=== PATIENT | female | born 1955 | race Caucasian/White ===

== ENCOUNTER → 2017-01-03 | Outpatient (CLI) | payer MEDICARE ==
--- NOTE | 2017-01-03 13:41 | REPMRS ---
Patient History The patient states she had a clinical breast exam in Patient is postmenopausal. No known family history of cancer. Digital Woman Screen Mammo: January 03, 2017 - Exam #: [id number] Bilateral CC and MLO view(s) were taken. Technologist: Luna Dutta, Technologist Prior study comparison: October 23, 2015, digital woman screen mammo performed at [facility]. October 21, 2014, digital woman screen mammo performed at [facility] to [facility]. FINDINGS: There are scattered fibroglandular densities. There has been no change in the appearance of the mammogram from the prior studies. There is a mild amount of residual fibroglandular tissue which is fairly symmetric. There is no interval development of dominant mass, architectural distortion, or clustered microcalcification suggestive of malignancy. ASSESSMENT: BI-RADS/ACR category 1 mammogram. Negative. Recommendation Routine screening mammogram in 1 year (for women over age 40). This mammogram was interpreted with the aid of an FDA-approved computer-aided dectection system. Electronically Signed By: Terell Zarate MD 01/03/17 1103
== END ==
LOC: M WHC 11:00
PROVIDERS: ATTEND Nurse Practitioner Family
DX: Z12.31 Encounter for screening mammogram for malignant neoplasm of breast (principal); Z78.0 Asymptomatic menopausal state

== ENCOUNTER → 2017-10-01 | Outpatient (CLI) | payer MEDICARE ==
--- NOTE | 2017-10-03 20:09 | SLEEPHOME ---
DATE OF PROCEDURE: 10/01/2017 ORDERED BY: Dea Sharma Diagnostic home sleep testing was performed due to concern for the obstructive sleep apnea syndrome. For testing, a NOX-T3 respiratory monitoring device was used. Continuous record was made of pulse, oxygen saturation, air flow, chest and abdominal strain and body position. 11 hours and 59 minutes of data were reviewed. 8 hours and 23 minutes were marked as time in bed. During the interval marked time in bed, there were 72 respiratory events identified of 10 seconds in duration or greater for a respiratory event index of 8.6. The events were primarily obstructive. Baseline pulse rate 81 beats per minute. Pulse rate ranged 68 to 105. Baseline saturation 91%. Lowest oxygen saturation 83%. Testing was performed in both the supine and nonsupine positions. IMPRESSION: Abnormal home sleep test with repetitive respiratory events and oxygen desaturation to 83% with a respiratory event index of 8.6 is consistent with the obstructive sleep apnea syndrome. RECOMMENDATION: The patient should be encouraged to undergo a formal sleep evaluation and in laboratory pressure titration.
== END ==
LOC: M SLEEP HO 09:46
PROVIDERS: ATTEND Nurse Practitioner Adult Health
DX: G47.33 Obstructive sleep apnea (adult) (pediatric) (principal)

== ENCOUNTER → 2018-01-05 | Outpatient (CLI) | payer MEDICARE | LOC: M WHC 10:24 | DX: Z12.31 Encounter for screening mammogram for malignant neoplasm of breast (principal); Z01.419 Encounter for gynecological examination (general) (routine) without abnormal findings (principal); Z78.0 Asymptomatic menopausal state; Z12.12 Encounter for screening for malignant neoplasm of rectum | CPT/HCPCS: 77067 ==

== ENCOUNTER → 2018-03-27 | Outpatient (CLI) | payer MEDICARE ==
[~2018-03-27] MED LIST: E-Z-GAS II EFFERVESCENT PACKET (SODIUM BICARB./CITRIC ACID/SIMETHICONE) As Ordered; E-Z-HD 98% w/w 340GM SUSP BTL As Ordered; E-Z-PAQUE 96% w/w SUSP 176GM BTL As Ordered
== END ==
LOC: M RAD 09:23
DX: K21.9 Gastro-esophageal reflux disease without esophagitis (principal); R10.13 Epigastric pain; K44.9 Diaphragmatic hernia without obstruction or gangrene
CPT/HCPCS: 74245

== ENCOUNTER 2018-08-11 19:06 | Emergency (ER) | payer MEDICARE ==
[2018-08-11] MEDS: ASPIRIN 325 MG TAB PO (19:45)
[2018-08-11 20:10] LABS: BASO % 0.4 % (0.0-1.0); EOS # 0.1 10^3/uL (0.0-0.50); EOS % 0.5 % (0.0-3.0); HEMATOCRIT 38.6 % (36.0-47.0); HEMOGLOBIN 12.4 g/dl (12.0-15.5); IMMATURE GRANULOCYTE % 0.3 % (0-3.0); LYMPH # 2.6 10^3/uL (1.5-4.5); LYMPH % 23.8 % (24.0-44.0); MEAN CORPUSCULAR HEMOGLOBIN 26.4 pg (27.0-33.0); MEAN CORPUSCULAR HGB CONC 32.1 g/dl (32.0-36.5); MEAN CORPUSCULAR VOLUME 82.3 fl (80.0-96.0); MONO # 0.7 10^3/uL (0.0-0.8); MONO % 6.5 % (0.0-5.0); NEUTROPHILS # 7.4 10^3/uL (1.8-7.7); NEUTROPHILS % 68.5 % (36.0-66.0); PLATELET COUNT, AUTOMATED 294 10^3/uL (150-450); RED BLOOD COUNT 4.69 10^6/uL (4.00-5.40); RED CELL DISTRIBUTION WIDTH 16.7 % (11.5-14.5); WHITE BLOOD COUNT 10.8 10^3/uL (4.0-10.0)
[2018-08-11] MEDS: NS 500 ML IV (20:18)
[2018-08-11 20:32] LABS: INR 0.92; PROTHROMBIN TIME 12.5 SECONDS (12.1-14.4)
[2018-08-11 20:33] LABS: PARTIAL THROMBOPLASTIN TIME 26.4 SECONDS (25.4-37.6)
[2018-08-11 20:50] LABS: ANION GAP 8 MEQ/L (8-16); BLOOD UREA NITROGEN 16 MG/DL (7-18); CALCIUM LEVEL 11.2 MG/DL (8.8-10.2); CARBON DIOXIDE LEVEL 26 MEQ/L (21-32); CHLORIDE LEVEL 107 MEQ/L (98-107); CK-MB VALUE MASS < 1.0 NG/ML (<3.6); CPK CREATINE PHOSPHOKINASE 56 U/L (26-192); CREATININE FOR GFR 1.02 MG/DL (0.55-1.30); GLOMERULAR FILTRATION RATE 58.1 (>45); GLUCOSE, FASTING 120 MG/DL (70-100); MB/CK RELATIVE INDEX 1.79 (< OR =4); POTASSIUM SERUM 4.4 MEQ/L (3.5-5.1); SODIUM LEVEL 141 MEQ/L (136-145); TROPONIN I < 0.02 NG/ML (< 0.10)
[2018-08-11] MEDS ORDERED: ISOVUE-370 76% 100ML VIAL (Q9967) As Ordered (22:01)
[2018-08-11] MEDS: cloNIDine 0.1 MG TAB PO (22:58)
[2018-08-11] MEDS: KETOROLAC 30 MG/ML VIAL (J1885) IV (23:52)
[2018-08-12 00:38] LABS: CK-MB VALUE MASS < 1.0 NG/ML (<3.6); CPK CREATINE PHOSPHOKINASE 64 U/L (26-192); MB/CK RELATIVE INDEX 1.56 (< OR =4); TROPONIN I 0.02 NG/ML (< 0.10)
== END 2018-08-12 01:00 | disposition home or self-care (01) ==
LOC: M ED 08-12 01:00
DX: R07.89 Other chest pain (principal); R52 Pain, unspecified; I10 Essential (primary) hypertension; M79.7 Fibromyalgia; Z87.891 Personal history of nicotine dependence; Z79.82 Long term (current) use of aspirin; Z79.899 Other long term (current) drug therapy; Z88.2 Allergy status to sulfonamides
CPT/HCPCS: Q9967

== ENCOUNTER → 2018-08-18 | Outpatient (CLI) | payer MEDICARE ==
[2018-08-18 19:32] LABS: BASO # 0.1 10^3/uL (0.0-0.2); BASO % 0.6 % (0.0-1.0); EOS # 0.1 10^3/uL (0.0-0.50); EOS % 1.2 % (0.0-3.0); HEMATOCRIT 43.1 % (36.0-47.0); HEMOGLOBIN 13.6 g/dl (12.0-15.5); IMMATURE GRANULOCYTE % 0.5 % (0-3.0); LYMPH # 1.9 10^3/uL (1.5-4.5); LYMPH % 19.1 % (24.0-44.0); MEAN CORPUSCULAR HEMOGLOBIN 26.7 pg (27.0-33.0); MEAN CORPUSCULAR HGB CONC 31.6 g/dl (32.0-36.5); MEAN CORPUSCULAR VOLUME 84.7 fl (80.0-96.0); MONO # 0.6 10^3/uL (0.0-0.8); MONO % 5.9 % (0.0-5.0); NEUTROPHILS # 7.4 10^3/uL (1.8-7.7); NEUTROPHILS % 72.7 % (36.0-66.0); PLATELET COUNT, AUTOMATED 415 10^3/uL (150-450); RED BLOOD COUNT 5.09 10^6/uL (4.00-5.40); RED CELL DISTRIBUTION WIDTH 16.5 % (11.5-14.5); WHITE BLOOD COUNT 10.2 10^3/uL (4.0-10.0)
[2018-08-18 20:02] LABS: ALBUMIN 4.1 GM/DL (3.2-5.2); ALBUMIN/GLOBULIN RATIO 1.05 (1.00-1.93); ALKALINE PHOSPHATASE 88 U/L (45-117); ALT/SGPT 55 U/L (12-78); ANION GAP 9 MEQ/L (8-16); AST/SGOT 38 U/L (7-37); BILIRUBIN,TOTAL 0.3 MG/DL (0.2-1.0); BLOOD UREA NITROGEN 15 MG/DL (7-18); CALCIUM LEVEL 11.5 MG/DL (8.8-10.2); CARBON DIOXIDE LEVEL 24 MEQ/L (21-32); CHLORIDE LEVEL 108 MEQ/L (98-107); FREE T4 1.15 NG/DL (0.76-1.46); GLOMERULAR FILTRATION RATE 37.2 (>45); GLUCOSE, FASTING 139 MG/DL (70-100); POTASSIUM SERUM 4.8 MEQ/L (3.5-5.1); SODIUM LEVEL 141 MEQ/L (136-145)
[2018-08-18 20:04] LABS: FOLATE > 24.0 NG/ML; PTH INTACT 313.8 PG/ML (18.5-88.0); TOTAL 25(OH) VITAMIN D 11.4 NG/ML (30.0-100.0)
== END ==
LOC: M WUC 16:31
DX: J06.9 Acute upper respiratory infection, unspecified (principal); R05 Cough; R53.83 Other fatigue; Z79.899 Other long term (current) drug therapy
CPT/HCPCS: 82746

== ENCOUNTER → 2019-01-06 | Outpatient (CLI) | payer MEDICARE ==
[~2019-01-06] MED LIST changes: +AMIT50TA PO; +ASPI81CH32 PO; +CO Q200C10 PO; -E-Z-GAS II EFFERVESCENT PACKET (SODIUM BICARB./CITRIC ACID/SIMETHICONE) As Ordered; -E-Z-HD 98% w/w 340GM SUSP BTL As Ordered; -E-Z-PAQUE 96% w/w SUSP 176GM BTL As Ordered; +FISH1000 PO; +GARL10004 PO; +LOSA100T50 PO; +MULTCAP PO; +TURM500T PO
--- NOTE | 2019-01-06 11:53 | REPMRS ---
Patient History The patient states she had a clinical breast exam in 01/05 No known family history of cancer. Digital Woman Screen Mammo: January 06, 2019 - Exam #: [id number] Bilateral CC and MLO view(s) were taken. Technologist: Kelsey Kahn, Technologist Prior study comparison: January 05, 2018, digital woman screen mammo performed at [facility]. January 03, 2017, digital woman screen mammo performed at [facility]. FINDINGS: There are scattered fibroglandular densities. There has been no change in the appearance of the mammogram from the prior studies. There is a mild amount of residual fibroglandular tissue which is fairly symmetric. There is no interval development of dominant mass, architectural distortion, or clustered microcalcification suggestive of malignancy. There are scattered, small, benign calcifications of doubtful clinical significance. 3-D tomosynthesis shows no additional findings. The patient's Tyrer-Cuzick lifetime risk assessment score is 5.2 %. No significant changes when compared with prior studies. Assessment: BI-RADS/ACR category 2 mammogram. Benign Findings. Recommendation Routine screening mammogram in 1 year (for women over age 40). This mammogram was interpreted with the aid of an FDA-approved computer-aided dectection system. A. Negative x-ray reports should not delay biopsy if a dominant or clinically suspicious mass is present. B. Four to eight percent of cancers are not identified by mammography. C. Adenosis and dense breast may obscure an underlying neoplasm. Electronically Signed By: Renaldo Oh MD 01/06/19 [id number]
--- NOTE | 2019-01-07 11:08 | DEXA ---
AP SPINE L1 - L4 1.239 0.4 1.9 LT FEMUR TOTAL 0.935 -0.6 0.6 LT NECK 0.787 -1.8 -0.3 RT FEMUR TOTAL 0.864 -1.1 0.1 RT NECK 0.845 -1.4 0.1 TOTAL BODY TOTAL OTHER COMMENTS: Normal bone densitometry of the spine. There is low bone density of the left hip. There is low bone density of the right hip. There is degenerative change in the spine which may artificially elevate the BMD. The decreased density of the spine does not represent a significant change since 11/08/2010. The decreased density of the left hip does represent a significant change since 11/08/2010. The decreased density of the right hip does represent a significant change. The density of the spine has decreased 0.3% since the initial exam on 11/08/2002. The spine density has increased 1.8% since the most recent exam on 11/08/2010. The density of the left hip has decreased 12.1% since the initial exam on 11/08/2002. The density of the left hip has decreased 6.5% since the most recent exam on 11/08/2010. The density of the right hip has decreased 6.9% since the initial exam on 11/08/2002. The density of the right hip has decreased 2.4% since the most recent exam on 11/08/2010. FOLLOW-UP: Recommendation for the next bone density exam: 2 years. KARL
== END ==
LOC: M WHC 09:03
PROVIDERS: ATTEND Nurse Practitioner Family
DX: Z01.419 Encounter for gynecological examination (general) (routine) without abnormal findings (principal); Z12.31 Encounter for screening mammogram for malignant neoplasm of breast; N95.9 Unspecified menopausal and perimenopausal disorder; Z12.12 Encounter for screening for malignant neoplasm of rectum
CPT/HCPCS: 77063; 77067; 77080; 82270; G0101

== ENCOUNTER → 2019-02-27 | Outpatient (CLI) | payer MEDICARE ==
[~2019-02-27] MED LIST changes: -ASPI81CH32 PO; +ASPI81CH33 PO
--- NOTE | 2019-02-27 09:55 | REP ---
CT abdomen pelvis without IV or oral contrast: History: Kidney calculus. Comparison CT study March 10, 2011. CT findings: Preliminary digital tank stave assembler radiograph demonstrates an unremarkable bowel gas pattern. The lung bases are clear. There is no focal liver lesion. The gallbladder is not seen. By history, the gallbladder is surgically absent. No adrenal lesion is seen. Spleen is unremarkable. No pancreatic abnormalities observed. Small and large intestinal bowel loops are normal in the abdomen and pelvis. Normal appendix is seen in the right lower quadrant. Uterus is surgically absent as well. Urinary bladder is intact. The kidneys are morphologically intact. No hydronephrosis or intrarenal calculus is seen. No ureteral calculus is observed on either side. No pelvic mass or adenopathy is seen. No abdominal wall defect is appreciated. Bone window settings show no bony destructive lesion. Impression: No urinary tract calculus noted. No hydronephrosis seen. Post cholecystectomy and hysterectomy. Otherwise unremarkable CT abdomen and pelvis. Electronically Signed by Wu Roth MD 02/27/2019 02:26 P
== END ==
LOC: M RAD 08:49
PROVIDERS: ATTEND Internal Medicine Nephrology
DX: Z87.442 Personal history of urinary calculi (principal); Z90.49 Acquired absence of other specified parts of digestive tract; Z90.710 Acquired absence of both cervix and uterus

== ENCOUNTER → 2019-05-05 | Outpatient (REF) | payer MEDICARE | LOC: M LAB REF 11:55 | PROVIDERS: ATTEND Internal Medicine Endocrinology, Diabetes & Metabolism | DX: E21.3 Hyperparathyroidism, unspecified (principal) ==

== ENCOUNTER 2019-08-27 12:49 | Inpatient (IN) | payer MEDICARE ==
[~2019-08-27] VITALS: Ht 160 cm; Wt 105.8 kg
[2019-08-27] MEDS ORDERED: NS 1,000 ML IV SCH (13:20)
[2019-08-27] MEDS ORDERED: CINA30TA5 PO (13:21)
[2019-08-27] MEDS ORDERED: CARV6.25 PO (13:21)
[2019-08-27] MEDS ORDERED: ASPIRIN 81 MG CHEW TABLET PO ONE (13:30)
[2019-08-27] MEDS: METOPROLOL 5 MG/5 ML VIAL IV SCH ×3 (13:54→14:14)
[2019-08-27 13:58] LABS: BASO # 0.1 10^3/uL (0.0-0.2); BASO % 0.6 % (0.0-1.0); EOS # 0.2 10^3/uL (0.0-0.5); EOS % 2.1 % (0.0-3.0); HEMATOCRIT 44.8 % (36.0-47.0); HEMOGLOBIN 14.5 g/dl (12.0-15.5); LYMPH # 3.7 10^3/uL (1.5-5.0); LYMPH % 34.8 % (24.0-44.0); MEAN CORPUSCULAR HEMOGLOBIN 28.7 pg (27.0-33.0); MEAN CORPUSCULAR HGB CONC 32.4 g/dl (32.0-36.5); MEAN CORPUSCULAR VOLUME 88.5 fl (80.0-96.0); MONO # 0.8 10^3/uL (0.0-0.8); MONO % 7.8 % (0.0-5.0); NEUTROPHILS # 5.8 10^3/uL (1.5-8.5); NEUTROPHILS % 54.6 % (36.0-66.0); PLATELET COUNT, AUTOMATED 324 10^3/uL (150-450); RED BLOOD COUNT 5.06 10^6/uL (4.00-5.40); WHITE BLOOD COUNT 10.5 10^3/uL (4.0-10.0)
--- NOTE | 2019-08-27 14:02 | REP ---
Chest x-ray: Two views. History: Chest pain. Comparison chest x-ray: February 07, 2015. Findings: EKG monitoring electrodes overlie the chest. Heart is not enlarged. The thoracic aorta somewhat tortuous. The pleural angles are sharp. There are degenerative changes in the thoracic spine. No infiltrate is seen in the lung genao. Impression: No active disease. Electronically Signed by Wu Roth MD 08/27/2019 01:53 P
[2019-08-27 14:07] LABS: INR 0.98; PROTHROMBIN TIME 12.7 SECONDS (11.8-14.0)
[2019-08-27 14:08] LABS: PARTIAL THROMBOPLASTIN TIME 30.2 SECONDS (25.0-38.4)
[2019-08-27 14:29] LABS: ALBUMIN 3.9 GM/DL (3.2-5.2); ALT/SGPT 29 U/L (12-78); BILIRUBIN,DIRECT < 0.1 MG/DL (0.0-0.2); BILIRUBIN,TOTAL 0.4 MG/DL (0.2-1.0); BLOOD UREA NITROGEN 14 MG/DL (7-18); CALCIUM LEVEL 8.1 MG/DL (8.8-10.2); CARBON DIOXIDE LEVEL 25 MEQ/L (21-32); CHLORIDE LEVEL 106 MEQ/L (98-107); CK-MB VALUE MASS < 1.0 NG/ML (<3.6); CPK CREATINE PHOSPHOKINASE 109 U/L (26-192); CREATININE FOR GFR 1.17 MG/DL (0.55-1.30); FREE T4 1.08 NG/DL (0.76-1.46); GLOMERULAR FILTRATION RATE 49.4 (>45); GLUCOSE, FASTING 91 MG/DL (70-100); MB/CK RELATIVE INDEX 0.92 (< OR =4); NT-PRO BNP 1618 PG/ML (<125); POTASSIUM SERUM 4.4 MEQ/L (3.5-5.1); SODIUM LEVEL 142 MEQ/L (136-145); TOTAL PROTEIN 7.9 GM/DL (6.4-8.2); TROPONIN I < 0.02 NG/ML (< 0.10)
[2019-08-27] MEDS ORDERED: VITA50005 PO (15:22)
[2019-08-27] MEDS ORDERED: COQ1100C5 PO (15:22)
[2019-08-27] MEDS ORDERED: GARL3CAP4 PO (15:22)
[2019-08-27] MEDS ORDERED: RA T500C2 PO (15:22)
[2019-08-27] MEDS ORDERED: MOM 30ML SUSPENSION UDC PO PRN (16:00)
[2019-08-27] MEDS ORDERED: ACETAMINOPHEN TAB 650MG DOSE (2X325MG) PO PRN (16:00)
--- NOTE | 2019-08-27 17:03 | HPEPDOC ---
[facility] Medical History & Physical Date of Admission Aug 27, 2019 Date of Service: Aug 27, 2019 History and Physical CHIEF COMPLAINT: Sent from nephrology for concerns of irregular heartbeat HISTORY OF PRESENT ILLNESS: Ms. Saenz is a 63-year-old female with a past medical history significant for narcolepsy, hyperparathyroidism, hypertension, fibromyalgia, who presents to the ED following a nephrology consult where concerns of an irregular heartbeat were noted. Upon admission to the ED she was noted to be in sustained A. fib. She states that she is asymptomatic and that she feels no palpitations, fluttering, chest pain, presyncope. She states she had no previous knowledge of her A. fib. She denies any existence of any previous heart condition. She also states no known family history of cardiac illness except for mother who has CHF. Upon admission to the ER, her heart rate is noted to be proximately 170 bpm which was subsequently lowered to the 140s by administration of 5 mg metoprolol tartrate. PAST MEDICAL HISTORY: Narcolepsy. Hyperparathyroidism-unspecified Hypertension controlled , sertraline 100 mg tablet Previous history of hyperlipidemia-has been off meds since probably 5 years. Fibromyalgia-not on any medications PAST SURGICAL HISTORY: C-sections 2. Cholecystectomy. Partial hysterectomy. Attempted parathyroidectomy but unable to find parathyroids. 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 Quit 40 years ago ETOH: Social drinker Illicit drug use: Denies IV drug use: Denies Other relevant social factors: Drinks 2 cups of coffee a day FAMILY HISTORY: Father: Denies significant history Mother: CHF ALLERGIES: Sulfonamide antibiotics. Pruritus. REVIEW OF SYSTEMS: CONSTITUTIONAL: Denies recent weight gain, fever, chills, fatigue HEENT: Denies vision or hearing changes, headache, pharyngitis, lymphadenopathy CARDIOVASCULAR: Denies chest pain, palpitations, fluttering heart, syncope RESPIRATORY: Denies short of breath, cough, pleuritic chest pain GASTROINTESTINAL: Denies abdominal pain, distention, nausea, vomiting, constipation, diarrhea GENITOURINARY: Denies dysuria, polyuria or oliguria MUSCULOSKELETAL: Denies recent onset muscle weakness. NEUROLOGICAL: Denies focal deficits, seizure, headache ENDOCRINE: Denies recent weight loss, fever, heart fluttering, palpitations HEMATOLOGIC/LYMPHATIC: Denies recent weight loss, fever, chills, edema, pharyngitis HOME MEDICATIONS: Please see below. PHYSICAL EXAMINATION: VITAL SIGNS: Temperature 97.7, pulse 146, respiratory rate 20, blood pressure 139/80, pulse oximetry 98% on room air. GENERAL APPEARANCE: Patient is a obese female in no apparent distress. HEENT: No scleral icterus, jaundice, lymphadenopathy, pharyngitis, nystagmus. Overall atraumatic CARDIOVASCULAR: Irregularly irregular heart rhythm noted. Patient's pulses are unsynchronized from heartbeat. LUNGS: Lungs clear to auscultation bilaterally with vesicular lung sounds heard throughout ABDOMEN: Obese abdomen noted. Normal bowel sounds all 4 quadrants. No organome renée, distention, bruising, scars, or bruits were noted. No tenderness to palpation. MUSCULOSKELETAL: No muscle atrophy was noted. Normal range of motion in all 4 extremities. EXTREMITIES: No edema noted. Extremities were well-perfused with normal capillary refill times. No excoriations, rashes were noted. No cyanosis. Patient has her fibromyalgia and was noted to have allodynia upon palpation of arms and legs. NEUROLOGICAL: No focal deficits noted. Patient alert and oriented 3. Patient has fibromyalgia and was noted to have allodynia upon palpation of her arms and legs. PSYCHIATRIC: Patient will mannered and cooperative to exam. No history of psychiatric illness. LABORATORY DATA: See below. IMAGING: Chest x-ray upon admission was negative for active disease. MICROBIOLOGY: Please see below. ASSESSMENT: #A. Fib with RVR: Patient presents with new onset A. fib, which was noted during a nephrology examination today. Patient was unaware of her atrial fibrillation and has no previous cardiac history. Upon admission to ER, patient's heart rate was approximately 170 bpm and was subsequently lowered by administration of 5 mg metoprolol to 140 beats per minute. -Rate control with metoprolol tartrate 25 mg PO Q6H [facility] with targeted heart rate below 120. -Anticoagulation with Apixaban 5 mg PO BID QUANG -Patient placed on telemetry for 48 hours -Activity as tolerated -Echocardiogram ordered and pending. #Hypertension: Patient has history of hypertension. She was being medicated with losartan and carvedilol. Patient's home medications will be held during her stay at hospital. -Start metoprolol tartrate 25 mg every 6 hours by mouth -If patient hypertensive becomes hypertensive consider continuing Losartan 100mg -BNP noted to be 1618 upon admission. Chest x-ray negative for enlarged heart and no edema noted. -Exam patient denies orthopnea, exertional dyspnea, PND. Echocardiogram will show signs of heart failure is present. #Hyperparathyroidism-unspecified: Patient has previous history of hyperparathyroidism. Upon admission to ER. Patient's calcium was 8.1. -Continue home medication Cinacalcet 30 mg twice a day by mouth -Serial BMPs will show trended patient's calcium and will consider holding cinacalcet calcium levels continue to drop. #Fibromyalgia: She has history of fibromyalgia, but is not currently taking any medications. Patient is sensitive to touch, so will keep her fibromyalgia in mind during her stay at the hospital. -Continue Amitryptyline HCl 50 mg PO BID Vital Signs Vital Signs Date Time Temp Pulse Resp B/P (MAP) Pulse Ox O2 Delivery O2 Flow Rate FiO2 08/27/19 14:20 146 139/80 (99) 96 Room Air 08/27/19 12:50 97.7 20 Laboratory Data Labs 24H Laboratory Tests 2 08/27/19 13:20: Immature Granulocyte % (Auto) 0.1, White Blood Count 10.5H, Red Blood Count 5.06, Hemoglobin 14.5, Hematocrit 44.8, Mean Corpuscular Volume 88.5, Mean Corpuscular Hemoglobin 28.7, Mean Corpuscular Hemoglobin Concent 32.4, Red Cell Distribution Width 14.6H, Platelet Count 324, Neutrophils (%) (Auto) 54.6, Lymphocytes (%) (Auto) 34.8, Monocytes (%) (Auto) 7.8H, Eosinophils (%) (Auto) 2.1, Basophils (%) (Auto) 0.6, Neutrophils # (Auto) 5.8, Lymphocytes # (Auto) 3.7, Monocytes # (Auto) 0.8, Eosinophils # (Auto) 0.2, Basophils # (Auto) 0.1, Nucleated Red Blood Cells % (auto) 0.0, Prothrombin Time 12.7, Prothromb Time International Ratio 0.98, Activated Partial Thromboplast Time 30.2, Anion Gap 11, Glomerular Filtration Rate 49.4, Calcium Level 8.1L, Aspartate Amino Transf (AST/SGOT) 23, Alanine Aminotransferase (ALT/SGPT) 29, Alkaline Phosphatase 77, Total Bilirubin 0.4, Direct Bilirubin < 0.1, Total Creatine Kinase 109, Creatine Kinase MB < 1.0, Creatine Kinase MB Relative Index 0.92, Troponin I < 0.02, RC-[id number]-M-Type Natriuretic Peptide 1618H, Total Protein 7.9, Albumin 3.9, Albumin/Globulin Ratio 0.98L, Free Thyroxine 1.08 CBC/BMP Laboratory Tests 08/27/19 13:20 Red Blood Count 5.06, Mean Corpuscular Volume 88.5, Mean Corpuscular Hemoglobin 28.7, Mean Corpuscular Hemoglobin Concent 32.4, Red Cell Distribution Width 14.6 H, Neutrophils (%) (Auto) 54.6, Lymphocytes (%) (Auto) 34.8, Monocytes (%) (Auto) 7.8 H, Eosinophils (%) (Auto) 2.1, Basophils (%) (Auto) 0.6, Neutrophils # (Auto) 5.8, Lymphocytes # (Auto) 3.7, Monocytes # (Auto) 0.8, Eosinophils # (Auto) 0.2, Basophils # (Auto) 0.1 Home Medications Scheduled Amitriptyline HCl (Amitriptyline HCl) 50 Mg Tab, 50 MG PO QHS Carvedilol (Carvedilol) 6.25 Mg Tablet, 6.25 MG PO BID Cinacalcet HCl (Cinacalcet HCl) 30 Mg Tablet, 30 MG PO BID Ergocalciferol (Vitamin D2) (Vitamin D2) 50,000 Unit Capsule, 50,000 UNIT PO QWEEK WEDNESDAYS Garlic (Garlic) 1,500 Mg Capsule, 1,500 MG PO QHS Losartan Potassium (Losartan Potassium) 100 Mg Tab, 100 MG PO QHS Multivitamin (Multivitamins) 1 Cap Cap, 1 CAP PO DAILY Dunlap-3 Fatty Acids/Fish Oil (Fish Oil 1,000 mg Capsule) 1,000 Mg Cap, 1,000 MG PO DAILY Turmeric Root Extract (Turmeric) 500 Mg Capsule, 500 MG PO BID Ubidecarenone (Co Q-10) 100 Mg Capsule, 100 MG PO QHS Allergies Coded Allergies: Sulfa (Sulfonamide Antibiotics) (Verified Allergy, Unknown, 08/27/19) HIVES A-FIB/CHADSVASC A-FIB History Current/History of A-Fib/PAF?: Yes Current PO Anticoag Therapy: Yes GME ATTESTATION GME ATTESTATION My faculty preceptor for this patient encounter was physically present during the encounter and was fully available. All aspects of the patient interview, examination, medical decision making process, and medical care plan development were reviewed and approved by the faculty preceptor. The faculty preceptor is aw are and concurs with the plan as stated in the body of this note and will attest to such by his/her cosignature. ATTENDING NOTE I, Pritesh Archer, have independently examined this patient and performed my own physical exam, as well as reviewed the documentation and edited where necessary. I have discussed in detail with the resident / student the findings and plan of treatment as documented by the resident / student and edited their note. I agree with their findings and treatment plan and have edited their documentation. I will continue to follow the patient during this hospital stay. CHIKI HORNE OMS-3 Aug 27, 2019 17:03 PRITESH ARCHER MD Aug 28, 2019 10:14
[2019-08-27 18:55] VITALS: BP 174/80
[2019-08-27] MEDS: METOPROLOL TART 25 MG TABLET PO SCH ×2 (19:01→23:34)
--- NOTE | 2019-08-27 19:04 | ECGEPIP ---
[facility] - ED Test Date: 2019-08-27 Pat Name: RAMON CAMERON Department: Room: [place] [address] Gender: Female Slash Trimmer: jacquelyn : 1955 Requested By: JACKELYN BISHOP Order Number: [id number] Reading MD: Nimesh Mackenzie Measurements Intervals [place] Rate: 157 P: IN: 0 QRS: 11 QRSD: 83 T: 32 QT: 277 QTc: 448 Interpretive Statements ATRIAL FIBRILLATION WITH RAPID VENTRICULAR RESPONSE MINIMAL ST DEPRESSION RHYTHM/RATE CHANGE COMPARED TO 08/11/18 Electronically Signed on 08-27-2019 19:04:25 EDT by Nimesh Mackenzie
--- NOTE | 2019-08-27 19:07 | ECGEPIP ---
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
[2019-08-27 20:00] VITALS: BP 161/80
[2019-08-27] MEDS ORDERED: AMITRIPTYLINE 50 MG TAB PO SCH (21:00)
[2019-08-27] MEDS: CINACALCET 30 MG TAB (SENSIPAR) PO SCH (21:30)
[2019-08-27] MEDS: APIXABAN 5 MG TAB (ELIQUIS) PO SCH (21:30)
[2019-08-27 21:38] VITALS: BP 150/90
[2019-08-28] VITALS: BP 129/66
[2019-08-28 04:00] VITALS: BP 142/72
[2019-08-28] MEDS: METOPROLOL TART 25 MG TABLET PO SCH (06:04)
[2019-08-28 06:51] LABS: CALCIUM LEVEL 7.6 MG/DL (8.8-10.2); CREATININE FOR GFR 1.05 MG/DL (0.55-1.30); POTASSIUM SERUM 4.5 MEQ/L (3.5-5.1)
[2019-08-28 07:15] LABS: HEMATOCRIT 37.7 % (36.0-47.0); MEAN CORPUSCULAR HEMOGLOBIN 28.6 pg (27.0-33.0); MEAN CORPUSCULAR HGB CONC 31.8 g/dl (32.0-36.5); PLATELET COUNT, AUTOMATED 268 10^3/uL (150-450); RED BLOOD COUNT 4.19 10^6/uL (4.00-5.40); WHITE BLOOD COUNT 9.5 10^3/uL (4.0-10.0)
[2019-08-28 08:00] VITALS: BP 137/75
[2019-08-28] MEDS: CINACALCET 30 MG TAB (SENSIPAR) PO SCH (09:12)
[2019-08-28] MEDS: APIXABAN 5 MG TAB (ELIQUIS) PO SCH (09:12)
[2019-08-28 12:00] VITALS: BP 142/90
[2019-08-28] MEDS ORDERED: METOPROLOL SUCC *XL* 25MG TAB (TopROL *XL*) PO SCH (12:00)
[2019-08-28 12:02] VITALS: BP 142/90
[2019-08-28] MEDS ORDERED: ELIQ5TAB PO (14:22)
[2019-08-28] MEDS ORDERED: METO1TAB32 PO (14:22)
[2019-08-28] MEDS ORDERED: LOSA50TA88 PO (14:22)
--- NOTE | 2019-08-28 15:23 | DS.PDOC ---
Discharge Summary General Date of Admission Aug 27, 2019 at 15:55 Date of Discharge 08/28/19 Attending Physician: PRITESH AGARWAL MD Discharge Summary PROCEDURES PERFORMED DURING STAY: [None]. ADMITTING DIAGNOSES: 1. Atrial Fibrillation with RVR 2. Hypertension 3. Hyperparathyroidism 4. Fibromyalgia DISCHARGE DIAGNOSES: 1. Atrial Fibrillation with RVR 2. Hypertension 3. Hyperparathyroidism 4. Fibromyalgia COMPLICATIONS/CHIEF COMPLAINT: Atrial Fibrillation With RVR. HISTORY OF PRESENT ILLNESS: Patient is a 63 year old female who presented to the [facility] ER per recommendation of her Cutter Grind Tool Technician for suspected Atrial fibrillation with RVR. Patient has a past medical history significant for hyperparathyroidism, hypertension, and fibromyalgia. She stated that she was at her nephrology appointment when her Cutter Grind Tool Technician had noted an "irregular heartbeat". The patient stated that she had no symptoms. She denied any shortness of breath, chest pain/discomfort, or fluttering in her chest. She stated that to her knowledge she had never been told that she had anything wrong with her heart in the past. On presentation to the ER the patient was found to be in Atrial Fibrillation with RVR. She remained asymptomatic. The patient was given IV metoprolol with appropriate reduction in her heart rate. Hospitalist service was contacted for further evaluation and management of the patients new onset Atrial Fibrillation with RVR. On admission the patient remained vitally stable with adequate heart rate control. She was started on metoprolol tartrate 25 mg every 6 hours. The patient was started on Eliquis 5mg BID for anticoagulation given a CHADsVASC score of 2 for being female and hypertensive. The patient was monitored on telemetry overnight. The patient remained adequately rate controlled overnight. Her echocardiogram was performed and was without any significant findings. Patient was subsequently discharged with instructions to follow-up with her PCP in 7-10 days. DISCHARGE MEDICATIONS: Please see below. ALLERGIES: Please see below. PHYSICAL EXAMINATION ON DISCHARGE: VITAL SIGNS: Please see below. GENERAL: Awake, alert, and oriented. Appears in no acute distress. Lying comfortably in bed. Conversive HEENT: Atraumatic, normocephalic. Eyes are nonicteric. trachea is midline NECK: No palpable cervical, axillary, or supraclavicular lymphadenopathy CARDIOVASCULAR EXAMINATION: Irregularly irregular rhythm. normal rate. No clicks, rubs, or murmurs. RESPIRATORY EXAMINATION: Clear vesicular breath sounds bilaterally with good respiratory effort. No wheezes, rhonchi, or rales. Symmetric chest expansion. ABDOMINAL EXAMINATION: Obese. Soft, nondistended. Nontender to palpation in all 4 quadrants. No rebound tenderness or guarding. Normoactive bowel sounds throughout EXTREMITIES: Mild nonpitting edema bilaterally. 2+ posterior tibial pulses and radial pulses bilaterally SKIN: No rashes or lesions NEUROLOGICAL EXAMINATION: Allodynia present in bilateral lower extremities. No focal neurological deficits PSYCHIATRIC EXAMINATION: Mood and affect appear appropriate LABORATORY DATA: Please see below. IMAGING: Chest x-ray: Two views. History: Chest pain. Comparison chest x-ray: February 07, 2015. Findings: EKG monitoring electrodes overlie the chest. Heart is not enlarged. The thoracic aorta somewhat tortuous. The pleural angles are sharp. There are degenerative changes in the thoracic spine. No infiltrate is seen in the lung genao. Impression: No active disease. Electronically Signed by Wu Roth MD 08/27/2019 01:53 P PROGNOSIS: Good ACTIVITY: [As tolerated]. DIET: As tolerated DISCHARGE PLAN: Patient is to be discharged home with follow-up with PCP in 1-2 weeks. She is stop her Carvedilol. She is to decrease her losartan dose from 100mg to 50mg QHS. She is to start Metoprolol succinate 25mg daily. She is to continue Eliquis 5mg BID. Patient was instructed to return to the ER if her symptoms return or worsen DISCHARGE CONDITION: [Stable]. TIME SPENT ON DISCHARGE: Greater than 40 minutes. Vital Signs/I&Os Vital Signs Date Time Temp Pulse Resp B/P (MAP) Pulse Ox O2 Delivery O2 Flow Rate FiO2 08/28/19 12:02 70 142/90 08/28/19 12:00 96.9 17 98 08/27/19 16:20 Room Air I&O- Last 24 Hours up to 6 AM 08/28/19 06:00 Intake Total 1000 ml Output Total 300 ml Balance 700 ml Laboratory Data Labs 24H Laboratory Tests 2 08/28/19 06:05: Anion Gap 4L, Glomerular Filtration Rate 56.0, Blood Urea Nitrogen 17, Creati nine 1.05, Sodium Level 139, Potassium Level 4.5, Chloride Level 107, Carbon Dioxide Level 28, Calcium Level 7.6L 08/28/19 07:04: Nucleated Red Blood Cells % (auto) 0.0 CBC/BMP Laboratory Tests 08/28/19 06:05 Calcium Level 7.6 L 08/28/19 07:04 Red Blood Count 4.19, Mean Corpuscular Volume 90.0, Mean Corpuscular Hemoglobin 28.6, Mean Corpuscular Hemoglobin Concent 31.8 L, Red Cell Distribution Width 14.7 H Discharge Medications Scheduled Amitriptyline HCl (Amitriptyline HCl) 50 Mg Tab, 50 MG PO QHS, (Reported) Apixaban (Eliquis) 5 Mg Tablet, 5 MG PO BID Cinacalcet HCl (Cinacalcet HCl) 30 Mg Tablet, 30 MG PO BID, (Reported) Ergocalciferol (Vitamin D2) (Vitamin D2) 50,000 Unit Capsule, 50,000 UNIT PO QWEEK, (Reported) [place] Garlic (Garlic) 1,500 Mg Capsule, 1,500 MG PO QHS, (Reported) Losartan Potassium (Losartan Potassium) 50 Mg Tablet, 50 MG PO QHS Metoprolol Succinate (Metoprolol Succinate) 25 Mg Tab.er.24h, 25 MG PO DAILY Multivitamin (Multivitamins) 1 Cap Cap, 1 CAP PO DAILY, (Reported) [place]-3 Fatty Acids/Fish Oil (Fish Oil 1,000 mg Capsule) 1,000 Mg Cap, 1,000 MG PO DAILY, (Reported) Turmeric Root Extract (Turmeric) 500 Mg Capsule, 500 MG PO BID, (Reported) Ubidecarenone (Co Q-10) 100 Mg Capsule, 100 MG PO QHS, (Reported) Allergies Coded Allergies: Sulfa (Sulfonamide Antibiotics) (Verified Allergy, Unknown, 08/27/19) HIVES GME ATTESTATION GME ATTESTATION My faculty preceptor for this patient encounter was physically present during the encounter and was fully available. All aspects of the patient interview, examination, medical decision making process, and medical care plan development were reviewed and approved by the faculty preceptor. The faculty preceptor is aware and concurs with the plan as stated in the body of this note and will attest to such by his/her cosignature. ATTENDING NOTE I, Pritesh Agarwal, have independently examined this patient and performed my own physical exam, as well as reviewed the documentation and edited where necessary. I have discussed in detail with the resident / student the findings and plan of treatment as documented by the resident / student and edited their note. I agree with their findings and treatment plan and have edited their documentation. I will continue to follow the patient during this hospital stay. Time spent on discharge: 35 minutes - I was called by Cardiology and informed of the results of the echocardiogram; normal EF, moderate mitral regurgitation / moderate tricuspid regurgitation, small pericardial effusion - no evidence of tamponade ILYA HERNÁNDEZ DO Aug 28, 2019 15:23 PRITESH AGARWAL MD Aug 28, 2019 15:38
--- NOTE | 2019-08-29 07:47 | ECHO ---
DATE OF SERVICE: REFERRING PROVIDER: Dr. Chad Betts PATIENT LOCATION: Room 3205 REASON FOR ECHOCARDIOGRAM: Cardiac dysrhythmias. 2D MEASUREMENTS: IVS: 1.0 cm LV: 4.4 cm LVPW: 1.0 cm LA: 3.8 cm Aorta: 2.9 cm RV: 2.4 cm IVC: 2.3 cm DOPPLER MEASUREMENTS: Peak velocity across the aortic valve: 1.5 m/s Peak velocity across the LVOT: 0.92 m/s Mitral E: 1.3 Mitral A: 0.69 with a ratio of 1.9 Maximum tricuspid valve velocity: 2.8 m/s 2D COMMENTS: 1. Normal left ventricular size, wall thickness, and low normal global left ventricular systolic function. The estimated left ventricular systolic ejection fraction is 55-60%. 2. Normal left atrium. Normal right atrium and right ventricle. 3. The atrial septum appeared to be normal without evidence of defect or shunt. 4. Trace to small pericardial effusion noted, no evidence of cardiac tamponade. 6. Mildly calcified aortic valve with normal leaflet excursion. Mildly calcified mitral annulus with normal anterior mitral valve leaflet motion. Normal tricuspid valve and pulmonic valve. The proximal pulmonary artery branches were not well visualized. 7. The inferior vena cava was mildly enlarged, central venous pressure might be elevated. Doppler, it detects mild to moderate mitral regurgitation, and mild to moderate tricuspid regurgitation. The calculated pulmonary artery systolic pressure varies between 30 to 40 mmHg. Assessment of the left ventricular diastolic function appeared to be normal. Trace aortic regurgitation also detected. IMPRESSION: 1. Normal global left ventricular systolic and diastolic function. 2. Aortic valve sclerosis with trace aortic regurgitation, but no aortic stenosis. 3. Mitral annulus calcification with mild to moderate mitral regurgitation. 4. Mild to moderate tricuspid regurgitation with mild pulmonary hypertension. 5. The inferior vena cava was mildly enlarged, central venous pressure may be elevated. The above was discussed with the hospitalist covering the patient.
== END 2019-08-28 15:00 | disposition home or self-care (01) | DRG 310 ==
LOC: M ED 12:49 → M ED INP 15:55 → M PCU 18:48
PROVIDERS: ADMIT Internal Medicine; ATTEND Internal Medicine
DX: I48.91 Unspecified atrial fibrillation (principal); I10 Essential (primary) hypertension; E21.3 Hyperparathyroidism, unspecified; G47.419 Narcolepsy without cataplexy; M79.7 Fibromyalgia; Z90.49 Acquired absence of other specified parts of digestive tract; Z87.891 Personal history of nicotine dependence; Z79.899 Other long term (current) drug therapy; Z88.2 Allergy status to sulfonamides

== ENCOUNTER 2020-04-17 18:50 | Inpatient (IN) | payer MEDICARE ==
[~2020-04-17] VITALS: Ht 160 cm; Wt 108.0 kg
[~2020-04-17 18:50] MED LIST changes: +CARV6.25 PO; +CINA30TA5 PO; +COQ1100C5 PO; +ELIQ5TAB PO; +GARL3CAP4 PO; +LOSA50TA88 PO; +METO1TAB32 PO; +RA T500C2 PO; +VITA50005 PO
[2020-04-17] MEDS ORDERED: METOPROLOL 5 MG/5 ML VIAL As Ordered ONE (19:21)
[2020-04-17] MEDS: METOPROLOL 5 MG/5 ML VIAL IV SCH ×3 (19:26→19:42)
[2020-04-17 19:50] LABS: BASO % 0.3 % (0.0-1.0); EOS # 0.5 10^3/uL (0.0-0.5); EOS % 3.7 % (0.0-3.0); HEMATOCRIT 38.6 % (36.0-47.0); LYMPH # 3.2 10^3/uL (1.5-5.0); LYMPH % 25.3 % (24.0-44.0); MEAN CORPUSCULAR HEMOGLOBIN 29.5 pg (27.0-33.0); MEAN CORPUSCULAR HGB CONC 33.7 g/dl (32.0-36.5); MEAN CORPUSCULAR VOLUME 87.5 fl (80.0-96.0); MONO # 0.9 10^3/uL (0.0-0.8); MONO % 6.8 % (0.0-5.0); NEUTROPHILS % 63.6 % (36.0-66.0); PLATELET COUNT, AUTOMATED 274 10^3/uL (150-450); RED BLOOD COUNT 4.41 10^6/uL (4.00-5.40); WHITE BLOOD COUNT 12.6 10^3/uL (4.0-10.0)
[2020-04-17 20:19] LABS: ALBUMIN 3.5 GM/DL (3.2-5.2); ALT/SGPT 21 U/L (12-78); BILIRUBIN,DIRECT 0.1 MG/DL (0.0-0.2); BILIRUBIN,TOTAL 0.4 MG/DL (0.2-1.0); BLOOD UREA NITROGEN 11 MG/DL (7-18); CALCIUM LEVEL 7.5 MG/DL (8.8-10.2); CARBON DIOXIDE LEVEL 26 MEQ/L (21-32); CHLORIDE LEVEL 108 MEQ/L (98-107); CK-MB VALUE MASS 1.5 NG/ML (<3.6); CPK CREATINE PHOSPHOKINASE 282 U/L (26-192); CREATININE FOR GFR 1.02 MG/DL (0.55-1.30); FREE T4 1.32 NG/DL (0.76-1.46); GLOMERULAR FILTRATION RATE 57.7 (>45); GLUCOSE, FASTING 124 MG/DL (70-100); LIPASE 61 U/L (73-393); MAGNESIUM LEVEL 1.6 MG/DL (1.8-2.4); MB/CK RELATIVE INDEX 0.53 (< OR =4); PHOSPHORUS LEVEL 4.6 MG/DL (2.5-4.9); POTASSIUM SERUM 3.6 MEQ/L (3.5-5.1); SODIUM LEVEL 145 MEQ/L (136-145); TOTAL PROTEIN 7.2 GM/DL (6.4-8.2); TROPONIN I < 0.02 NG/ML (< 0.10)
[2020-04-17] MEDS ORDERED: DIGOXIN INJ 0.5 MG/2 ML AMP (J1160) IV STA (20:24)
[2020-04-17] MEDS ORDERED: MAGNESIUM OXIDE 400 MG TAB (MAG-OX) PO ONE ×2 (20:45→22:30)
--- NOTE | 2020-04-17 20:56 | ECGEPIP ---
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
[2020-04-17] MEDS ORDERED: AMIODARONE 150MG/3ML INJ (J0282) IVP STA ×2 (21:41→22:52)
[2020-04-17] MEDS ORDERED: atenoloL 50 MG TAB PO ONE (21:45)
[2020-04-17] MEDS ORDERED: atenoloL 25 MG TAB As Ordered ONE (21:50)
[2020-04-17] MEDS ORDERED: ELIQ5TAB PO (22:26)
[2020-04-17] MEDS ORDERED: LOSA25TA14 PO (22:26)
[2020-04-17] MEDS ORDERED: CALC1CAP31 PO (22:29)
[2020-04-17] MEDS ORDERED: B-CO1TAB12 PO (22:29)
[2020-04-17] MEDS ORDERED: CALC1TAB9 PO (22:29)
[2020-04-17] MEDS ORDERED: CARV12.5 PO (22:29)
[2020-04-17] MEDS ORDERED: CALCIUM GLUCONATE 1,000 MG in D5W MINI-BAG PLUS 100 ML IV ONE (22:30)
[2020-04-17] MEDS ORDERED: ACETAMINOPHEN TAB 650MG DOSE (2X325MG) PO PRN (23:30)
[2020-04-17] MEDS ORDERED: ENOXAPARIN 100MG/1ML SYRINGE (J1650 PER 10MG) SC SCH (23:45)
--- NOTE | 2020-04-17 23:45 | HPEPDOC ---
General Date of Admission Date of Service: Apr 17, 2020 Chief Complaint The patient is a 64-year-old female admitted with a reason for visit of Post Surgical Issue. Source: Patient Exam Limitations: No limitations Timing/Duration: Other (since yesterday) Severity: Moderate Associated Symptoms: Other (. Paresthesia around mouth buzzing in the face and rest) History of Present Illness This is a 64 years old white female with past medical history of narcolepsy hyperparathyroidism, hypertension, hyperlipidemia, fibromyalgia, status post parathyroidectomy at [facility] on last Friday presented with chief complaints of numbness around her mouth and buzzing and humming noise and vibration feeling to her face and rest and also felt that her heart rate is irregular. Patient denies chest pain, shortness of breath, nausea, vomiting, diarrhea or abdominal pain Patient was found to be in the atrial fibrillation with a rapid ventricular response in the ED and was referred to us for admission Home Medications Scheduled Amitriptyline HCl (Amitriptyline HCl) 50 Mg Tab, 50 MG PO QHS, (Reported) Apixaban (Eliquis) 5 Mg Tablet, 5 MG PO BID, (Reported) B-Complex with Vitamin C (Vitamin B Complex-Vitamin C) 1 Each Tablet, 1 EACH PO DAILY, (Reported) Calcitriol (Calcitriol) 0.25 Mcg Capsule, 0.25 MCG PO 2XW, (Reported) friday and friday Calcium Citrate (Calcitrate) 200 Mg Tablet, 200 MG PO DAILY, (Reported) for 10 days, starting 04/16/20 Carvedilol (Carvedilol) 12.5 Mg Tablet, 12.5 MG PO BID, (Reported) Losartan Potassium (Losartan Potassium) 25 Mg Tablet, 25 MG PO BID, (Reported) Ubidecarenone (Co Q-10) 100 Mg Capsule, 100 MG PO QHS, (Reported) Allergies Coded Allergies: Sulfa (Sulfonamide Antibiotics) (Verified Allergy, Unknown, 08/27/19) HIVES Past Medical History Medical History Narcolepsy hyperparathyroidism, hypertension, hyperlipidemia, fibromyalgia, status post parathyroidectomy Surgical History Status post parathyroidectomy. 3 days ago Family History Family history reviewed, noncontributory Social History * Smoker: former Smoker Alcohol: Denies Drugs: denies A-FIB/CHADSVASC A-FIB History Current/History of A-Fib/PAF?: No Review of Systems Constitutional: Reports: Other (. Perioral numbness coming in wrist and the face); Denies: Chills, Fever, Malaise, Night Sweats, Weakness, Fatigue, Weight Loss, Lethargy Eyes: Denies: Pain, Vision change, Conjunctivae inflammation, Eyelid inflammation, Redness, Other ENT: Denies: Head Aches, Ear Pain, Dysphagia, Sinus Congestion, Post Nasal Drip, Sore Throat, Epistaxis, Other Symptoms Skin: Denies: Rash, Lesions, Jaundice, Bruising, Itching, Dry, Breakdown, Nail Changes, Other Pulmonary: Denies: Dyspnea, Cough, Pleuritic Chest Pain, Other Symptoms Cardiovascular: Reports: Palpitations; Denies: Chest Pain, Orthopnea, Paroxysmal Noc. Dyspnea, Edema, Lt Headedness, Other Symptoms Gastrointestinal: Denies: Nausea, Vomiting, Abdominal Pain, Diarrhea, Constipation, Melena, Hematochezia, Other Symptoms Genitourinary: Denies: Dysuria, Frequency, Incontinence, Hematuria, Retention, Other Symptoms Hematologic: Denies: Bruising, Bleeding Excessively, Petecchia, Purpura, Enlarged Lymph Nodes, Other Hematologic Endocrine: Denies: Polydipsia, Polyphagia, Polyuria, Heat Intolerance, Cold Intolerance, Other Endocrine Sx Musculoskeletal: Denies: Neck Pain, Back Pain, Shoulder Pain, Arm Pain, Hand Pain, Leg Pain, Foot Pain, Joint Pain, Muscle Pain, Spasms, Other Symptoms Neurological: Denies: Weakness, Numbness, Incoordination, Change in speech, Confusion, Seizures, Other Symptoms Psych: Denies: Mood Normal, Anxiety, Depression, Memory Issues, Thoughts of Self Harm, Anger, Thoughts of Harming Other, Other Psych Physical Examination General Exam: Positive: Alert, Cooperative Eye Exam: Positive: PERRLA, Conjunctiva & lids normal ENT Exam: Positive: Atraumatic, Mucous membr. moist/pink Neck Exam: Positive: Supple Chest Exam: Positive: Clear to auscultation, Normal air movement Heart Exam: Positive: Tachycardic, Irregular Rhythm Abdomen Exam: Positive: Normal bowel sounds, Soft Extremity Exam: Positive: Normal pulses Skin Exam: Positive: Nl turgor and temperature Neuro Exam: Positive: Strength at 5/5 X4 ext, Cranial Nerves 3-12 NL Psych Exam: Positive: Mood NL, Oriented x 3 Vital Signs Vital Signs Date Time Temp Pulse Resp B/P (MAP) Pulse Ox O2 Delivery O2 Flow Rate FiO2 04/17/20 22:46 163 04/17/20 22:45 164/83 (110) 04/17/20 21:15 96 04/17/20 19:48 Room Air 95 04/17/20 18:51 98.1 16 Laboratory Data Labs 24H Laboratory Tests 2 04/17/20 19:09: Immature Granulocyte % (Auto) 0.3, Neutrophils (%) (Auto) 63.6, Lymphocytes (%) (Auto) 25.3, Monocytes (%) (Auto) 6.8H, Eosinophils (%) (Auto) 3.7H, Basophils (%) (Auto) 0.3, Neutrophils # (Auto) 8.0, Lymphocytes # (Auto) 3.2, Monocytes # (Auto) 0.9H, Eosinophils # (Auto) 0.5, Basophils # (Auto) 0.0, Nucleated Red Blood Cells % (auto) 0.0, Anion Gap 11, Glomerular Filtration Rate 57.7, Calcium Level 7.5L, Phosphorus Level 4.6, Magnesium Level 1.6L, Total Bilirubin 0.4, Direct Bilirubin 0.1, Aspartate Amino Transf (AST/SGOT) 35, Alanine Aminotransferase (ALT/SGPT) 21, Alkaline Phosphatase 67, Total Creatine Kinase 282H, Creatine Kinase MB 1.5, Creatine Kinase MB Relative Index 0.53, Troponin I < 0.02, Total Protein 7.2, Albumin 3.5, Albumin/Globulin Ratio 0.9L, Lipase 61L, Thyroid Stimulating Hormone (TSH) 2.430, Free Thyroxine 1.32 CBC/BMP Laboratory Tests 04/17/20 19:09 Problems (1) Atrial fibrillation with RVR Status: Acute Problem Text: 64 years old white female with past medical history of narcolepsy, hyperparathyroidism, hypertension, hyperlipidemia, fibromyalgia was diagnosed with A. fib with RVR 08/27/2019 and also had echocardiogram done that time which shows normal left ventricular size and wall thickness with low normal global left ventricular systolic function and EF was 55-60%. Patient was treated and her heart rate was controlled with beta blockers and she also was sent home on anticoagulation with apaxibin. Patient is currently taking Coreg for rate control and Apaxiban for anticoagulation at the present time. Patient had a parathyroidectomy done 3 days ago at [facility] and came with the chief complaints of perioral numbness, buzzing and humming of the wrist and her face and was found to be in A. fib with RVR in the emergency room. Patient was also found to have slightly low calcium levels and she was given beta blockers, amiodarone and digoxin as per Dr. Richards's recommendation. For hypocalcemia She was also given 1 g of the IV calcium in emergency room Dr. Richards was called by Dr yoon case was discussed with him and his the recommendation was carried out. Patient heart rate is slightly improved. She does not offer any complaints of chest pain or shortness of breath at the present time. Admit patient to PCU with monitor car operator Patient has received metoprolol 5 mg IV 3, amiodarone 150 mg 2 and digoxin 0.5 mg 1 Will continue her home dose of Coreg and amiodarone to control her heart rate Will also continue patient's Apaxiban as per orders Repeat echocardiogram Monitor electrolytes, especially calcium and magnesium Magnesium has been supplemented with 2 g of IV mag sulfate 1 Repeat levels in a.m. Further, as per cardiology recommendations (2) Hypomagnesemia Status: Acute Problem Text: Magnesium sulfate 1 mg IV 2, has been ordered Check levels in a.m. (3) Hypocalcemia Status: Acute Problem Text: Calcium gluconate 1000 mg IV 1 given in ED Will request calcium levels and ionized calcium levels in a.m. (4) S/P parathyroidectomy Status: Acute Problem Text: Status post parathyroidectomy. 3 days ago Plan / VTE VTE Prophylaxis Ordered?: Yes CARRINGTON CARROLL MD Apr 17, 2020 23:45
[2020-04-18 00:05] VITALS: BP 164/90
--- NOTE | 2020-04-18 00:22 | REP ---
REASON: Chest pain. COMPARISON: 08/27/2019 The technique utilized in obtaining the radiograph has magnified the cardiac silhouette and accentuated the interstitial markings. Since the last examination, there has been previous median sternotomy. The heart is not enlarged. The lung genao are clear. The pleural angles are sharp. There is no change in the osseous structures. IMPRESSION: No acute cardiopulmonary disease. Electronically Signed by Raymond Cary DO 04/18/2020 08:08 A
[2020-04-18] MEDS: MAG SULF 1GM/100ML (MAG RUN) 1 GM in IV 1 EA IV SCH ×2 (01:01→02:04)
[2020-04-18] MEDS: LOSARTAN 25 MG TAB PO SCH ×3 (01:02→21:00)
[2020-04-18] MEDS: APIXABAN 5 MG TAB (ELIQUIS) PO SCH ×3 (01:02→20:59)
[2020-04-18] MEDS ORDERED: SLF 3 ML SYR IV PRN (01:30)
[2020-04-18] MEDS: AMITRIPTYLINE 50 MG TAB PO SCH ×2 (03:10→20:59)
[2020-04-18 04:00] VITALS: BP 180/80
[2020-04-18 04:29] LABS: HEMATOCRIT 35.8 % (36.0-47.0); HEMOGLOBIN 11.9 g/dl (12.0-15.5); MEAN CORPUSCULAR HEMOGLOBIN 29.5 pg (27.0-33.0); MEAN CORPUSCULAR HGB CONC 33.2 g/dl (32.0-36.5); MEAN CORPUSCULAR VOLUME 88.6 fl (80.0-96.0); PLATELET COUNT, AUTOMATED 250 10^3/uL (150-450); RED BLOOD COUNT 4.04 10^6/uL (4.00-5.40); WHITE BLOOD COUNT 11.8 10^3/uL (4.0-10.0)
[2020-04-18 04:47] LABS: ALBUMIN 3.2 GM/DL (3.2-5.2); BILIRUBIN,TOTAL 0.6 MG/DL (0.2-1.0); CREATININE FOR GFR 0.99 MG/DL (0.55-1.30); GLOMERULAR FILTRATION RATE 59.7 (>45); MAGNESIUM LEVEL 2.3 MG/DL (1.8-2.4); POTASSIUM SERUM 3.5 MEQ/L (3.5-5.1); TOTAL PROTEIN 6.6 GM/DL (6.4-8.2)
[2020-04-18] MEDS: SLF 3 ML SYR IV SCH ×3 (04:56→21:04)
[2020-04-18 08:00] VITALS: BP 156/72
[2020-04-18] MEDS: VITAMIN B COMPLEX/VIT C CAP PO SCH (08:49)
[2020-04-18] MEDS: METOPROLOL TART 50 MG TAB PO SCH ×2 (09:00→20:59)
[2020-04-18] MEDS ORDERED: CARVedilol 12.5 MG TAB PO SCH (09:00)
[2020-04-18] MEDS ORDERED: AMIODARONE 200 MG TAB (PACERONE) PO SCH (09:00)
[2020-04-18] MEDS ORDERED: HEPARIN SOD (PORCINE) 5000UNITS/ML VIAL (J1644 PER 1000UNITS) SC SCH (09:00)
[2020-04-18] MEDS: FLECAINIDE 50MG TABLET PO SCH ×2 (09:00→21:04)
--- NOTE | 2020-04-18 10:39 | IPNPDOC ---
Text Note Date of Service The patient was seen on 04/18/20. NOTE Subjective: Patient seen and examined at bedside. No new medical complaints. States her perioral parasthesias have essentially resolved. Denies chest pain, shortness of breath, abdominal pain, headaches, changes in vision. Objective: General: NAD, sitting comfortably in chair HEENT: NC/AT, EOMI, PERRl, sternal surgical site appears to be well healing Lungs: CTA B/L Heart: +S1S2, RRR Abd: soft, NT, +BS, obese Ext: trace edema Neuro: no gross focal deficits Psych: AAOx3 A/P: 64 yo female with PMHx hyperparathyroidism - POD#4 parathyroidectomy at [facility] - surgeons Dr. Amber Lam and Dr. Mancuso, HTN, HLD, fibromyalgia, narcolepsy, presents for perioral parasthesia, buzzing and humming noise and vibration feeling to her face, and palpitations. Found to be in afib/RVR and hypocalcemic. #hypocalcemia - s/p parathyroidectomy - nephrology c/s pending - assistance appreciated #Afib/RVR - d/w cardiology - Dr. Richards - recommendations to stop amio, start flecainide 50 BID, stop carvedilol, start metoprolol tartrate 50 BID - currently sinus kala with no symptoms - recently treated for afib/RVR - echo - 08/27/19 - LVEF 55-60% #HTN - Cozaar #HLD #fibromyalgia - Elavil #hypomagnesemia - repleted #DVT prophylaxis - on eliquis as above for afib VS,Fishbone, I+O VS, Fishbone, I+O Laboratory Tests 04/17/20 19:09 04/18/20 03:51 Vital Signs Date Time Temp Pulse Resp B/P (MAP) Pulse Ox O2 Delivery O2 Flow Rate FiO2 04/18/20 08:49 156/72 04/18/20 08:00 96.5 65 16 93 Room Air 04/17/20 19:48 95 I&O- Last 24 Hours up to 6 AM 04/18/20 06:00 Intake Total 100 ml Output Total 1300 ml Balance -1200 ml VENICE GREWAL MD Apr 18, 2020 10:39
[2020-04-18] MEDS ORDERED: POTASSIUM CHLORIDE 10 MEQ SR TABLET PO ONE (11:00)
[2020-04-18 12:00] VITALS: BP 140/66
[2020-04-18] MEDS ORDERED: CALCIUM CHLORIDE 10% 1 GM in D5W 100 ML IV ONE (13:00)
[2020-04-18] MEDS ORDERED: CALCIUM GLUCONATE 1,000 MG in D5W MINI-BAG PLUS 100 ML IV ONE (14:00)
[2020-04-18 16:00] VITALS: BP 163/70
[2020-04-18] MEDS: CALCIUM/VITAMIN D 500 MG TAB PO SCH ×2 (16:32→20:59)
[2020-04-18 20:00] VITALS: BP 175/82
--- NOTE | 2020-04-18 21:43 | CR ---
DATE OF CONSULTATION: 04/18/2020 CONSULTING PHYSICIAN: Dr. Johnson REASON FOR CONSULTATION: Hypokalemia. HISTORY OF THE PRESENT ILLNESS: Ms. Saenz is a 64-year-old female with a pertinent past medical history of a recent parathyroidectomy on 04/14/2020 at [facility], who presented to our emergency room (ER) yesterday evening for a buzzing sensation in her wrist, hand and mouth. Patient notes that initially she had the numbness and buzzing sensation in her hands and wrists that progressively got worse to around her lips and made her worried, so she came to the ER for further evaluation. She denies having any other symptoms such as fever or chills, night sweats, shortness of breath, chest pain, nausea, vomiting, diarrhea, palpitations, or irregular heartbeat. She does have a history of atrial fibrillation, but is currently controlled. In the ER, she was found to have atrial fibrillation with rapid ventricular response (RVR) with a ventricular rate of 160 beats per minute. She responded appropriately to the amiodarone, atenolol, digoxin, and three 5 mg doses of Lopressor IV. At the time of my exam, she denies any symptoms. Her buzzing and numbness sensation has resolved. She does not have any palpitations or shortness of breath. She denies having any symptoms at the current time and just wants to have her calcium levels to be back to normal so she can go back home. PAST MEDICAL HISTORY: 1. Hyperparathyroidism. 2. Narcolepsy. 3. Hypertension. 4. Hyperlipidemia. 5. Fibromyalgia. 6. History of atrial fibrillation. SURGICAL HISTORY: 1. Partial hysterectomy. 2. Cholecystectomy. 3. Two sections. 4. Parathyroidectomy on 04/14/2020 at [facility] via the chest, possible ectopic, questionable. FAMILY HISTORY: Denies any significant history in her father and admits congestive heart failure mother. SOCIAL HISTORY: Resides in [place], [place]. 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 She quit smoking 40 years ago but used to smoke for 15 pack years. She is a social drinker but denies any illicit or IV drug use. She currently drinks two cups of coffee a day. ALLERGIES: SULFONAMIDE; she has pruritus. REVIEW OF SYSTEMS: Constitutional: Denies recent weight changes, fever, chills, fatigue. HEENT: Denies any vision, hearing changes, headache, pharyngitis, lymphadenopathy. Admits to numbing sensation around the lips but no slurring of the speech or drooling. Cardiovascular: Denies chest pain, palpitations, syncope. Endorses some itching at the surgical site on top of her chest wall. Respiratory: Denies any shortness of breath, cough, pleuritic chest pain. No trouble breathing. Gastrointestinal: Denies any abdominal pain, distention, nausea, vomiting, constipation or diarrhea. Genitourinary: Denies any dysuria. Musculoskeletal: Denies any muscle weakness, joint swelling. Endorses tingling sensation in her wrist, hands, and her perioral region. Neurologic: Denies any focal deficits, seizure, headaches or focal neurologic deficits. Endocrine: Denies any polydipsia, polyuria. Hematologic: Denies any lymphadenopathy or bruising with the exception of the one on her right wrist, as well as her postsurgical changes on her chest from recent surgery. HOME MEDICATIONS: - amitriptyline - apixaban - vitamin B - calcitriol - calcium citrate - carvedilol - losartan - Co Q-10 PHYSICAL EXAMINATION: Vital signs: Temperature 96.6, pulse 66, respirations 18, blood pressure 140/66 (90), pulse oximetry (ox) 96% on room air. Intake total 760 mL, output total 1300 mL with a balance of negative 540 mL. Weight this morning is 106.7 kg. General: This is a very pleasant 64-year-old female who does not appear in acute distress, appropriately answering questions, sitting up in the chair, no accessory muscle use. HEENT: Atraumatic, normocephalic. Pupils equal, round, and reactive. Moist mucous membranes. No facial twitching/Chvostek sign. Cardiovascular: Surprisingly, regularly regular rate controlled, 60 beats per minute. No audible murmurs or rubs. Distant heart sounds. Lungs: Clear to auscultation bilaterally. No audible wheezing, rhonchi or rales. Chest: Post-surgical chest wound appreciated of the mid sternum, healing appropriately. No erythema. No tenderness to palpation. No discharge noted. Abdomen: Obese abdomen. Positive bowel sounds in all four quadrants. No bruising. No distention. No tenderness to palpation. Musculoskeletal: No lower extremity edema. No calf tenderness. No involuntary muscle twitches noted. Did endorse positive Trousseau sign, but did not reproduce during exam. Neurologic: No obvious focal deficits. Alert and oriented times three, appropriately answering questions. Has a baseline of fibromyalgia. Psychiatric: Appropriate. Alert and oriented times three. LABORATORY: Hematology: WBC 11.8, hemoglobin 11.9, hematocrit 35.8, platelets 250. Chemistry: Sodium 142, potassium 3.5, chloride 105, carbon dioxide 28, anion gap 9, BUN 14, creatinine 0.99, fasting glucose 117, calcium 7.0, ionized calcium 3.5, phosphorus 5.2, magnesium 2.3, total bilirubin 0.6, AST 33, ALT 22, alkaline phosphatase 59, total protein 6.6, albumin 3.2. IMAGING: Chest x-ray from 04/17/2020 shows no acute cardiopulmonary diseases. IMPRESSION AND PLAN: This is a 64-year-old female with a pertinent past medical history of hyperparathyroidism, status post ectopic parathyroidectomy at [facility] on 04/14/2020 who was admitted for perioral paresthesia, buzzing and humming noises on the face and hands and feet. 1. Hypocalcemia. She is status post ectopic parathyroidectomy. She does have a surgical scar appreciated on her mid sternum that is healing appropriately. It is a possible ectopic removal, according to the story I obtained. Will obtain records from [facility] to review. The surgeons were Dr. Amber Lam and Dr. Mancuso. An order has been placed to obtain the records. At the current time, she did get status post one dose of calcium gluconate in the ER. Will give another dose of calcium gluconate and will check her PTH level. We will also give her oral calcium in the form of calcium and vitamin D 1000 mg three times a day and will continue with calcitriol. We will check her PTH level as well. I do predict that it will be elevated for she just had the recent surgery and will followup. Calcium chloride could not be given on the fact that the patient only has peripheral access and that drug has to be given via the deep vein or a central line for it can cause tissue necrosis, so at the current time we will give calcium gluconate and monitor her calcium levels as well as symptoms. 2. History of chronic kidney disease, stage III. Patient has adequate oral intake. Will continue with her regular diet as per primary team. At the current time, will monitor her BMP. She does follow nephrology outpatient, so will review those records as well. 3. Atrial fibrillation with RVR. Dr. Richards has been consulted. Has recommendations of Flecainide, as well as metoprolol tartrate 50 mg twice a day. She is currently on telemetry. At the time of my exam, she is sinus rhythm. Will refer to recommendations by cardiology. 4. Hypertension. Blood pressure at the time of my exam was better at 140/66. She does have metoprolol and Cozaar on board, so will monitor her blood pressure. I predict it will get better with this current intervention. 5. Hypomagnesemia. Initially her magnesium was low at 1.6, but she did respond appropriately to the magnesium sulfate and this morning it was better at 2.3, so we will monitor. Thank you for this consultation. Dr. Parker and I will follow along the patient while she is admitted. KARL
[2020-04-19] VITALS: BP 146/68
[2020-04-19 04:00] VITALS: BP 160/72
[2020-04-19 04:22] LABS: HEMATOCRIT 35.8 % (36.0-47.0); HEMOGLOBIN 11.8 g/dl (12.0-15.5); PLATELET COUNT, AUTOMATED 235 10^3/uL (150-450); RED BLOOD COUNT 4.07 10^6/uL (4.00-5.40); WHITE BLOOD COUNT 10.8 10^3/uL (4.0-10.0)
[2020-04-19 04:47] LABS: BILIRUBIN,TOTAL 0.4 MG/DL (0.2-1.0); CALCIUM LEVEL 7.8 MG/DL (8.8-10.2); CREATININE FOR GFR 0.99 MG/DL (0.55-1.30); GLOMERULAR FILTRATION RATE 59.7 (>45); MAGNESIUM LEVEL 1.7 MG/DL (1.8-2.4); POTASSIUM SERUM 4.2 MEQ/L (3.5-5.1); TOTAL PROTEIN 6.1 GM/DL (6.4-8.2)
[2020-04-19] MEDS: SLF 3 ML SYR IV SCH (06:15)
[2020-04-19] MEDS ORDERED: MAG SULF 1GM/100ML (MAG RUN) 1 GM in IV 1 EA IV ONE (07:15)
--- NOTE | 2020-04-19 07:45 | ECGEPIP ---
[facility] Test Date: 2020-04-18 Pat Name: RAMON CAMERON Department: Room: [place] [address] Gender: Female Investigative Agent: GAIL : [id number] Requested By: VENICE Pennington Order Number: [id number] Reading MD: Andreas Richards Measurements Intervals [place] Rate: 66 P: 59 NV: 156 QRS: 37 QRSD: 102 T: 72 QT: 433 QTc: 455 Interpretive Statements Normal sinus rhythm Somewhat low voltages with slow precordial R wave progression and minuscule inferoapical Q waves; body habitus versus pulmonary disease Nonspecific ST/T wave abnormalities considerably improved with conversion from atrial fibrillation 04/17/20 Electronically Signed on 04-19-2020 7:44:59 EDT by Andreas Richards
[2020-04-19 08:00] VITALS: BP 152/78
[2020-04-19] MEDS: CALCIUM/VITAMIN D 500 MG TAB PO SCH (08:42)
[2020-04-19 08:43] VITALS: BP 152/78
[2020-04-19] MEDS: METOPROLOL TART 50 MG TAB PO SCH (08:43)
[2020-04-19] MEDS: FLECAINIDE 50MG TABLET PO SCH (08:43)
[2020-04-19] MEDS: VITAMIN B COMPLEX/VIT C CAP PO SCH (08:43)
[2020-04-19] MEDS: LOSARTAN 25 MG TAB PO SCH (08:43)
[2020-04-19] MEDS: APIXABAN 5 MG TAB (ELIQUIS) PO SCH (08:43)
[2020-04-19] MEDS ORDERED: LOPR1TAB6 PO (10:48)
[2020-04-19] MEDS ORDERED: CALCD50TA PO (10:48)
[2020-04-19] MEDS ORDERED: FLEC25TA PO (10:48)
[2020-04-19 12:00] VITALS: BP 148/74
--- NOTE | 2020-04-19 13:16 | DS.PDOC ---
Discharge Summary General Date of Admission Apr 17, 2020 at 23:26 Date of Discharge 04/19/20 Specialist/Consultants Involve cardiology, dr singh nephrology Discharge Summary PROCEDURES PERFORMED DURING STAY: [None]. ADMITTING DIAGNOSES: 1. symptomatic hypocalcemia 2. afib/rvr DISCHARGE DIAGNOSES: HTN HLD Fibromyalgia COMPLICATIONS/CHIEF COMPLAINT: Afib With Rvr, Hypocalcemia. HOSPITAL COURSE: 64 yo female with PMHx hyperparathyroidism- s/p recent parathyroidectomy at [facility] - surgeons Dr. Amber Lam and Dr. Mancuso, HTN, HLD, fibromyalgia, narcolepsy, presents for perioral parasthesia, buzzing and humming noise and vibration feeling to her face, and palpitations. Found to be in afib/RVR and hypocalcemic. Converted to NSR with medical therapy on consultation with cardiology. D/w cardiology who provided recs for outpatient medication and follow up. Nephrology consulted for peristent hypocalcemia, which also improved significantly. Symptoms resolved, and hospital stay otherwise unremarkable. Discharged home with outpatient follow up. DISCHARGE MEDICATIONS: Please see below. ALLERGIES: Please see below. PHYSICAL EXAMINATION ON DISCHARGE: VITAL SIGNS: Please see below. General: NAD, sitting comfortably in chair HEENT: NC/AT, EOMI, PERRl, sternal surgical site appears to be well healing Lungs: CTA B/L Heart: +S1S2, RRR Abd: soft, NT, +BS, obese Ext: trace edema Neuro: no gross focal deficits Psych: AAOx3 LABORATORY DATA: Please see below. ACTIVITY: [As tolerated]. DISPOSITION: 01 Home, Self-Care. DISCHARGE INSTRUCTIONS: 1. Follow up with PCP in 3-5 days 2. Follow up cardiology within on week 3. Follow up nephrology as scheduled in two days. DISCHARGE CONDITION: [Stable]. TIME SPENT ON DISCHARGE: 35 minutes. Vital Signs/I&Os Vital Signs Date Time Temp Pulse Resp B/P (MAP) Pulse Ox O2 Delivery O2 Flow Rate FiO2 04/19/20 12:00 97.9 62 19 148/74 (98) 94 Room Air 04/17/20 19:48 95 I&O- Last 24 Hours up to 6 AM 04/19/20 06:00 Intake Total 1710 ml Output Total 2500 ml Balance -790 ml Laboratory Data Labs 24H Laboratory Tests 2 04/19/20 04:07: Nucleated Red Blood Cells % (auto) 0.0, Anion Gap 7L, Glomerular Filtration Rate 59.7, Calcium Level 7.8L, Magnesium Level 1.7L, Total Bilirubin 0.4, Aspartate Amino Transf (AST/SGOT) 22, Alanine Aminotransferase (ALT/SGPT) 22, Alkaline Phosphatase 58, Total Protein 6.1L, Albumin 3.0L, Albumin/Globulin Ratio 1.0L 04/19/20 08:21: Whole Blood Ionized Calcium 3.9L CBC/BMP Laboratory Tests 04/19/20 04:07 Discharge Medications Scheduled Amitriptyline HCl (Amitriptyline HCl) 50 Mg Tab, 50 MG PO QHS, (Reported) Apixaban (Eliquis) 5 Mg Tablet, 5 MG PO BID, (Reported) B-Complex with Vitamin C (Vitamin B Complex-Vitamin C) 1 Each Tablet, 1 EACH PO DAILY, (Reported) Calcium/Vitamin D (Calcium 500-Vit D3 200 Tablet) 1 Each Tablet, 1,000 MG PO TID Flecainide Acetate (Flecainide Acetate) 50 Mg Tablet, 50 MG PO BID Losartan Potassium (Losartan Potassium) 25 Mg Tablet, 25 MG PO BID, (Reported) Metoprolol Tartrate (Lopressor) 50 Mg Tablet, 50 MG PO BID Ubidecarenone (Co Q-10) 100 Mg Capsule, 100 MG PO QHS, (Reported) Allergies Coded Allergies: Sulfa (Sulfonamide Antibiotics) (Verified Allergy, Unknown, 08/27/19) VENICE GUTIERREZ MD Apr 19, 2020 13:16
--- NOTE | 2020-04-20 08:50 | ECHO ---
DATE OF PROCEDURE 04/18/2020 AGE: 64. GENDER: Female. HEIGHT: 63 inches. WEIGHT: 235 pounds. BODY SURFACE AREA: 2.07 sq m. INPATIENT PROGRESSIVE CARE UNIT (PCU): Room 3219. REFERRING PHYSICIAN: Gerardo Newell MD. INDICATION: Abnormal electrocardiogram (EKG). MEASUREMENTS: 2D measurements: RV - 4.0 cm LV - 4.4 cm Septum 1.1 cm Posterior wall 1.1 cm Aortic root 2.9 cm LA - 3.7 cm LVEF 65% Doppler measurements: AV - 2.2 m/s LVOT - 0.96 m/s LVOT diameter 2.1 cm Mean AV systolic gradient 10 Dimensionless index 0.5 MV - E 125 A 105 EA ratio 1.2 Early mitral deceleration time 292 ms E prime medial 5.7 A prime medial 6.1 E prime lateral 8.9 Average E/E prime ratio 17/PCWP 22 mmHg PV - 0.8 m/s Pulmonary artery acceleration time 100 ms RVSP 47-52 mmHg IVC - 2.0 cm COMMENTS: Normal sinus rhythm without intraventricular conduction disturbance. Occasional isolated premature ventricular contraction (PVC). Somewhat technically challenging study in light of the patient's body habitus but diagnostically useful information was still obtained. M-mode and two-dimensional echocardiography was performed with pulsed, continuous wave, color flow, and tissue Doppler studies. Normal left ventricular size, wall thickness, and wall motion. Left atrial size upper limits of normal with grade 2 left ventricle (LV) diastolic dysfunction and mildly elevated estimated mean left atrial pressure. At least mildly dilated right heart chambers with normal wall motion and Doppler evidence of at least moderate pulmonary hypertension. Inferior vena cava (IVC) size upper limits of normal with reduced respiratory collapse in keeping with a slightly elevated estimated central venous pressure. Normal aortic dimensions. Mild aortic valvular sclerosis without functional abnormality. Normal-appearing mitral valvular apparatus with very mild insufficiency. Normal-appearing tricuspid valve with mild insufficiency. No apparent intracardiac mass. Minuscule posterior pericardial effusion.
--- NOTE | 2020-04-20 12:51 | IPN ---
DATE: 04/19/2020 Ms. Saenz was seen and examined this morning during bedside rounds. She is in good spirits today. She has no complaints. Denies any fever, chills, abdominal pain, nausea, or vomiting. She is tolerating her diet very well. She has noticed that her tingling sensation and a buzzing sensation around her wrist and hands have resolved completely. She has no complaints today and would like to go home. No overnight events reported by nursing. PHYSICAL EXAMINATION: Temperature 97.5, pulse 72, respiration 19, blood pressure 152/78, (102), pulse ox 94% on room air. Intake total 1510, output total 3100 mL for a balance of -1590 mL. Weight this morning was 108 kg. This is a very pleasant 64-year-old female who does not appear in any acute distress sitting up in the chair, appropriately answering questions. HEENT: Atraumatic, normocephalic. Trachea is midline. No thyromegaly appreciated. No jugular venous distention (JVD) noted. HEART: Regular rate and rhythm. No audible murmurs, rubs or gallops. LUNGS: Clear to auscultation bilaterally. No audible wheezing, rhonchi or rales. CHEST: Mid sternal surgical incision healing appropriately. No erythema. No discharge. No tenderness to palpation. MUSCULOSKELETAL: No calf tenderness. No lower extremity edema. NEUROLOGIC: No obvious focal deficits. Alert and oriented times three. No facial twitching or Chvostek sign. Does have a slight fibromyalgia. PSYCHIATRIC: Appropriate. LABORATORIES: Hematology: WBC 10.8, hemoglobin 11.8, hematocrit 35.8, platelet 235. Chemistries: Sodium 140, potassium 4.2, chloride 105, carbon dioxide 28, ion gap 7, BUN 15, creatinine 0.99, fasting glucose 114, calcium 7.8, ionized calcium 3.9, magnesium 1.7. No new imaging. ASSESSMENT/PLAN: 1. Hypocalcemia status post ectopic parathyroidectomy from the mid sternum. Her hypocalcemia is improving. Today her ionized calcium this morning is 3.9. She responded appropriately to the calcium gluconate. She is status post two doses until now and is currently on 1000 mg three times a day of Os-Zeyad D. We will continue with this 1 gram three times a day upon discharge. We will actually stop her Calcitriol due to the fact that her PTH is suppressed at less than 6.3. The patient is actually responding appropriately to the oral calcium that she can be discharged with this and follow up with nephrology as scheduled this Friday as well as next week to make sure her calcium level continues to improve. 2. History of chronic kidney disease stage III. Adequate oral intake. BUN and creatinine is stable. 3. Atrial fibrillation with rapid ventricular rate (RVR). Currently in sinus rhythm. Follow recommendations per Dr. Richards where she is currently on metoprolol and flecainide as well as apixaban. 4. Blood pressure is adequate controlled. It was 152/78 this morning. Will continue with her metoprolol and Cozaar and when she follows up with nephrology, outpatient can consider any additional medications needed to bring her blood pressure down. 5. Hypomagnesemia: Magnesium this morning was 1.7. She is status post one run this morning. DISPOSITION: From a nephrology standpoint, she can be discharged. We recommend that she be discharged on the 1 gram three times a day of Os-Zeyad D, followup with nephrology on Friday as scheduled as well as next week to make sure calcium level is improving and discontinue her home calcitriol 0.25 mg to help her PTH levels improve.
[2020-04-21] MEDS ORDERED: CALCITRIOL 0.25 MCG CAP (S0169) PO SCH (09:00)
== END 2020-04-19 12:15 | disposition home or self-care (01) | DRG 641 ==
LOC: M ED 18:50 → M ED INP 23:26 → ENRESERV 23:56 → M PCU 04-18 00:40
PROVIDERS: ADMIT Internal Medicine; ATTEND Internal Medicine
DX: E83.51 Hypocalcemia (principal); G47.419 Narcolepsy without cataplexy; E89.2 Postprocedural hypoparathyroidism; I12.9 Hypertensive chronic kidney disease with stage 1 through stage 4 chronic kidney disease, or unspecified chronic kidney disease; E78.5 Hyperlipidemia, unspecified; M79.7 Fibromyalgia; N18.3 Chronic kidney disease, stage 3 (moderate); E83.42 Hypomagnesemia; I48.91 Unspecified atrial fibrillation; E87.6 Hypokalemia; Z79.01 Long term (current) use of anticoagulants; Z79.899 Other long term (current) drug therapy; Z88.2 Allergy status to sulfonamides

== ENCOUNTER → 2020-06-29 | Outpatient (CLI) | payer MEDICARE ==
[~2020-06-29] MED LIST changes: +B-CO1TAB12 PO; +CALC1CAP31 PO; +CALC1TAB9 PO; +CALCD50TA PO; +CARV12.5 PO; +FLEC25TA PO; +LOPR1TAB6 PO; +LOSA25TA14 PO
--- NOTE | 2020-07-17 16:26 | REPMRS ---
Patient History The patient states she had a clinical breast exam in 06/2020. Patient is postmenopausal. No known family history of cancer. No Hormone Replacement Therapy Digital Woman Screen Mammo: June 29, 2020 - Exam #: [id number] Bilateral CC and MLO view(s) were taken. Technologist: Kelsey Kahn, Technologist Prior study comparison: January 06, 2019, bilateral digital woman screen mammo performed at [facility]. January 05, 2018, digital woman screen mammo performed at [facility]. January 03, 2017, digital woman screen mammo performed at [facility]. FINDINGS: The breast tissue is almost entirely fat. The Volpara volumetric breast density category is: A. There has been no change in the appearance of the mammogram from the prior studies. There is no interval development of dominant mass, architectural distortion, or grouped microcalcification typical of malignancy. 3-D tomosynthesis shows no additional findings. Assessment: BI-RADS/ACR category 1 mammogram. Negative Mammogram. Recommendation Routine screening mammogram of both breasts in 1 year (for women over age 40). This patient's Lifetime Breast Cancer RIsk is estimated at 5.0 %. This mammogram was interpreted with the aid of an FDA-approved computer-aided dectection system. Electronically Signed By: Joel Roth MD 07/17/20 [id number]
== END ==
LOC: M WHC 14:08
PROVIDERS: ATTEND Nurse Practitioner Family
DX: Z01.419 Encounter for gynecological examination (general) (routine) without abnormal findings (principal); Z12.31 Encounter for screening mammogram for malignant neoplasm of breast; Z78.0 Asymptomatic menopausal state
CPT/HCPCS: 77063; 77067; G0101

== ENCOUNTER → 2020-11-04 | Outpatient (CLI) | payer MEDICARE ==
--- NOTE | 2020-11-04 09:25 | REP ---
INDICATION: PAIN COMPARISON: 04/12/2010 TECHNIQUE: AP, lateral, bilateral oblique and sunrise views of the left knee. FINDINGS: Mild/early moderate tricompartmental osteoarthritic degenerative changes include cortical irregularity, early scattered spurring primarily noted at the medial femoral condyle, medial tibial spine and along the patellar margin. Lateral and sunrise views also demonstrate periarticular sclerosis and joint space narrowing at the patellofemoral joint with suggestion for small suprapatellar effusion. No obvious acute or healed fracture identified. IMPRESSION: Mild/early moderate tricompartmental osteoarthritic degenerative changes. Possible small suprapatellar effusion. No evidence for acute or healed fracture <Electronically signed by Agapito Segura > 11/04/20 [id number]
== END ==
LOC: M WUC 08:26
PROVIDERS: ATTEND Nurse Practitioner Family
DX: M17.12 Unilateral primary osteoarthritis, left knee (principal)

== ENCOUNTER → 2021-05-30 | Outpatient (CLI) | payer MEDICARE ==
--- NOTE | 2021-05-30 16:43 | REP ---
INDICATION: CKD III. COMPARISON: Comparison CT study February 27, 2019.. TECHNIQUE: Urinary tract sonography. FINDINGS: Scanning at the level of the urinary bladder shows no abnormality. Emptying ureteral jets are confirmed on color Doppler interrogation of the bladder lumen bilaterally. Renal cortical echogenicity pattern is normal bilaterally and contours are smooth. There is no evidence of hydronephrosis, cyst, mass, or calculus in either kidney. The right kidney measures 10.8 x 4.5 x 4.0 cm. Left renal dimensions are 10.7 x 4.6 x 4.7 cm. IMPRESSION: Normal urinary tract sonography. <Electronically signed by Joel Roth > 05/30/21 [id number]
== END ==
LOC: M RAD 15:46
PROVIDERS: ATTEND Nurse Practitioner Family
DX: N18.31 Chronic kidney disease, stage 3a (principal); I12.9 Hypertensive chronic kidney disease with stage 1 through stage 4 chronic kidney disease, or unspecified chronic kidney disease

== ENCOUNTER → 2021-06-20 | Outpatient (REF) | payer MEDICARE | LOC: M LAB REF 13:10 | PROVIDERS: ATTEND Nurse Practitioner Family | DX: E83.42 Hypomagnesemia (principal) ==

== ENCOUNTER → 2021-07-03 | Outpatient (CLI) | payer MEDICARE ==
--- NOTE | 2021-07-03 13:18 | REP ---
INDICATION: SCR MAMMO. COMPARISON: Multiple TECHNIQUE: Digital screening mammography was carried out bilaterally in the CC and MLO projections and compared to the prior exams. Both 2D and 3D modalities were utilized. By history, the patient has no complaints of a palpable breast abnormality or other significant breast complaints. FINDINGS: The breasts are unchanged in size and shape. There are no carla soft tissue densities or spiculated masses. There is no internal architectural distortion. Stable benign calcifications are again seen bilaterally. There is no skin thickening or nipple retraction. The Volpara volumetric breast density pattern is b. IMPRESSION: BIRADS/ACR category 2 benign findings. There is no evidence of malignant alteration of the breasts. This patient's Tyrer-Cuzick lifetime breast cancer risk assessment score is 4.7%. This mammogram was interpreted with the aid of an FDA-approved computer-aided detection system. The patient states she had a clinical breast exam in June 2021. The patient letter being requested is M1. RECOMMENDATION: Repeat screening mammography recommended 1 year (for women over 40). <Electronically signed by Raymond Cary > 07/03/21 [id number]
--- NOTE | 2021-07-03 15:38 | DEXAMM ---
INDICATION: M85.80 LOW BONE DENSITY/POSTMENOPAUSAL/Z78.0. COMPARISON: 01/06/2019 as well as other prior exams. TECHNIQUE: Bone density was measured using dual-energy x-ray absorptiometry (DEXA). FINDINGS: AP SPINE L1-L4 BMD 1.387 g/cm2 Young Adult T-Score 1.6 Age Matched Z-Score 3.2. LT FEMUR, TOTAL BMD 0.972 g/cm2 Young Adult T-Score -0.3 Age Matched Z-Score 1.1. LT NECK BMD 0.781 g/cm2 Young Adult T-Score -1.9 Age Matched Z-Score -0.3. RT FEMUR, TOTAL BMD 0.884 g/cm2 Young Adult T-Score -1.0 Age Matched Z-Score 0.4. RT NECK BMD 0.784 g/cm2 Young Adult T-Score -1.8 Age Matched Z-Score -0.2. IMPRESSION: There is normal bone density of the spine. There is low bone density of the left hip. There is low bone density of the right hip. The density of the spine has increased 11.6% since the initial exam on 11/08/2002. The density of the spine increased 11.9% since most recent exam on 01/06/2019. The density of the left hip has decreased 8.6% since initial exam on 11/08/2002. The density of the left hip has increased 4.0% since most recent exam on 01/06/2019. The density of the right hip has decreased 4.7% since the initial exam on 11/08/2002. The density of the right hip has increased 2.3% since the most recent exam on 01/06/2019. FOLLOW-UP: Recommendation for the next bone density exam: 2 years. <Electronically signed by Terell Zarate > 07/03/21 [id number]
== END ==
LOC: M WHC 09:45
PROVIDERS: ATTEND Nurse Practitioner Women's Health
DX: Z01.419 Encounter for gynecological examination (general) (routine) without abnormal findings (principal); Z12.31 Encounter for screening mammogram for malignant neoplasm of breast; M85.80 Other specified disorders of bone density and structure, unspecified site; Z78.0 Asymptomatic menopausal state; R92.1 Mammographic calcification found on diagnostic imaging of breast
CPT/HCPCS: 77063; 77067; 77080; G0101

== ENCOUNTER → 2021-07-24 | Outpatient (REF) | payer MEDICARE | LOC: M LAB REF 11:44 | PROVIDERS: ATTEND Nurse Practitioner Family | DX: E83.42 Hypomagnesemia (principal) ==

== ENCOUNTER → 2021-08-23 | Outpatient (REF) | payer MEDICARE | LOC: M LAB REF 12:59 | PROVIDERS: ATTEND Nurse Practitioner Family | DX: E83.42 Hypomagnesemia (principal) ==

== ENCOUNTER 2021-09-15 13:28 | Emergency (ER) | payer MEDICARE ==
[~2021-09-15] VITALS: Ht 160 cm; Wt 111.4 kg
--- OUTSIDE RECORDS SUMMARY | 2021-09-15 13:35 | CCD ---
Author Author [facility] Organization [facility] Address Unknown Phone Unavailable Care Team Providers Care Manager Analysis Name Role Phone Garrett Coty Unavailable PROBLEMS Type Condition ICD9-CM Code XCQ71-PL Code Onset Dates Condition S tatus W/U Status Risk SNOMED Code Notes Problem Acquired absence of ovaries, bilateral Z90.722 A ctive confirmed 053573652 Problem Acquired absence of both cervix and uterus Z90.710 Active confirmed 420693023 Problem Unspecified hypertrophic and atrophic condition of skin 70 1.9 Active confirmed 406987977 Asymptomatic, be nign Problem Other seborrheic keratosis 702.19 Active confirmed 575552887 Benign Problem Actinic keratosis 702.0 Active confirmed 20 8430621 cryosurgery documented on the lesion documentation form Problem Menopausal disorder N95.9 Active confirmed 101113879 ALLERGIES Allergen (clinical drug ingredient) Drug/Non Drug Allergy do cumented on EMR Reaction Allergy Type Onset Date Status SULFA Hives Non Drug Allergy Active ENCOUNTERS from 1955 to 2021-07-04 Encounter Location Date Provider Diagnosis [facility] [address] [facility] [phone] [place] [address] 17 Jun, 2021 Coty Tucker Routine gynecologica l examination Z01.419 ; Breast cancer screening by mammogram Z12.31 ; Acquired absence of both cervix and uterus Z90.710 ; Acquired absence of ovaries, bilateral Z90.722 ; Acquired absence of other genital organ(s) Z90.79 ; Low bone density M85.80 and Asymptomatic postmenopausal status Z78.0 IMMUNIZATIONS No Information SOCIAL HISTORY Sex Assigned At : Social History Observation Description Sex Assigned At Unknown Education: Question Answer Notes Level of Education: High School Yazdanism: Question Answer Notes Yazdanism [employer] Alcohol Screening: Question Answer Notes Did you have a drink containing alcohol in the past year? Ye s Points 1 Interpretation Negative How often did you have six or more drinks on one occas ion in the past year? Never (0 points) How many drinks did you have on a typica l day when you were drinking in the past year? 1 or 2 (0 points) How often did you have a drink containing alcohol in t he past year? Monthly or less (1 point) BMI Care Goal Follow-Up Question Answer Notes Above Normal BMI Follow-Up Giving encouragement to exercise REASON FOR REFERRAL No Information VITAL SIGNS Weight 239.8 lbs Jun, Height 62 in Jun, BMI 43.86 kg/m2 Jun, Blood pressure systolic 142 mm Hg Jun, Blood pressure diastolic 88 mm Hg Jun, MEDICATIONS Medication SIG (Take, Route, Frequency, Duration) Notes Start Da te End Date Status Garlic 100 MG as directed Orally Act eugenie Losartan Potassium 100 MG 1 tablet Orally Once a day Not-Taking Aspir-81 81 MG 1 tablet Orally Once a day for 30 day(s) Not-Taking Biotin 5000 5 MG 1 capsule Orally 2 x a day Not-Taking Flecainide Acetate 50 MG one pill Orally bid Active Metoprolol Succinate 50 MG 1 capsule Orally Once a day Active Multivitamins 1 tab 1 Orally daily A ctive Amitriptyline HCl 50 MG 1 tablet Orally at night Active Eliquis 5 MG as directed Orally qd A ctive Turmeric Curcumin 1 1 Orally twice daily Active Fish Oil 1000 MG as directed Orally Active Calcium 600 MG =2400 dose daily Orally =2400 daily Active CoQ10 100 MG 1 Orally daily Active Calcitriol 0.25 MCG 1 capsule Orally Once a day Active PROCEDURES No Information RESULTS Component Value Reference Range WWBC DIGITAL / TYRONE BILATERAL MAMMO SCRE ENING (Ultrasound if indicated) Reviewed date:07/03/2021 13:50:03 Interpretation:Negative Performing Lab:[facility],[address]], ,[place] [address] REASON FOR VISIT ANNUAL/MAMMO MEDICAL (GENERAL) HISTORY Type Description Date Medical History fibromyalgia Medical History hypertension Medical History Hyperparathyroidy(DR. FISH) Medical History type II diabetes/diet controlled now 201 4 Medical History kidney stones 2016 Surgical History ALAYNA with BSO for endometrial polyps and fibroids,adenomyosis Dr Bender 2003 Surgical History C section 1973.,1976 Surgical History parathyroidectomy/ SURGERY ATTEMPTED DID N'T FIND PARATHYROID. 2004 Surgical History colonoscopy 2007 Surgical History EMB 2003 Surgical History eyelids 09/2014 Surgical History Cholecystectomy Surgical History Parathyroidectomy 03/2020 Goals Section No Information Health Concerns No Information MEDICAL EQUIPMENT No Information MENTAL STATUS No Information FUNCTIONAL STATUS No Information ASSESSMENTS Encounter Date Diagnosis Assessment Notes Treatment Notes Treatm ent Clinical Notes Jun, Routine gynecological examination (ICD-10 - Z01. 419) Pt to report any episodes of pmb or pelvic pain. Advise regular physical activity including weight bearing exercise most days of the week. Reviewed calcium rich foods. Jun, Breast cancer screening by mammogram (ICD-10 - Z 12.31) Reviewed screening intervals with mammography, recommend annual screening until age 75. Reviewed breast awareness, know what is normal for you so that you can detect any changes in the breasts, check breasts regularly, in a routine that you are comfortable with. Jun, Acquired absence of both cervix and uterus (ICD- 10 - Z90.710) Jun, Acquired absence of ovaries, bilateral (ICD-10 - Z90.722) Jun, Acquired absence of other genital organ(s) (ICD- 10 - Z90.79) Jun, Low bone density (ICD-10 - M85.80) Jun, Asymptomatic postmenopausal status (ICD-10 - Z78 .0) PLAN OF TREATMENT Treatment Notes Assessment Notes Clinical Notes Routine gynecological examination Pt to report any episodes of pmb or pelvic pain. Advise regular physical activity including weight bearing exercise most days of the week. Reviewed calcium rich foods. Breast cancer screening by mammogram Rev iewed screening intervals with mammography, recommend annual screening until age 75. Reviewed breast awareness, know what is normal for you so that you can detect any changes in the breasts, check breasts regularly, in a routine that you are comfortable with. Treatment Notes Test Name Order Date Dexa, Full Body 2021-07-03 Next Appt Details 1 Year Reason:CBE and mammo Provider Name:Coty Tucker, 2022-07-04 09:40:00 AM, [address] [facility], , [place], [address], Follow Up:1 YearCBE and mammo Insurance Providers Payer Name Payer Address Payer Phone Insured Name Patient Relati onship to Insured Coverage Start Date Coverage End Date MEDICARE COMPLETE [facility] [address] [address] [facility] [id number] RAMON SAENZ self
--- OUTSIDE RECORDS SUMMARY | 2021-09-15 13:35 | CCD | Continuity of Care Document ---
Author Author Juanita Amezcua Organization Unknown Address [address] [address] Phone [phone] Care Team Providers Care Rag Room Supervisor Name Role Phone Marco A Portillo AUTM [phone] Problems Active Problems Provider Date Obstructive sleep apnea syndrome Juana Haskins M.D. Onset: 05/03/2021 Malaise and fatigue Juana Haskins M.D. Onset: 05/03/2021 Hypersomnia Juana Haskins M.D. Onset: 05/03/2021 Paroxysmal atrial fibrillation Juana Haskins M.D. Onset: Social History Type Date Description Comments Sex Unknown Tobacco Use Start: Unknown Patient has never smoked Allergies, Adverse Reactions, Alerts Active Allergies Criticality Reaction | Severity Comments Date Sulfamethoxazole Unable to assess criticality 05/03/2021 Medications Description No Information Available Immunizations Description No Information Available Vital Signs Date Vital Result Comment 05/03/2021 8:54am BP Systolic 140 mmHg BP Diastolic 90 mmHg Heart Rate 58 /min Respiratory Rate 14 /min Height 63 inches 5'3" Weight 236.00 lb BMI (Body Mass Index) 41.8 kg/m2 [place] Body Weight 115 lb Results Description No Information Available Procedures Date Code Description Status 07/13/2021 26250 Office/Outpatient Established Lo w MDM 20-29 Min Completed 06/26/2021 32706 Polysomnography Sleep Staging 4+ Parameters Completed 05/03/2021 66583 Office/Outpatient New Low MDM 30 -44 Minutes Completed Medical Devices Description No Information Available Encounters Type Date Location Provider Dx Diagnosis Office Visit 07/13/2021 9:30a Main office - [place] Liliam Ford G47.33 Obstructive sleep apnea (adult) (pediatric) R53.83 Other fatigue G47.14 Hypersomnia due to medical c ondition I48.0 Paroxysmal atrial fibrillati on Office Visit 05/03/2021 8:30a Main office - [place] Liliam Ford G47.33 Obstructive sleep apnea (adult) (pediatric) R53.83 Other fatigue G47.14 Hypersomnia due to medical c ondition I48.0 Paroxysmal atrial fibrillati on Assessments Date Code Description Provider 07/13/2021 G47.33 Obstructive sleep apnea (adult) (pediatric) Juana Haskins M.D. 07/13/2021 R53.83 Other fatigue Juana Haskins M.D. 07/13/2021 G47.14 Hypersomnia due to medical condi tion Juana Haskins M.D. 07/13/2021 I48.0 Paroxysmal atrial fibrillation Moy Haskins M.D. 06/26/2021 G47.33 Obstructive sleep apnea (adult) (pediatric) Juana Haskins M.D. 05/03/2021 G47.33 Obstructive sleep apnea (adult) (pediatric) Juana Haskins M.D. 05/03/2021 R53.83 Other fatigue Juana Haskins M.D. 05/03/2021 G47.14 Hypersomnia due to medical condi tiziggy Haskins M.D. 05/03/2021 I48.0 Paroxysmal atrial fibrillation Moy Haskins M.D. Plan of Treatment Future Appointment(s):* 11/08/2021 12:15 pm - Juana Haskins M.D. at Main office - [place] Functional Status Description No Information Available Mental Status Description No Information Available Referrals Description No Information Available
--- OUTSIDE RECORDS SUMMARY | 2021-09-15 13:35 | CCD | Continuity of Care Document ---
Author Author Juanita Amezcua Organization Unknown Address [address] [address] Phone [phone] Care Team Providers Care Drapery Installer Name Role Phone Marco A Portillo AUTM [phone] Problems Active Problems Provider Date Obstructive sleep [...] lb BMI (Body Mass Index) 41.8 kg/m2 [place] Body Weight 115 lb Results Description No Information Available Procedures Date Code Description Status 07/13/2021 46713 Office/Outpatient Established Lo w MDM 20-29 Min Completed 06/26/2021 62487 Polysomnography Sleep Staging 4+ Parameters Completed 05/03/2021 77166 Office/Outpatient New Low MDM 30 -44 Minutes Completed Medical Devices Description No Information Available Encounters Type Date Location Provider Dx Diagnosis Office Visit 07/13/2021 9:30a Main office - [place] Liliam Ford G47.33 Obstructive sleep apnea (adult) (pediatric) R53.83 Other fatigue G47.14 Hypersomnia due to medical c ondition I48.0 Paroxysmal atrial fibrillati on Office Visit 05/03/2021 8:30a Main office - [place] Liliam Ford G47.33 Obstructive sleep apnea (adult) [...] Juana Haskins M.D. at Main office - [place] Functional Status Description No Information Available Mental Status Description No Information Available Referrals Description No Information Available
--- OUTSIDE RECORDS SUMMARY | 2021-09-15 13:35 | CCD | Continuity of Care Document ---
Author Author Juanita Amezcua Organization Unknown Address [address] [address] Phone [phone] Care Team Providers Care Showroom Manager Name Role Phone Marco A Portillo AUTM [phone] Problems Active Problems Provider Date Obstructive sleep [...] lb BMI (Body Mass Index) 41.8 kg/m2 [place] Body Weight 115 lb Results Description No Information Available Procedures Date Code Description Status 07/22/2021 40625 Polysomnography Sleep Staging 4+ Parameters W/Cpap Completed 07/13/2021 61758 Office/Outpatient Established Lo w MDM 20-29 Min Completed 06/26/2021 02279 Polysomnography Sleep Staging 4+ Parameters Completed 05/03/2021 14114 Office/Outpatient New Low MDM 30 -44 Minutes Completed Medical Devices Description No Information Available Encounters Type Date Location Provider Dx Diagnosis Office Visit 07/13/2021 9:30a [place] G47.33 Obstructive sleep apnea (adult) (pediatric) R53.83 Other fatigue G47.14 Hypersomnia due to medical c ondition I48.0 Paroxysmal atrial fibrillati on Office Visit 05/03/2021 8:30a Main office - [place] Liliam Ford G47.33 Obstructive sleep apnea (adult) (pediatric) R53.83 Other fatigue G47.14 Hypersomnia due to medical c ondition I48.0 Paroxysmal atrial fibrillati on Assessments Date Code Description Provider 07/22/2021 G47.33 Obstructive sleep apnea (adult) (pediatric) Juana Haskins M.D. 07/22/2021 G47.61 Periodic limb movement disorder Juana Haskins M.D. 07/13/2021 G47.33 Obstructive sleep apnea (adult) (pediatric) [...] 05/03/2021 G47.14 Hypersomnia due to medical condi tion Juana Haskins M.D. 05/03/2021 I48.0 Paroxysmal atrial fibrillation Moy Haskins M.D. Plan of Treatment Future Appointment(s):* 11/08/2021 12:15 pm - Juana Haskins M.D. at Main office - [place] Functional Status Description No Information Available Mental Status Description No Information Available Referrals Description No Information Available
--- OUTSIDE RECORDS SUMMARY | 2021-09-15 13:35 | CCD | Continuity of Care Document ---
Author Author Juanita Amezcua Organization Unknown Address [address] [address] Phone [phone] Care Team Providers Care Outreach Team Member Name Role Phone Marco A Portillo AUTM [phone] Problems Active Problems Provider Date Obstructive sleep [...] lb BMI (Body Mass Index) 41.8 kg/m2 [place] Body Weight 115 lb Results Description No Information Available Procedures Date Code Description Status 07/13/2021 20939 Office/Outpatient Established Lo w MDM 20-29 Min Completed 06/26/2021 16368 Polysomnography Sleep Staging 4+ Parameters Completed 05/03/2021 51849 Office/Outpatient New Low MDM 30 -44 Minutes Completed Medical Devices Description No Information Available Encounters Type Date Location Provider Dx Diagnosis Office Visit 07/13/2021 9:30a Main office - [place] Liliam Ford G47.33 Obstructive sleep apnea (adult) (pediatric) R53.83 Other fatigue G47.14 Hypersomnia due to medical c ondition I48.0 Paroxysmal atrial fibrillati on Office Visit 05/03/2021 8:30a Main office - [place] Liliam Ford G47.33 Obstructive sleep apnea (adult) [...] Juana Haskins M.D. at Main office - [place] Functional Status Description No Information Available Mental Status Description No Information Available Referrals Description No Information Available
--- OUTSIDE RECORDS SUMMARY | 2021-09-15 13:35 | CCD | Continuity of Care Document ---
Author Author Juanita HASKINS M.D. Organization Unknown Address [address] [place] [address] Phone [phone] Care Team Providers Care Meter Reader Name Role Phone Urmila Hooper AUTM [phone] Marco A Portillo AUTM [phone] Problems Active Problems Provider Date Obstructive sleep [...] lb BMI (Body Mass Index) 41.8 kg/m2 [place] Body Weight 115 lb Results Description No Information Available Procedures Date Code Description Status 07/13/2021 19949 Office/Outpatient Established Lo w MDM 20-29 Min Completed 06/26/2021 22907 Polysomnography Sleep Staging 4+ Parameters Completed 05/03/2021 66864 Office/Outpatient New Low MDM 30 -44 Minutes Completed Medical Devices Description No Information Available Encounters Type Date Location Provider Dx Diagnosis Office Visit 07/13/2021 9:30a [facility] Liliam Ford G47.33 Obstructive sleep apnea (adult) (pediatric) R53.83 Other fatigue G47.14 Hypersomnia due to medical c ondition I48.0 Paroxysmal atrial fibrillati on Office Visit 05/03/2021 8:30a [facility] Liliam Ford G47.33 Obstructive sleep apnea (adult) [...] Haskins M.D. Plan of Treatment Future Appointment(s):* 07/22/2021 7:45 pm - Sleep Study at [facility] Functional Status Description No Information Available Mental Status Description No Information Available Referrals Description No Information Available
--- OUTSIDE RECORDS SUMMARY | 2021-09-15 13:35 | CCD | Continuity of Care Document ---
Author Organization Unknown Address Unknown Phone Unavailable Care Team Providers Care Cellophane Bath Mixer Name Role Phone Lola Pete MD AUTM [phone] Marco A Portillo RPA-C AUTM [phone] Analia Parker MD AUTM [phone] Mariama Juan AUTM [phone] Bj Olivares MD AUTM [phone] Problems Active Problems Provider Date Paroxysmal atrial fibrillation Rene Salguero MD Onset: 1 11/23/2018 Chronic diastolic heart failure Rene Salguero MD Onset: 09/23/2019 Hypertensive heart disease with congestive heart failure Shameka Hooper PA-C Onset: 03/28/2021 Mitral valve disorder Rene Salguero MD Onset: 09/23/2019 Aortic valve disorder Rene Salguero MD Onset: 09/23/2019 Premature beats Rene Salguero MD Onset: 09/23/2019 Mixed hyperlipidemia Rene Salguero MD Onset: 02/03/2015 Dietary management surveillance Rene Salguero MD Onset: 09/23/2019 Hypersomnia Onset: 05/03/2021 Malaise and fatigue Onset: 05/03/2021 Obstructive sleep apnea syndrome Onset: 05/03/2021 Social History Type Date Description Comments Sex Unknown ETOH Use Occasionally consumes alcohol Tobacco Use Start: Unknown End: Unknown Patient is a former smoker Smoked 1 ppd for 15 years, quit in 1984 Smoking Status Reviewed: 03/28/21 Patient is a former smoker Sm oked 1 ppd for 15 years, quit in 1984 Exercise Type/Frequency General Activities Daily Exercise Type/Frequency Does housework daily Exercise Limitations None Allergies, Adverse Reactions, Alerts Active Allergies Reaction Severity Comments Date Sulfa Urticaria 02/03/2015 Sulfamethoxazole 05/23/2021 Medications Active Medications SIG Qnty Indications Ordering Provide r Date Tums 500mg Chewtabs 2 tablets twice a day Unknown 03/27/2021 Calcium 1200 [id number] Chew tabs 2 by mouth three times a day Unknown 09/27 Multivitamin Women 50+ 50+ Tablets 1 by mouth every day Unknown 09/27/2020 Calcitriol 0.25mcg Capsules 1 by mouth every day Analia Parker MD 09/27/2020 Turmeric 500mg Tablets 1 by mouth twice a day Unknown 09/27/2020 Flecainide Acetate 50mg Tablets 1 by mouth twice a day 180tabs I48.0 Andreas Richards MD 04/25/2020 Metoprolol Tartrate 50mg Tablets 1 by mouth twice a day 180tabs I48.0 Andreas Richards MD 04/25/2020 Losartan Potassium 25mg Tablets 1 by mouth every day Unknown 09/22/2019 Amitriptyline HCL 50mg Tablets 1 by mouth every day Unknown 09/22/2019 Eliquis 5mg Tablets 1 by mouth twice a day Unknown 09/22/2019 Garlic 10mg Capsules 1 po eden ly Unknown 02/02/2015 Coq-10 10mg Capsules 1 by mouth every day Rene Salguero MD 02/02/2015 Immunizations Description No Information Available Vital Signs Date Vital Result Comment 03/28/2021 11:23am Weight 236.00 lb Height 63 inches 5'3" BMI (Body Mass Index) 41.8 kg/m2 Heart Rate 56 /min Regular Respiratory Rate 16 /min BP Systolic Right Arm 126 mmHg sitting, large cuf f BP Diastolic Right Arm 66 mmHg sitting, large cu ff BP Systolic Left Arm 122 mmHg sitting BP Diastolic Left Arm 66 mmHg sitting 09/28/2020 9:51am Weight 231.00 lb Height 63 inches 5'3" BMI (Body Mass Index) 40.9 kg/m2 Heart Rate 60 /min Regular Respiratory Rate 16 /min BP Systolic Right Arm 126 mmHg sitting, large cuf f BP Diastolic Right Arm 74 mmHg sitting, large cu ff BP Systolic Left Arm 126 mmHg sitting BP Diastolic Left Arm 70 mmHg sitting Results Test Acquired Date Facility Test Result H/L Range Note Renal Profile 06/20/2021 [facility] ([facility])- - Glucose 123 High 70-106 Blood Urea Nitrogen 17.3 7-18 Creatinine 1.1 0.55-1.3 GFR (Calculated) 49 Low >60 Sodium 136.3 135-145 Potassium 4.37 3.5-5.5 Chloride 103.5 94-110 Carbon Dioxide 28.1 21-32 Calcium 8.2 Low 8.5-10.1 Phosphorus 2.2 Low 2.5-4.9 Albumin 4.1 3.2-5.2 CBC without Differential 06/20/2021 [facility] (315)- - White Blood Count 9.8 4.0-10.0 Red Blood Count 4.85 4.00-5.40 Platelets 333 172-450 Hemoglobin 14.4 12.0-16.0 Hematocrit 44.1 36.0-47.0 Renal Profile 05/17/2021 [facility] ([facility])- - Glucose 111 High 70-106 Blood Urea Nitrogen 14.6 7-18 Creatinine 1.0 0.55-1.3 GFR (Calculated) 55 Low >60 Sodium 138.3 135-145 Potassium 4.17 3.5-5.5 Chloride 100.4 94-110 Carbon Dioxide 28.8 21-32 Calcium 8.9 8.5-10.1 Phosphorus 3.2 2.5-4.9 Albumin 4.1 3.2-5.2 CBC without Differential 05/17/2021 [facility] (315)- - White Blood Count 9.0 4.0-10.0 Red Blood Count 4.68 4.00-5.40 Platelets 312 172-450 Hemoglobin 14.0 12.0-16.0 Hematocrit 42.2 36.0-47.0 Laboratory test finding 05/17/2021 [facility] (315)- - Magnesium Level 1.66 1.6-2.6 Renal Profile 04/17/2021 [facility] (315)- - Glucose 148 High 70-106 Blood Urea Nitrogen 15.9 7-18 Creatinine 1.2 0.55-1.3 GFR (Calculated) 45 Low >60 Sodium 140 135-145 Potassium 4.4 3.5-5.5 Chloride 103.5 70-106 Carbon Dioxide 30.1 21-32 Calcium 9.3 8.5-10.1 Phosphorus 3.6 2.5-4.9 Albumin 4.0 3.2-5.2 CBC without Differential 04/17/2021 [facility] ([facility] - White Blood Count 8.0 4.0-10.0 Red Blood Count 4.56 4.00-5.40 Platelets 321 172-450 Hemoglobin 13.3 12.0-16.0 Hematocrit 41.3 36.0-47.0 Renal Profile 03/16/2021 [facility] (315)- - Glucose 108 High 70-100 Blood Urea Nitrogen 12.4 5-21 Creatinine 1.1 0.6-1.5 GFR (Calculated) 49 Sodium 141.6 136-146 Potassium 3.84 3.5-5.3 Chloride 99.1 98-110 Carbon Dioxide 30.0 20-32 Calcium 8.7 8.4-10.4 Phosphorus 3.7 Albumin 4.2 3.5-4.7 CBC without Differential 03/16/2021 [facility] ([facility])- - White Blood Count 8.5 4.3-10.9 Red Blood Count 4.83 4.70-6.20 Platelets 343 130-400 Hemoglobin 14.4 13.0-17.0 Hematocrit 43.5 39.0-50.0 Procedures Date Code Description Status 03/28/2021 47625 Office/Outpatient Established Mo d MDM 30-39 Min Completed 03/28/2021 14941 ECG 12-Lead Completed Medical Devices Description No Information Available Encounters Type Date Location Provider Dx Diagnosis Office Visit 03/28/2021 11:30a Main Office Urmila Hooper PA-C I48.0 Paroxysmal atrial fibrillation I50.32 Chronic diastolic (congestiv e) heart failure I11.0 Hypertensive heart disease w ith heart failure I34.0 Nonrheumatic mitral (valve) insufficiency I35.1 Nonrheumatic aortic (valve) insufficiency I49.3 Ventricular premature depola rization I27.29 Other secondary pulmonary hy pertension E78.2 Mixed hyperlipidemia Z71.3 Dietary counseling and surve illance Assessments Date Code Description Provider 03/28/2021 I48.0 Paroxysmal atrial fibrillation Marnie Hooper PA-C 03/28/2021 I50.32 Chronic diastolic (congestive) h eart failure Urmila Hooper PA-C 03/28/2021 I11.0 Hypertensive heart disease with heart failure Urmila Hooper PA-C 03/28/2021 I34.0 Nonrheumatic mitral (valve) insu fficiency HERI RobertsC 03/28/2021 I35.1 Nonrheumatic aortic (valve) insu fficiency HERI RobertsC 03/28/2021 I49.3 Ventricular premature depolariza tion Urmila Hooper PA-C 03/28/2021 I27.29 Other secondary pulmonary hypert ension HERI RobertsC 03/28/2021 E78.2 Mixed hyperlipidemia Urmila copeland PA-C 03/28/2021 Z71.3 Dietary counseling and surveilla barber Hooper PA-C Plan of Treatment Future Appointment(s):* 09/28/2021 10:15 am - Urmila Hooper PA-C at Main Office 03/28/2021 - Urmila Hooper PA-C* I48.0 Paroxysmal atrial fibrillation * I50.32 Chronic diastolic (congestive) heart failure* Recommendations:* Follow a 2 grams sodium diet and 50 ounces fluid restriction per 24 hour and do daily weights. Call the office for weight gain of 3 lbs or more. * I11.0 Hypertensive heart disease with heart failure * I34.0 Nonrheumatic mitral (valve) insufficiency * I35.1 Nonrheumatic aortic (valve) insufficiency * I49.3 Ventricular premature depolarization * I27.29 Other secondary pulmonary hypertension * E78.2 Mixed hyperlipidemia * Z71.3 Dietary counseling and surveillance* Recommendations:* Follow a low fat/low cholesterol diet and do at least 30 minutes of sustained aerobic activity daily. * All * Follow up:* 6 month follow up. Request labs done by PCP a couple weeks ago. Functional Status Functional Condition Comment Date Status Independent with all ADL's Activ e Mental Status Description No Information Available Referrals Refer to Reason for Referral Status Appt Date Bj Olivares MD Referral to evaluate and treat for JAMAR C losed 05/03/2021 [facility] [address] [place] [address] [phone]
--- OUTSIDE RECORDS SUMMARY | 2021-09-15 13:35 | CCD | Continuity of Care Document ---
Author Organization Unknown Address Unknown Phone Unavailable Care Team Providers Care [employer] Attorney Name Role Phone Lola Pete MD AUTM [phone] Marco A Portillo RPA-C AUTM [phone] Analia Parker MD AUTM [phone] Mariama Juan AUTM [phone] Bj Olivares MD AUTM [phone] Problems Active Problems Provider Date Paroxysmal atrial [...] None Allergies, Adverse Reactions, Alerts Active Allergies Criticality Reaction | Severity Comments Date Sulfa Unable to assess criticality Urticaria 02/03/2015 Sulfamethoxazole Unable to assess criticality 05/23/2021 Medications Active Medications SIG Qnty Indications Ordering Provide r Date Tums 500mg Chewtabs 2 tablets twice a day Unknown 03/27/2021 Calcium 1200 [id number] Chew tabs 2 by mouth three times [...] day 180tabs I48.0 Andreas Richards MD 04/25/2020 Amitriptyline HCL 50mg Tablets 1 by mouth [...] Test Result H/L Range Note Renal Profile 07/24/2021 [facility] ([facility])- - Glucose 115 High 70-100 Blood Urea Nitrogen 18.2 5-21 Creatinine 1.2 0.6-1.5 GFR (Calculated) 45 Sodium 141.3 136-146 Potassium 4.06 3.5-5.3 Chloride 103.7 98-110 Carbon Dioxide 30.2 20-32 Calcium 8.9 8.4-10.4 Phosphorus 3.4 Albumin 4.0 3.5-4.7 CBC without Differential 07/24/2021 [facility] ([facility])- - White Blood Count 10.0 4.3-10.9 Red Blood Count 4.41 Low 4.70-6.20 Platelets 359 130-400 Hemoglobin 13.3 13.0-17.0 Hematocrit 40.5 39.0-50.0 Renal Profile 06/20/2021 [facility] (315)- - Glucose 123 High 70-106 Blood Urea Nitrogen 17.3 7-18 Creatinine 1.1 0.55-1.3 GFR (Calculated) 49 Low >60 Sodium 136.3 135-145 Potassium 4.37 3.5-5.5 Chloride 103.5 94-110 Carbon Dioxide 28.1 21-32 Calcium 8.2 Low 8.5-10.1 Phosphorus 2.2 Low 2.5-4.9 Albumin 4.1 3.2-5.2 CBC without Differential 06/20/2021 [facility] ([facility])- - White Blood Count 9.8 [...] 4.1 3.2-5.2 CBC without Differential 05/17/2021 [facility] ([facility])- - White Blood Count 9.0 [...] 4.0 3.2-5.2 CBC without Differential 04/17/2021 [facility] ([facility])- - White Blood Count 8.0 [...] 39.0-50.0 Procedures Date Code Description Status 03/28/2021 96076 Office/Outpatient Established Mo d MDM 30-39 Min Completed 03/28/2021 01910 ECG 12-Lead Completed Medical Devices Description No [...] Description Provider 03/28/2021 I48.0 Paroxysmal atrial fibrillation HERI CoatsC 03/28/2021 I50.32 Chronic diastolic (congestive) h eart failure Urmila Hooper PA-C 03/28/2021 I11.0 Hypertensive heart disease with heart failure HERI RobertsC 03/28/2021 I34.0 Nonrheumatic mitral (valve) insu fficiency HERI RobertsC 03/28/2021 I35.1 Nonrheumatic aortic (valve) insu fficiency HERI RobertsC 03/28/2021 I49.3 Ventricular premature depolariza tion HERI RobertsC 03/28/2021 I27.29 Other secondary pulmonary hypert ension HERI RobertsC 03/28/2021 E78.2 Mixed hyperlipidemia HERI SpiveyC 03/28/2021 Z71.3 Dietary counseling and surveilla nce Urmila Hooper PA-C Plan of Treatment Future Appointment(s):* [...] and treat for JAMAR C losed 05/03/2021 [facility] Neurology [facility] [place] [address] [phone]
--- OUTSIDE RECORDS SUMMARY | 2021-09-15 13:35 | CCD ---
Continuity of Care Document (CCD) Created on: 06/22/2021 Juanita Saenz External Reference #: [id number] Sex: Female Author Author Juanita DOTSON Organization Unknown Address [address] [address] [place] [address] Phone [phone] Care Team Providers Care Reading Specialist Name Role Phone BENITA DOTSON AUTM [phone] Social History Type Date Description Comments Sex Unknown Procedures Date Code Description Status 06/19/2021 48799 Office/Outpatient Established Lo w MDM 20-29 Min Completed 03/19/2021 01574 Office/Outpatient Established Lo w MDM 20-29 Min Completed Encounters Type Date Location Provider Dx Diagnosis Office Visit 06/19/2021 9:30a [facility] RAEANN Balderrama I10 Essential (primary) hyperten stephanie E78.5 Hyperlipidemia, unspecified E03.9 Hypothyroidism, unspecified Office Visit 03/19/2021 9:00a [facility] RAEANN Balderrama E11.9 Type 2 diabetes mellitus wit hout complications I10 Essential (primary) hyperten stephanie E78.5 Hyperlipidemia, unspecified Assessments Date Code Description Provider 06/19/2021 I10 Essential (primary) hypertension RAEANN Cole 06/19/2021 E78.5 Hyperlipidemia, unspecified RAEANN Walton 06/19/2021 E03.9 Hypothyroidism, unspecified RAEANN Walton 03/19/2021 E11.9 Type 2 diabetes mellitus without complications RAEANN Cole 03/19/2021 I10 Essential (primary) hypertension RAEANN Cole 03/19/2021 E78.5 Hyperlipidemia, unspecified RAEANN Walton Plan of Treatment Future Appointment(s):* 09/20/2021 9:00 am - RAEANN Cole at [facility]
--- OUTSIDE RECORDS SUMMARY | 2021-09-15 13:35 | CCD | Continuity of Care Document ---
Author Organization Unknown Address Unknown Phone Unavailable Care Team Providers Care Electronic Commerce Specialist Name Role Phone Lola Pete MD AUTM [phone] Marco A Portillo RPA-C AUTM Analia Parker MD AUTM [phone] Mariama Juan AUTM [phone] Bj Olivares MD AUTM [phone] Problems Active Problems Provider Date Paroxysmal atrial [...] Type/Frequency Does housework daily Exercise Limitations None Allergies and adverse reactions Active Allergies Criticality Reaction | Severity Comments Date Sulfa Unable to assess criticality Urticaria 02/03/2015 Sulfamethoxazole Unable to assess criticality 05/23/2021 Medications Active Medications SIG Qnty Indications Ordering Provide r Date Tums 500mg Chewtabs 2 tablets twice a day Unknown 03/27/2021 Calcium 1200 [id number] Chew tabs 2 by mouth three times [...] Date Facility Test Result H/L Range Note CBC without Differential 08/23/2021 [facility] ([facility])- - White Blood Count 9.5 4.3-10.9 Red Blood Count 4.69 Low 4.70-6.20 Platelets 342 130-400 Hemoglobin 13.8 13.0-17.0 Hematocrit 42.1 39.0-50.0 Renal Profile 08/23/2021 [facility] ([facility])- - Glucose 155 High 70-100 Blood Urea Nitrogen 16.3 5-21 Creatinine 1.2 0.6-1.5 GFR (Calculated) 45 Sodium 139.7 136-146 Potassium 3.24 Low 3.5-5.3 Chloride 101 98-110 Carbon Dioxide 30.2 20-32 Calcium 9.8 8.4-10.4 Phosphorus 3.4 Albumin 4.1 3.5-4.7 Renal Profile 07/24/2021 [facility] (315)- - Glucose 115 High 70-100 Blood Urea Nitrogen 18.2 5-21 Creatinine 1.2 0.6-1.5 GFR (Calculated) 45 Sodium 141.3 136-146 Potassium 4.06 3.5-5.3 Chloride 103.7 98-110 Carbon Dioxide 30.2 20-32 Calcium 8.9 8.4-10.4 Phosphorus 3.4 Albumin 4.0 3.5-4.7 CBC without Differential 07/24/2021 Patient[facility] (315)- - White Blood Count 10.0 [...] 4.1 3.2-5.2 CBC without Differential 06/20/2021 Patient's [facility] e (315)- - White Blood Count 9.8 [...] 4.2 3.5-4.7 CBC without Differential 03/16/2021 [facility] ([facility])- - White Blood Count 8.5 4.3-10.9 Red Blood Count 4.83 4.70-6.20 Platelets 343 130-400 Hemoglobin 14.4 13.0-17.0 Hematocrit 43.5 39.0-50.0 Procedures Date Code Description Status 03/28/2021 35309 Office/Outpatient Established Mo d MDM 30-39 Min Completed 03/28/2021 13160 ECG 12-Lead Completed Medical Devices Description No [...] Description Provider 03/28/2021 I48.0 Paroxysmal atrial fibrillation K johana Brenton Hooper, RAEANN-C 03/28/2021 I50.32 Chronic diastolic (congestive) h eart failure RAEANN Roberts-C 03/28/2021 I11.0 Hypertensive heart disease with heart failure Urmila Hooper PA-C 03/28/2021 I34.0 Nonrheumatic mitral (valve) insu fficiency Urmila Hooper, PA-C 03/28/2021 I35.1 Nonrheumatic aortic (valve) insu fficiency Urmila Hooper PA-C 03/28/2021 I49.3 Ventricular premature depolariza tion Urmila Hooper PA-C 03/28/2021 I27.29 Other secondary pulmonary hypert ension Urmila Hooper, PA-C 03/28/2021 E78.2 Mixed hyperlipidemia Urmila copeland PA-C 03/28/2021 Z71.3 Dietary counseling and surveilla nce [...] and treat for JAMAR C losed 05/03/2021 [facility] Neurology [facility] [place] [address] [phone]
--- OUTSIDE RECORDS SUMMARY | 2021-09-15 13:35 | CCD | Continuity of Care Document ---
Author Author Juanita Amezcua Organization Unknown Address [address] [address] Phone [phone] Care Team Providers Care Manager Payment Name Role Phone Urmila Hooper AUTM [phone] Marco A Portillo AUTM [phone] Problems Active Problems Provider Date Obstructive sleep apnea syndrome Juana Haskins M.D. Onset: 05/03/2021 Malaise and fatigue Juana Haskins M.D. Onset: 05/03/2021 Hypersomnia Juana Haskins M.D. Onset: 05/03/2021 Paroxysmal atrial fibrillation Juana Haskins M.D. Onset: Social History Type Date Description Comments Sex Unknown Tobacco Use Start: Unknown Patient has never smoked Allergies, Adverse Reactions, Alerts Active Allergies Reaction Severity Comments Date Sulfamethoxazole 05/03/2021 Medications Description No Information Available Immunizations Description No Information Available Vital Signs Date Vital Result Comment 05/03/2021 8:54am BP Systolic 140 mmHg BP Diastolic 90 mmHg Heart Rate 58 /min Respiratory Rate 14 /min Height 63 inches 5'3" Weight 236.00 lb BMI (Body Mass Index) 41.8 kg/m2 [place] Body Weight 115 lb Results Description No Information Available Procedures Date Code Description Status 05/03/2021 57915 Office/Outpatient New Low MDM 30 -44 Minutes Completed Medical Devices Description No Information Available Encounters Type Date Location Provider Dx Diagnosis Office Visit 05/03/2021 8:30a Main office - [place] Liliam [place] G47.33 Obstructive sleep apnea (adult) (pediatric) R53.83 Other fatigue G47.14 Hypersomnia due to medical c ondition I48.0 Paroxysmal atrial fibrillati on Assessments Date Code Description Provider 05/03/2021 G47.33 Obstructive sleep apnea (adult) (pediatric) Juana Haskins M.D. 05/03/2021 R53.83 Other fatigue Juana Haskins M.D. 05/03/2021 G47.14 Hypersomnia due to medical condi tion Juana Haskins M.D. 05/03/2021 I48.0 Paroxysmal atrial fibrillation Moy Haskins M.D. Plan of Treatment Future Appointment(s):* 07/31/2021 7:45 pm - Sleep Study at [facility] * 07/13/2021 9:30 am - Juana Haskins M.D. at [facility] Functional Status Description No Information Available Mental Status Description No Information Available Referrals Description No Information Available
--- OUTSIDE RECORDS SUMMARY | 2021-09-15 13:35 | CCD | Continuity of Care Document ---
Author Author Juanita HASKINS M.D. Organization Unknown Address [address] [place] [address] Phone [phone] Care Team Providers Care Manager Building Name Role Phone Marco A Portillo AUTM [phone] Problems Active Problems Provider Date Obstructive sleep [...] lb BMI (Body Mass Index) 41.8 kg/m2 [place] Body Weight 115 lb Results Description No Information Available Procedures Date Code Description Status 07/13/2021 57841 Office/Outpatient Established Lo w MDM 20-29 Min Completed 06/26/2021 70899 Polysomnography Sleep Staging 4+ Parameters Completed 05/03/2021 37687 Office/Outpatient New Low MDM 30 -44 Minutes Completed Medical Devices Description No Information Available Encounters Type Date Location Provider Dx Diagnosis Office Visit 07/13/2021 9:30a Main office - [place] Liliam Ford G47.33 Obstructive sleep apnea (adult) (pediatric) R53.83 Other fatigue G47.14 Hypersomnia due to medical c ondition I48.0 Paroxysmal atrial fibrillati on Office Visit 05/03/2021 8:30a [facility] Liliam Ford G47.33 Obstructive sleep apnea (adult) (pediatric) R53.83 Other fatigue G47.14 Hypersomnia due to medical c ondition I48.0 Paroxysmal atrial fibrillati on Assessments Date Code Description Provider 07/13/2021 G47.33 Obstructive sleep apnea (adult) (pediatric) Juana Haskins M.D. 07/13/2021 R53.83 Other fatigue Juana Haskins M.D. 07/13/2021 G47.14 Hypersomnia due to medical condi tiziggy Haskins M.D. 07/13/2021 I48.0 Paroxysmal atrial fibrillation [...] 12:15 pm - Juana Haskins M.D. at [facility] * 07/22/2021 7:45 pm - Sleep Study at [facility] Functional Status Description No Information Available Mental Status Description No Information Available Referrals Description No Information Available
--- OUTSIDE RECORDS SUMMARY | 2021-09-15 13:35 | CCD | Continuity of Care Document ---
Author Author Juanita Amezcua Organization Unknown Address [address] [place] [address] Phone [phone] Care Team Providers Care Mothers Helper Name Role Phone Urmila Hooper AUTM [phone] Marco A Portillo AUTM [phone] Problems Active Problems Provider Date Obstructive sleep [...] lb BMI (Body Mass Index) 41.8 kg/m2 [place] Body Weight 115 lb Results Description No Information Available Procedures Date Code Description Status 06/26/2021 80694 Polysomnography Sleep Staging 4+ Parameters Completed 05/03/2021 34529 Office/Outpatient New Low MDM 30 -44 Minutes Completed Medical Devices Description No Information Available Encounters Type Date Location Provider Dx Diagnosis Office Visit 05/03/2021 8:30a Main office - [place] Liliam [place] G47.33 Obstructive sleep apnea (adult) (pediatric) R53.83 Other fatigue G47.14 Hypersomnia due to medical c ondition I48.0 Paroxysmal atrial fibrillati on Assessments Date Code Description Provider 06/26/2021 G47.33 Obstructive sleep apnea (adult) (pediatric) Juana Haskins M.D. 05/03/2021 G47.33 Obstructive sleep apnea (adult) (pediatric) Juana Haskins M.D. 05/03/2021 R53.83 Other fatigue Juana Haskins M.D. 05/03/2021 G47.14 Hypersomnia due to medical condi tion Juana Haskins M.D. 05/03/2021 I48.0 Paroxysmal atrial fibrillation M niyah Haskins M.D. Plan of Treatment Future Appointment(s):* 07/31/2021 7:45 pm - Sleep Study at [facility] * 07/13/2021 9:30 am - Juana Haskins M.D. at [facility] Functional Status Description No Information Available Mental Status Description No Information Available Referrals Description No Information Available
--- OUTSIDE RECORDS SUMMARY | 2021-09-15 13:36 | CCD ---
Author Author [facility] Organization [facility] Address Unknown Phone Unavailable Care Team Providers Care Rivet Machine Operator Name Role Phone Gomez, Phuong FARM SERVICE CONSULTANT Unavailable Unavailable Gomez, Phuong FARM SERVICE CONSULTANT Unavailable Unavailable Gomez, Phuong FARM SERVICE CONSULTANT Unavailable Unavailable Gomez, Phuong FARM SERVICE CONSULTANT Unavailable Unavailable Gomez, Phuong FARM SERVICE CONSULTANT Unavailable Unavailable Gomez, Phuong FARM SERVICE CONSULTANT Unavailable Unavailable Gomez, Phuong FARM SERVICE CONSULTANT Unavailable Unavailable Gomez, Phuong FARM SERVICE CONSULTANT Unavailable Unavailable Gomez, Phuong FARM SERVICE CONSULTANT Unavailable Unavailable Gomez, Phuong FARM SERVICE CONSULTANT Unavailable Unavailable Gomez, Phuong FARM SERVICE CONSULTANT Unavailable Unavailable Gomez, Phuong FARM SERVICE CONSULTANT Unavailable Unavailable Gomez, Phuong FARM SERVICE CONSULTANT Unavailable Unavailable Belgica Hoopre Unavailable Unavailable Belgica Hooper Unavailable Unavailable Belgica Hooper Unavailable Unavailable Belgica Hooper Unavailable Unavailable Belgica Hooper Unavailable Unavailable Belgica Hooper Unavailable Unavailable Belgica Hooper Unavailable Unavailable Belgica Hooper Unavailable Unavailable Belgica Hooper Unavailable Unavailable Symenow, Belgica Urmila PA Unavailable Unavailable Symenow, Belgica Urmila PA Unavailable Unavailable Symenow, Belgica Urmila PA Unavailable Unavailable Symenow, Belgica Urmila PA Unavailable Unavailable Symenow, Belgica Urmila PA Unavailable Unavailable Symenow, Belgica Urmila PA Unavailable Unavailable Symenow, Belgica Urmila PA Unavailable Unavailable Symenow, Belgica Urmila PA Unavailable Unavailable Symenow, Belgica Urmila PA Unavailable Unavailable Symenow, Belgica Urmila PA Unavailable Unavailable Symenow, Belgica Urmila PA Unavailable Unavailable Symenow, Belgica Urmila PA Unavailable Unavailable Symenow, Belgica Urmila PA Unavailable Unavailable Symenow, Belgica Urmila PA Unavailable Unavailable Symenow, Belgica Urmila PA Unavailable Unavailable Symenow, Belgica Urmila PA Unavailable Unavailable Symenow, Belgica Urmila PA Unavailable Unavailable Symenow, Belgica Urmila PA Unavailable Unavailable Symenow, Belgica Urmila PA Unavailable Unavailable Symenow, Belgica Urmila PA Unavailable Unavailable Symenow, Belgica Urmila PA Unavailable Unavailable Symenow, Belgica Urmila PA Unavailable Unavailable Symenow, Belgica Urmila PA Unavailable Unavailable Symenow, Belgica Urmila PA Unavailable Unavailable Symenow, Belgica Urmila PA Unavailable Unavailable Juana Haskins MD Unavailable Unavailable Juana Haskins MD Unavailable Unavailable Juana Haskins MD Unavailable Unavailable Juana Haskins MD Unavailable Unavailable Juana Haskins MD Unavailable Unavailable Juana Haskins MD Unavailable Unavailable Juana Haskins MD Unavailable Unavailable Juana Haskins MD Unavailable Unavailable Juana Haskins MD Unavailable Unavailable Juana Haskins MD Unavailable Unavailable Juana Haskins MD Unavailable Unavailable Juana Haskins MD Unavailable Unavailable Juana Haskins MD Unavailable Unavailable Juana Haskins MD Unavailable Unavailable Juana Haskins MD Unavailable Unavailable Juana Haskins MD Unavailable Unavailable Juana Haskins MD Unavailable Unavailable Juana Haskins MD Unavailable Unavailable Juana Haskins MD Unavailable Unavailable Juana Haskins MD Unavailable Unavailable Juana Haskins MD Unavailable Unavailable Juana Haskins MD Unavailable Unavailable Juana Haskins MD Unavailable Unavailable Juana Haskins MD Unavailable Unavailable Juana Haskins MD Unavailable Unavailable Juana Haskins MD Unavailable Unavailable Ali, Juana ROJAS Unavailable Unavailable Ali, Juana ROJAS Unavailable Unavailable Ali, Juana ROJAS Unavailable Unavailable Ali, Juana ROJAS Unavailable Unavailable Ali, Juana ROJAS Unavailable Unavailable Ali, Juana ROJAS Unavailable Unavailable Ali, Juana ROJAS Unavailable Unavailable Ali, Juana ROJAS Unavailable Unavailable Ali, Juana ROJAS Unavailable Unavailable Ali, Juana ROJAS Unavailable Unavailable Ali, Juana ROJAS Unavailable Unavailable Ali, Juana ROJAS Unavailable Unavailable Ali, Juana ROJAS Unavailable Unavailable Ali, Juana ROJAS Unavailable Unavailable Ali, Juana ROJAS Unavailable Unavailable Ali, Juana ROJAS Unavailable Unavailable Ali, Juana ROJAS Unavailable Unavailable Ali, Juana ROJAS Unavailable Unavailable Ali, Juana ROJAS Unavailable Unavailable Ali, Juana ROJAS Unavailable Unavailable Ali, Jauna ROJAS Unavailable Unavailable Ali, Juana ROJAS Unavailable Unavailable Ali, Juana MD Unavailable Unavailable Ali, Juana MD Unavailable Unavailable Ali, Juana MD Unavailable Unavailable TONTARSKI, G BENITA PA Unavailable Unavailable TONTARSKI, G BENITA PA Unavailable Unavailable TONTARSKI, G BENITA PA Unavailable Unavailable TONTARSKI, G BENITA PA Unavailable Unavailable TONTARSKI, G BENITA PA Unavailable Unavailable TONTARSKI, G BENITA PA Unavailable Unavailable TONTARSKI, G BENITA PA Unavailable Unavailable TONTARSKI, G BENITA PA Unavailable Unavailable TONTARSKI, G BENITA PA Unavailable Unavailable TONTARSKI, G BENITA PA Unavailable Unavailable TONTARSKI, G BENITA PA Unavailable Unavailable TONTARSKI, G BENITA PA Unavailable Unavailable TONTARSKI, G BENITA PA Unavailable Unavailable TONTARSKI, G BENITA PA Unavailable Unavailable TONTARSKI, G BENITA PA Unavailable Unavailable TONTARSKI, G BENITA PA Unavailable Unavailable TONTARSKI, G BENITA PA Unavailable Unavailable TONTARSKI, G BENITA PA Unavailable Unavailable TONTARSKI, G BENITA PA Unavailable Unavailable TONTARSKI, G BENITA PA Unavailable Unavailable TONTARSKI, G BENITA PA Unavailable Unavailable TONTARSKI, G BENITA PA Unavailable Unavailable TONTARSKI, G BENITA PA Unavailable Unavailable TONTARSKI, G BENITA PA Unavailable Unavailable TONTARSKI, G BENITA PA Unavailable Unavailable TONTARSKI, G BENITA PA Unavailable Unavailable TONTARSKI, G BENITA PA Unavailable Unavailable TONTARSKI, G BENITA PA Unavailable Unavailable TONTARSKI, G BENITA PA Unavailable Unavailable TONTARSKI, G BENITA PA Unavailable Unavailable TONTARSKI, G BENITA PA Unavailable Unavailable TONTARSKI, G EBNITA PA Unavailable Unavailable TONTARSKI, G BENITA PA Unavailable Unavailable TONTARSKI, G BENITA PA Unavailable Unavailable TONTARSKI, G BENITA PA Unavailable Unavailable TONTARSKI, G BENITA PA Unavailable Unavailable TONTARSKI, G BENITA PA Unavailable Unavailable TONTARSKI, G BENITA PA Unavailable Unavailable TONTARSKI, G BENITA PA Unavailable Unavailable TONTARSKI, G BENITA PA Unavailable Unavailable TONTARSKI, G BENITA PA Unavailable Unavailable TONTARSKI, G BENITA PA Unavailable Unavailable TONTARSKI, G BENITA PA Unavailable Unavailable TONTARSKI, G BENITA PA Unavailable Unavailable TONTARSKI, G BENITA PA Unavailable Unavailable TONTARSKI, G BENITA PA Unavailable Unavailable TONTARSKI, G BENITA PA Unavailable Unavailable Re-disclosure Warning The records that you are about to access may contain information from federally-assisted alcohol or drug abuse programs. If such information is present, then the following federally mandated warning applies: This information has been disclosed to you from records protected by federal confidentiality rules (42 CFR part 2). The federal rules prohibit you from making any further disclosure of this information unless further disclosure is expressly permitted by the written consent of the person to whom it pertains or as otherwise permitted by 42 CFR part 2. A general authorization for the release of medical or other information is NOT sufficient for this purpose. The Federal rules restrict any use of the information to criminally investigate or prosecute any alcohol or drug abuse patient.The records that you are about to access may contain highly sensitive health information, the redisclosure of which is protected by Article 27-F of the [facility] Public Health law. If you continue you may have access to information: Regarding HIV / AIDS; Provided by facilities licensed or operated by the [facility] Office of Mental Health; or Provided by the [facility] Office for People With Developmental Disabilities. If such information is present, then the following [facility] mandated warning applies: This information has been disclosed to you from confidential records which are protected by state law. State law prohibits you from making any further disclosure of this information without the specific written consent of the person to whom it pertains, or as otherwise permitted by law. Any unauthorized further disclosure in violation of state law may result in a fine or long term sentence or both. A general authorization for the release of medical or other information is NOT sufficient authorization for further disc losure. Family History Family Member Name Family Member Gender Family Member Status Date o f Status Description Data Source(s) Unknown Unknown Problem [facility] ([facility]) Unknown Male Problem [facility] ([facility]) Unknown Unknown Problem [facility] Unknown Unknown Problem [facility]) Encounters Encounter Providers Location Date Indications Data Source(s ) Outpatient Attender: Juana Haskins MD Main office - [place] 07/13/2021 09:30:00 AM EDT MED[facility] ([facility]) ( [place]) [facility] Yearly EGG CRATER Exam [address] [place] [address] 07/03/2021 12:00:00 AM EDT eCW1 (Critical [facility] hospital) Outpatient Attender: BENITA Cummings Buildin 06/19/2021 09:30:00 AM EDT MED[facility] ([facility]) Outpatient Attender: Juana Haskins MD Main office - [place] 05/03/2021 08:30:00 AM EDT MED[facility] ([facility]) Outpatient Attender: Urmila CARY Main Office 03/28/2021 11:30:00 AM EDT [facility] Outpatient Attender: BENITA Cummings Buildin alia 03/19/2021 09:00:00 AM EDT MED[facility] ([facility]) Outpatient Attender: BENITA Cummings Buildin alia 12/18/2020 09:00:00 AM EST MED[facility] ([facility]) Outpatient Attender: Phuong garvey 11/04/2020 07:20:00 AM EST [facility] ([facility]) Outpatient Attender: Urmila CARY Main Office 09/28/2020 08:45:00 AM EST [facility] ([facility]) Outpatient Attender: BENITA CARY Medical Buildin g 09/15/2020 10:00:00 AM EDT MED[facility] ([facility]) Immunizations Vaccine Date Status Description Data Source(s) COVID-19 VACCINE Cand[place] 03/22/2021 12:00:00 AM EDT completed [facility] Vaccine Series Complete: YESThis Data wa s Submitted to [facility] Via [employer]. Medications Medication Brand Name Start Date Product Form Dose Route Admi nistrative Instructions Pharmacy Instructions Status Indications Reaction Description Data Source(s) Calcium Carbonate 500 MG Chewable Tablet [Tums] Tums 03/27/2021 12:00:00 AM EDT active MED[facility] ( [facility]) Calcitriol 0.95257 MG Oral Capsule Calcitriol 09/27/2020 12:00:00 AM EST ORAL active [facility] ([facility]) Multivitamin Women 50+ 09/27/2020 12:00:00 AM EST ORAL active [facility] ([facility]) Calcium 1200 09/27/2020 12:00:00 AM EST ORAL activ e MED[facility] ([facility]) Turmeric 09/27/2020 12:00:00 AM EST ORAL active [facility] ([facility]) Calcium Carbonate 1250 MG / Cholecalciferol 125 UNT Oral Tab let Calcium 500 + D 04/25/2020 12:00:00 AM EDT ORAL completed [facility] ([facility]) Insurance Providers Payer name Policy type / Coverage type Policy ID Covered green party ID Covered green party's relationship to danielle Policy Danielle Plan Information MEDICARE [id number] Gladys [id number] MEDICARE [id number] Gladys [id number] MEDICARE [id number] Gladys [id number] [place] Medig[place] Part B [id number] Self BS [place] Medigap Part B [id number] Self [id number] BS [place] Medigap Part B [id number] Self [id number] BS [place] Medigap Part B [id number] Self Z [id number] BS [place] Medigap Part B [id number] Self Z [id number] BS [place] Medigap Part B [id number] Self Z [id number] BS [place] Medigap Part B [id number] Self Z [id number] MEDICARE BLUE PPO [id number] SP [id number] MEDICARE BLUE PPO 306 [id number] SP [id number] Blue Shield MCR Advantage Commercial [id number] Self [id number] Blue Shield MCR Advantage Commercial [id number] Self Blue Shield MCR Advantage Medigap Part B [id number] Self [id number] Excell[employer] BCBS P [id number] S [id number] Excell[employer] BCYO P [id number] S [id number] MEDICARE BLUE PPO 306 [id number] SP [id number] MEDICARE BLUE PPO 306 [id number] SP [id number] [facility]) Commercial [id number] Self [id number] MEDICARE COMPLETE [id number] SP [id number] [facility]) Commercial [id number] Self [id number] [facility] Health Maintenance Organization (HMO) [id number] Self [id number] [facility] MEDICARE [id number] Gladys [id number] [facility] MEDICARE [id number] Gladys [id number] [facility] MEDICARE [id number] Gladys [id number] [facility] MEDICARE [id number] Gladys [id number] [facility] MEDICARE [id number] [id number] INSURANCE COVID-19 COVID Gladys C OVID INSURANCE COVID-19 [id number] INSURANCE COVID-19 COVID Gladys C OVID [facility] HEA [id number] S [id number] MEDICARE BLUE PPO 306 [id number] SP [id number] [employer] BCBS B [id number] S [id number] BS Medicare Blue Ppo/Hmo Commercial [id number] Self MEDICARE [id number] SP [id number] [id number] BCBS - Medicare Blue Ppo Commercial [id number] Self ANSI-Medicare Part B [id number] [facility] ([facility]) Commercial [id number] Self [id number] [facility] Commercial [id number] Self [id number] [employer] BC/BS S [id number] S [id number] [facility] Commercial [id number] Self [id number] [facility]/Medicare Solu Commercial [id number] Self [id number] [facility]/Medicare Solu Commercial [id number] Self [id number] [facility]/Medicare Solu Commercial [id number] Self [id number] MEDICARE COMPLETE [id number] [facility] Medigap Part B [id number] Self [id number] MEDICARE COMPLETE-[facility] O [id number] S [id number] Problems, Conditions, and Diagnoses Code Display Name Description Problem Type Effective Dates Data Source(s) Z90.710 [id number] 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 Problem 07/03/2021 12:00:00 AM EDT eCW1 ([facility]) Z90.722 [id number] Acquired absence of ovaries, bilateral Pr oblem 07/03/2021 12:00:00 AM EDT eC1 ([facility]) [id number] Obstructive sleep apnea syndrome Obstructive sle ep apnea syndrome Problem 05/03/2021 12:00:00 AM EDT [facility] ([facility] [id number] Malaise and fatigue Malaise and fatigue Problem 0 05/03/2021 12:00:00 AM EDT [facility] ([facility]) [id number] Hypersomnia Hypersomnia Problem 05/03/2021 12:00:00 AM EDT [facility] ([facility]) I48.0 Paroxysmal atrial fibrillation Paroxysmal atrial fibri llation Problem 05/03/2021 12:00:00 AM EDT MED[facility] ([facility] ) G47.14 Hypersomnia Hypersomnia Problem 05/03/2021 12:00:00 AM EDT MED[facility] ([facility] ) R53.83 Malaise and fatigue Malaise and fatigue Problem 0 05/03/2021 12:00:00 AM EDT MED[facility] ([facility] ) G47.33 Obstructive sleep apnea syndrome Obstructive sle ep apnea syndrome Problem 05/03/2021 12:00:00 AM EDT MED[facility] ([facility] ) I11.0 Hypertensive heart disease with congesti ve heart failure Hypertensive heart disease with congestive heart failure Problem 03/28/2021 12:00 :00 AM EDT MED[facility] ([facility]) Surgeries/Procedures Procedure Description Date Indications Data Source(s) Polysomnography Sleep Staging 4+ Parameters W/Cpap 07/22/2021 12:00:00 AM EDT MED[facility] ([facility] ) OFFICE OUTPATIENT VISIT 15 MINUTES 07/13/2021 12:00:00 AM EDT MED[facility] ([facility] ) Polysomnography Sleep Staging 4+ Parameters 06/26/2021 12:00:00 AM EDT MED[facility] ([facility] ) OFFICE OUTPATIENT VISIT 15 MINUTES 06/19/2021 12:00:00 AM EDT [facility] ([facility]) OFFICE OUTPATIENT NEW 30 MINUTES 05/03/2021 12:00:00 A M EDT MED[facility] ([facility] ) ECG ROUTINE ECG W/LEAST 12 LDS W/I&R 03/28/2021 12:00: 00 AM EDT MED[facility] ([facility]) OFFICE OUTPATIENT VISIT 25 MINUTES 03/28/2021 12:00:00 AM EDT MED[facility] ([facility]) OFFICE OUTPATIENT VISIT 15 MINUTES 03/19/2021 12:00:00 AM EDT MED[facility] ([facility]) ECG ROUTINE ECG W/LEAST 12 LDS W/I&R 09/28/2020 12:00: 00 AM EST MED[facility] ([facility]) Results ID Date Data Source [id number] 08/23/2021 12:42:00 PM EDT [facility] ([facility]) Name Value Range Interpretation Code Description Data Bhavya rce(s) Supporting Document(s) Glucose 155 70-100 [facility] Creatinine 1.2 0.6-1.5 [facility] ([facility]) Glomerular filtration rate/1.73 sq M.pre dicted [Volume Rate/Area] in Serum or Plasma by Creatinine-based formula (MDRD) 45 [facility] ([facility]) Blood Urea Nitrogen 16.3 5-21 [facility] ([facility] Sodium 139.7 136-146 [facility] Potassium 3.24 3.5-5.3 [facility] Carbon Dioxide 30.2 20-32 [facility] Calcium 9.8 8.4-10.4 [facility] Chloride 101 98-110 [facility] Phosphorus 3.4 [facility] ([facility]) Albumin 4.1 3.5-4.7 [facility] ID Date Data Source [id number] 08/23/2021 12:42:00 PM EDT [facility] Name Value Range Interpretation Code Description Data Bhavya rce(s) Supporting Document(s) Platelets 342 130-400 [facility] White Blood Count 9.5 4.3-10.9 [facility] Red Blood Count 4.69 4.70-6.20 [facility] ([facility]) Hemoglobin 13.8 13.0-17.0 [facility] ([facility]) Hematocrit 42.1 39.0-50.0 [facility] ([facility]) ID Date Data Source [id number] 07/24/2021 12:50:00 PM EDT [facility] Name Value Range Interpretation Code Description Data Bhavya rce(s) Supporting Document(s) Red Blood Count 4.41 4.70-6.20 [facility] ([facility]) White Blood Count 10.0 4.3-10.9 [facility] Platelets 359 130-400 [facility] Hematocrit 40.5 39.0-50.0 [facility] ([facility]) Hemoglobin 13.3 13.0-17.0 [facility] ([facility]) ID Date Data Source [id number] 07/24/2021 12:50:00 PM EDT [facility] ([facility]) Name Value Range Interpretation Code Description Data Bhavya rce(s) Supporting Document(s) Glucose 115 70-100 [facility] Creatinine 1.2 0.6-1.5 [facility] ([facility]) Blood Urea Nitrogen 18.2 5-21 [facility] ([facility] Glomerular filtration rate/1.73 sq M.pre dicted [Volume Rate/Area] in Serum or Plasma by Creatinine-based formula (MDRD) 45 [facility] ([facility]) Potassium 4.06 3.5-5.3 [facility] ([facility] Sodium 141.3 136-146 [facility] Carbon Dioxide 30.2 20-32 [facility] ([facility]) Chloride 103.7 98-110 [facility] ([facility] Calcium 8.9 8.4-10.4 [facility] Albumin 4.0 3.5-4.7 [facility] ([facility]) Phosphorus 3.4 [facility] ([facility]) ID Date Data Source WWBC DIGITAL / TYRONE BILATERAL MAMMO SCREENING (Ultraso und if indicated) 07/03/2021 12:00:00 AM EDT eC ([facility]) Name Value Range Interpretation Code Description Data Bhavya rce(s) Supporting Document(s) WWBC DIGITAL / TYRONE BILAT ERAL MAMMO SCREENING (Ultrasound if indicated) [facility] ([facility]) ID Date Data Source [id number] 06/20/2021 08:37:00 AM EDT [facility] ([facility]) Name Value Range Interpretation Code Description Data Bhavya rce(s) Supporting Document(s) White Blood Count 9.8 4.0-10.0 [facility] Red Blood Count 4.85 4.00-5.40 [facility] ([facility] Platelets 333 172-450 [facility] Hemoglobin 14.4 12.0-16.0 [facility] ([facility]) Hematocrit 44.1 36.0-47.0 [facility] ([facility]) ID Date Data Source [id number] 06/20/2021 08:37:00 AM EDT [facility] ([facility] Name Value Range Interpretation Code Description Data Bhavya rce(s) Supporting Document(s) Glucose 123 70-106 [facility] Blood Urea Nitrogen 17.3 7-18 [facility] ([facility]) Glomerular filtration rate/1.73 sq M.pre dicted [Volume Rate/Area] in Serum or Plasma by Creatinine-based formula (MDRD) 49 [facility] ([facility]) Creatinine 1.1 0.55-1.3 [facility] ([facility]) Chloride 103.5 94-110 [facility] Sodium 136.3 135-145 [facility] Potassium 4.37 3.5-5.5 [facility] Carbon Dioxide 28.1 21-32 [facility] Albumin 4.1 3.2-5.2 [facility] Calcium 8.2 8.5-10.1 [facility] Phosphorus 2.2 2.5-4.9 [facility] ([facility]) ID Date Data Source [id number] 05/17/2021 03:50:00 PM EDT [facility] Name Value Range Interpretation Code Description Data Bhavya rce(s) Supporting Document(s) Magnesium Level 1.66 1.6-2.6 [facility] ([facility] [facility] [place]) ID Date Data Source [id number] 05/17/2021 03:50:00 PM EDT [facility] ([facility] Name Value Range Interpretation Code Description Data Bhavya rce(s) Supporting Document(s) White Blood Count 9.0 4.0-10.0 [facility] [place]) Platelets 312 172-450 [facility] ([facility] [place] Red Blood Count 4.68 4.00-5.40 [facility] [place] Hemoglobin 14.0 12.0-16.0 [facility] ([facility] [place]) Hematocrit 42.2 36.0-47.0 [facility] ([facility] [place]) ID Date Data Source [id number] 05/17/2021 03:50:00 PM EDT [facility] Name Value Range Interpretation Code Description Data Bhavya rce(s) Supporting Document(s) Creatinine 1.0 0.55-1.3 [facility] ([facility] [place]) Blood Urea Nitrogen 14.6 7-18 [facility] ([facility] Glucose 111 70-106 [facility] [place] Potassium 4.17 3.5-5.5 [facility] ([facility] [place] Sodium 138.3 135-145 [facility] ([facility] [place] Glomerular filtration rate/1.73 sq M.pre dicted [Volume Rate/Area] in Serum or Plasma by Creatinine-based formula (MDRD) 55 [facility] ([facility] [place]) Calcium 8.9 8.5-10.1 [facility] [place] Chloride 100.4 94-110 [facility] [place] Carbon Dioxide 28.8 21-32 [facility] ([facility] [place] Phosphorus 3.2 2.5-4.9 [facility] ([facility] [place]) Albumin 4.1 3.2-5.2 [facility] ([facility] [place] ID Date Data Source [id number] 04/17/2021 10:57:00 AM EDT [facility] Name Value Range Interpretation Code Description Data Bhavya rce(s) Supporting Document(s) White Blood Count 8.0 4.0-10.0 [facility] [place] Red Blood Count 4.56 4.00-5.40 [facility] [place] Hemoglobin 13.3 12.0-16.0 [facility] ([facility] [place]) Hematocrit 41.3 36.0-47.0 [facility] ([facility] [place]) Platelets 321 172-450 [facility] ([facility] [place] ID Date Data Source [id number] 04/17/2021 10:57:00 AM EDT [facility] ([facility] [place] Name Value Range Interpretation Code Description Data Bhavya rce(s) Supporting Document(s) Glucose 148 70-106 [facility] ([facility] [place] Blood Urea Nitrogen 15.9 7-18 [facility] ([facility] Sodium 140 135-145 [facility] ([facility] [place] Glomerular filtration rate/1.73 sq M.pre dicted [Volume Rate/Area] in Serum or Plasma by Creatinine-based formula (MDRD) 45 [facility] [place] Creatinine 1.2 0.55-1.3 [facility] ([facility] [place]) Potassium 4.4 3.5-5.5 [facility] [place] Calcium 9.3 8.5-10.1 [facility] [place] Carbon Dioxide 30.1 21-32 [facility] [place] Chloride 103.5 70-106 [facility] [place] Albumin 4.0 3.2-5.2 [facility] ([facility] [place] Phosphorus 3.6 2.5-4.9 [facility] ([facility] [place]) ID Date Data Source [id number] 03/16/2021 12:05:00 PM EDT [facility] Name Value Range Interpretation Code Description Data Bhavya rce(s) Supporting Document(s) White Blood Count 8.5 4.3-10.9 [facility] [place] Hemoglobin 14.4 13.0-17.0 [facility] [place] Red Blood Count 4.83 4.70-6.20 [facility] [place] Platelets 343 130-400 [facility] [place] Hematocrit 43.5 39.0-50.0 [facility] ([facility]) ID Date Data Source [id number] 03/16/2021 12:05:00 PM EDT [facility] ([facility]) Name Value Range Interpretation Code Description Data Bhavya rce(s) Supporting Document(s) Glucose 108 70-100 [facility] ([facility]) Glomerular filtration rate/1.73 sq M.pre dicted [Volume Rate/Area] in Serum or Plasma by Creatinine-based formula (MDRD) 49 [facility] ([facility]) Creatinine 1.1 0.6-1.5 [facility] ([facility]) Blood Urea Nitrogen 12.4 5-21 [facility] ([facility]) Chloride 99.1 98-110 [facility] ([facility]) Sodium 141.6 136-146 [facility] ([facility]) Potassium 3.84 3.5-5.3 [facility] ([facility]) Calcium 8.7 8.4-10.4 [facility] ([facility]) Phosphorus 3.7 [facility] ([facility]) Carbon Dioxide 30.0 20-32 [facility] ([facility]) Albumin 4.2 3.5-4.7 [facility] ([facility]) ID Date Data Source [id number] 09/08/2020 11:32:00 AM EDT [facility] ([facility]) Name Value Range Interpretation Code Description Data Bhavya rce(s) Supporting Document(s) Hemoglobin A1c/Hemoglobin.total in Blood 6.4 [facility] ([facility]) ID Date Data Source [id number] 09/08/2020 11:32:00 AM EDT [facility] ([facility]) Name Value Range Interpretation Code Description Data Bhavya rce(s) Supporting Document(s) Triglycerides 157 [facility] ([facility]) Cholesterol 213 120-200 [facility] HDL 55 40-60 [facility] ([facility]) Cholesterol in LDL [Mass/volume] in Serum or Plasma by calculation 13 0 [facility] ([facility]) Chol/HDL Ratio 3.9 [facility] ([facility]) ID Date Data Source [id number] 09/08/2020 11:32:00 AM EDT [facility] ([facility]) Name Value Range Interpretation Code Description Data Bhavya rce(s) Supporting Document(s) Free T4 1.14 [facility] ([facility]) Thyroid Stimulating Hormone 3.950 ME DENT ([facility]) ID Date Data Source [id number] 09/08/2020 11:32:00 AM EDT [facility] ([facility]) Name Value Range Interpretation Code Description Data Bhavya rce(s) Supporting Document(s) Egfr (Calculated) 59 [facility] ([facility]) ID Date Data Source [id number] 09/08/2020 11:32:00 AM EDT [facility]) Name Value Range Interpretation Code Description Data Bhavya rce(s) Supporting Document(s) Albumin [Mass/volume] in Serum or Plasma 4.2 [facility] ([facility]) Alanine aminotransferase [Enzymatic activity/volume] in Serum or Pl asma 18 [facility] ([facility]) Calcium [Mass/volume] in Serum or Plasma 8.1 [facility] ([facility]) Carbon dioxide, total [Moles/volume] in Serum or Plasma 27 [facility] ([facility]) Chloride [Moles/volume] in Serum or Plasma 99 [facility] ([facility]) Alkaline phosphatase [Enzymatic activity/volume] in Serum or Plasma 6 7 [facility] ([facility]) Aspartate aminotransferase [Enzymatic activity/volume] in Serum or Plasma 23 [facility] ([facility]) Potassium [Moles/volume] in Serum or Plasma 4.5 [facility] ([facility]) Sodium 140 [facility] ([facility]) Protein [Mass/volume] in Serum or Plasma 6.7 [facility] ([facility]) Glucose 120 70-100 [facility] ([facility]) Creatinine For GFR 0.99 [facility] (Car [facility]) Urea nitrogen [Mass/volume] in Serum or Plasma 14 [facility] ([facility]) ID Date Data Source [id number] 09/08/2020 11:32:00 AM EDT [facility] ([facility]) Name Value Range Interpretation Code Description Data Bhavya rce(s) Supporting Document(s) Hemoglobin [Mass/volume] in Blood 13.5 [facility] ([facility]) Hematocrit [Volume Fraction] of Blood by Automated count 41.1 [facility] ([facility]) Erythrocyte mean corpuscular volume [Entitic volume] by Automated c ount 89 [facility] ([facility]) Erythrocyte mean corpuscular hemoglobin [Entitic mass] by Au tomated count 29.3 [facility] ([facility]) Platelets [#/volume] in Blood by Automated count 287 [facility] ([facility]) Erythrocyte distribution width [Ratio] by Automated count 14.8 [facility] ([facility]) Erythrocyte mean corpuscular hemoglobin concentration [Mass/volume] by Automated count 32.8 [facility] ([facility]) Band form neutrophils/100 leukocytes in Body fluid by Manual count Laboratory test result [facility] ([employer] [facility]) Platelet mean volume [Entitic volume] in Blood by [place] [facility] test result [facility] ([employer] [facility]) Neutrophils 57 [facility] ([facility] Monocytes 7 [facility] ([facility]) Lymphocytes/100 leukocytes in Body fluid by Manual count 32 [facility] ([facility]) Fluid Body Eosinophils 3 [facility] ([facility]) Basophils/100 leukocytes in Blood 1 [facility] Eosinophils [#/volume] in Blood by Automated count 0.2 [facility] ([facility] Basophils [#/volume] in Blood by Automated count 0.1 [facility] Neutrophils [#/volume] in Blood by Automated count 4.7 [facility] Lymphocytes [#/volume] in Blood 2.7 [facility] Monocytes [#/volume] in Blood 0.6 [facility] ([facility]) ID Date Data Source [id number] 09/08/2020 11:32:00 AM EDT [facility] ([facility]) Name Value Range Interpretation Code Description Data Bhavya rce(s) Supporting Document(s) White Blood Count 8.3 4.3-10.9 [facility] ([facility]) Hemoglobin 13.5 13.0-17.0 [facility] ([facility]) Platelets 287 130-400 [facility] ([facility]) Red Blood Count 4.61 4.70-6.20 [facility] ([facility]) Hematocrit 41.1 39.0-50.0 [facility] ([facility]) Procedure Social History Code Duration Value Status Description Data Source(s ) Smoking 03/28/2021 12:00:00 AM EDT Patient is a former smoker completed Patient is a former smoker [facility] ([facility]) Smoking 11/04/2020 12:00:00 AM EST Patient is a former smoker completed Patient is a former smoker [facility] ([facility], [facility]) Vital Signs ID Date Data Source [id number] Name Value Range Interpretation Code Description Data Source(s) Body weight 239.8 [lb_av] 239.8 [lb_av] eCW1 ([facility]) Systolic blood pressure 142 mm[Hg] 142 mm[Hg] e CW1 ([facility]) Diastolic blood pressure 88 mm[Hg] 88 mm[Hg] eCW1 ([facility]) Body height 62 [in_i] 62 [in_i] W1 ([facility] Body mass index (BMI) [Ratio] 43.86 kg/m2 43.86 kg/m2 [facility] ([facility]) Body mass index (BMI) [Ratio] 41.8 kg/m2 41.8 k g/m2 [facility] ([facility], ) Systolic blood pressure 140 mm[Hg] 140 mm[Hg] M EDENT ([facility], ) Respiratory rate 14 /min 14 /min [facility] ( [facility], ) Body height 63 [in_i] 63 [in_i] [facility] ([facility], ) 5'3" Body weight 236.00 [lb_av] 236.00 [lb_av] MEDEN T ([facility], ) Dixon body weight 115 [lb_av] 115 [lb_av] MEDEN T ([facility], ) Diastolic blood pressure 90 mm[Hg] 90 mm[Hg] [facility] ([facility], ) Heart rate 58 /min 58 /min [facility] ([facility], ) Heart rate 56 /min 56 /min [facility] ([facility]) Regular Respiratory rate 16 /min 16 /min [facility] ( [facility]) Body mass index (BMI) [Ratio] 41.8 kg/m2 41.8 k g/m2 [facility] ([facility]) Systolic blood pressure 126 mm[Hg] 126 mm[Hg] M EDENT ([facility]) sitting, large cuff Diastolic blood pressure 66 mm[Hg] 66 mm[Hg] [facility] ([facility]) sitting, large cuff Systolic blood pressure 122 mm[Hg] 122 mm[Hg] M EDENT ([facility]) sitting Diastolic blood pressure 66 mm[Hg] 66 mm[Hg] [facility] ([facility]) sitting Body weight 236.00 [lb_av] 236.00 [lb_av] MEDEN T ([facility]) Body height 63 [in_i] 63 [in_i] [facility] ([facility]) 5'3" Systolic blood pressure 102 mm[Hg] 102 mm[Hg] M EDENT ([facility] [place], [facility]) Body weight 235.00 [lb_av] 235.00 [lb_av] MEDEN T ([facility] [place], [facility]) Body height 63 [in_i] 63 [in_i] [facility] ([facility] [place], [facility]) 5'3" Body mass index (BMI) [Ratio] 41.6 kg/m2 41.6 k g/m2 [facility] ([facility], [facility]) Diastolic blood pressure 63 mm[Hg] 63 mm[Hg] MED[facility] ([facility], [facility]) Heart rate 68 /min 68 /min [facility] ([facility] [place], [facility]) Respiratory rate 18 /min 18 /min [facility] ( [facility] [place], [facility]) Oxygen saturation in Arterial blood by Pulse [facility]ximetry 97 % 97 % [facility] Body temperature 98.0 [degF] 98.0 [degF] [facility] ([facility] [place], [facility]) Body height 63 [in_i] 63 [in_i] [facility] ([facility]) 5'3" Body weight 231.00 [lb_av] 231.00 [lb_av] MEDEN T ([facility]) Body mass index (BMI) [Ratio] 40.9 kg/m2 40.9 k g/m2 [facility] ([facility]) Heart rate 60 /min 60 /min [facility] ([facility]) Regular Systolic blood pressure 126 mm[Hg] 126 mm[Hg] M EDENT ([facility]) sitting Diastolic blood pressure 70 mm[Hg] 70 mm[Hg] [facility] ([facility]) sitting Respiratory rate 16 /min 16 /min [facility] ( [facility]) Systolic blood pressure 126 mm[Hg] 126 mm[Hg] M EDENT ([facility]) sitting, large cuff Diastolic blood pressure 74 mm[Hg] 74 mm[Hg] [facility] ([facility]) sitting, large cuff
--- OUTSIDE RECORDS SUMMARY | 2021-09-15 14:11 | CCD ---
Author Author [facility] Organization [facility] Address Unknown Phone Unavailable Care Team Providers Care Critical Care Rn Name Role Phone Gomez, Phuong MANAGER OF CONSTRUCTION Unavailable Unavailable Gomez, Phuong MANAGER OF CONSTRUCTION Unavailable Unavailable Gomez, Phuong MANAGER OF CONSTRUCTION Unavailable Unavailable Gomez, Phuong MANAGER OF CONSTRUCTION Unavailable Unavailable Gomez, Phuong MANAGER OF CONSTRUCTION Unavailable Unavailable Gomez, Phuong MANAGER OF CONSTRUCTION Unavailable Unavailable Gomez, Phuong MANAGER OF CONSTRUCTION Unavailable Unavailable Gomez, Phuong MANAGER OF CONSTRUCTION Unavailable Unavailable Gomez, Phuong MANAGER OF CONSTRUCTION Unavailable Unavailable Gomez, Phuong MANAGER OF CONSTRUCTION Unavailable Unavailable Gomez, Phuong MANAGER OF CONSTRUCTION Unavailable Unavailable Gomez, Phuong MANAGER OF CONSTRUCTION Unavailable Unavailable Gomez, Phuong MANAGER OF CONSTRUCTION Unavailable Unavailable Belgica Hooper Unavailable Unavailable Belgica [...] is protected by Article 27-F of the [facility] Public Health law. If you continue you may have access to information: Regarding HIV / AIDS; Provided by facilities licensed or operated by the [facility] Office of Mental Health; or Provided by the [facility] Office for People With Developmental Disabilities. If such information is present, then the following [facility] mandated warning applies: This information has been [...] law may result in a fine or group home sentence or both. A general authorization for the release of medical or other information is NOT sufficient authorization for further disc losure. Family History Family Member Name Family Member Gender Family Member Status Date o f Status Description Data Source(s) Unknown Unknown Problem [facility] ([facility]) Unknown Male Problem MEDENT ([facility]) Unknown Unknown Problem [facility] ([facility] Unknown Unknown Problem [facility] ([facility]) Encounters Encounter Providers Location Date Indications Data Source(s ) Outpatient Attender: Juana Haskins MD Main office - [place] 07/13/2021 09:30:00 AM EDT MEDENT ([facility]) ( [place]NN) [facility] 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 Exam [address] [place] [address] 07/03/2021 12:00:00 AM EDT eCW1 ([facility]) Outpatient Attender: BENITA Cummings Buildin 06/19/2021 09:30:00 AM EDT MEDENT (Eliceo Ni MD) Outpatient Attender: Juana Haskins MD Main office - [place] 05/03/2021 08:30:00 AM EDT MEDENT ([facility]) Outpatient Attender: Urmila CARY Main Office 03/28/2021 11:30:00 AM EDT [facility] ([facility] Outpatient Attender: BENITA Cummings Buildin alia 03/19/2021 09:00:00 AM EDT MEDENT ([facility]) Outpatient Attender: BENITA Cummings Buildin alia 12/18/2020 09:00:00 AM EST MEDENT ([facility] MD) Outpatient Attender: Phuong garvey 11/04/2020 07:20:00 AM EST MEDENT ([facility]) Outpatient Attender: Urmila CARY Main Office 09/28/2020 08:45:00 AM EST MEDENT ([facility]) Outpatient Attender: BENITA CARY Medical Buildin g 09/15/2020 10:00:00 AM EDT MEDENT ([facility] Ni [facility]) Immunizations Vaccine Date Status Description Data Source(s) COVID-19 VACCINE Candido 03/22/2021 12:00:00 AM EDT completed [facility] Vaccine Series Complete: YESThis Data wa s Submitted to [facility]. Medications Medication Brand Name Start Date Product Form Dose Route Admi nistrative Instructions Pharmacy Instructions Status Indications Reaction Description Data Source(s) Calcium Carbonate 500 MG Chewable Tablet [Tums] Tums 03/27/2021 12:00:00 AM EDT active MEDENT ( [facility]) Calcitriol 0.07387 MG Oral Capsule Calcitriol 09/27/2020 12:00:00 AM EST ORAL active [facility] ([facility]) Multivitamin Women 50+ 09/27/2020 12:00:00 AM EST ORAL active MED[facility] ([facility]) Calcium 1200 09/27/2020 12:00:00 AM EST ORAL activ e MEDENT ([facility]) Turmeric 09/27/2020 12:00:00 AM EST ORAL active MED[facility] ([facility]) Calcium Carbonate 1250 MG / Cholecalciferol 125 UNT Oral Tab let Calcium 500 + D 04/25/2020 12:00:00 AM EDT ORAL completed MEDENT ([facility]) Insurance Providers Payer name Policy type / Coverage type Policy ID Covered green party ID Covered green party's relationship to danielle Policy Danielle Plan Information MEDICARE [id number] Gladys [id number] MEDICARE [id number] Gladys [id number] MEDICARE [id number] Gladys [id number] BS [place] Medig[place] Part B [id number] Self BS [place] Medig[place] Part B [id number] Self [id number] BS [place] Medigap Part B [id number] Self Z [id number] BS [place] Medigap Part B [id number] Self [id number] BS [place] Medigap Part B [id number] Self Z [id number] BS [place] Medigap Part B [id number] Self Z [id number] BS [place] Medigap Part B [id number] Self [id number] MEDICARE BLUE PPO 306 [id number] SP [id number] MEDICARE BLUE PPO 306 [id number] SP [id number] Blue Shield MCR Advantage Commercial [id number] Self [id number] Blue Shield MCR Advantage Commercial [id number] Self Blue Shield MCR Advantage Medigap Part B [id number] Self [id number] [employer] BCBS P [id number] S [id number] Excell[employer] BCYO P [id number] S [id number] MEDICARE BLUE PPO 306 [id number] SP [id number] MEDICARE BLUE PPO 306 [id number] SP [id number] [facility]) Commercial [id number] Self [id number] MEDICARE COMPLETE [id number] SP [id number] [facility]) Commercial [id number] Self [id number] [facility] Health Maintenance Organization (HMO) [id number] Self [id number] [facility] MEDICARE [id number] Gladys [id number] [facility] MEDICARE [id number] Gladys [id number] [facility] MEDICARE [id number] Gladys [id number] [facility] MEDICARE [id number] Gladys [id number] 54 [facility] MEDICARE [id number] [phone] [id number] INSURANCE COVID-19 COVID Gladys C OVID INSURANCE COVID-19 [id number] [id number] INSURANCE COVID-19 COVID Gladys C OVID [facility] HEA [id number] S [id number] MEDICARE BLUE PPO 306 [id number] SP [id number] [employer] BCBS B [id number] S [id number] BS Medicare Blue Ppo/Hmo Commercial [id number] Self MEDICARE [id number] SP [id number] BCBS - Medicare Blue Ppo Commercial [id number] Self ANSI-Medicare Part B [id number] [facility] ([facility]) Commercial [id number] Self [id number] [facility] Commercial [id number] Self [id number] [employer] BC/BS S [id number] S [id number] [facility] Commercial [id number] Self [id number] [facility]/Medicare Solu Commercial [id number] Self [id number] [facility]/Medicare Solu Commercial [id number] Self [id number] [facility]/Medicare Solu Commercial [id number] Self [id number] MEDICARE COMPLETE [id number] [facility] Medigap Part B [id number] Self [id number] MEDICARE COMPLETE-[facility] O [id number] S [id number] Problems, Conditions, and Diagnoses Code Display Name Description Problem Type Effective Dates Data Source(s) Z90.710 [id number] 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 Problem 07/03/2021 12:00:00 AM EDT eCW1 ([facility]) Z90.722 [id number] Acquired absence of ovaries, bilateral Pr oblem 07/03/2021 12:00:00 AM EDT eC1 ([facility]) [id number] Obstructive sleep apnea syndrome Obstructive sle ep apnea syndrome Problem 05/03/2021 12:00:00 AM EDT MEDENT ([facility]) [id number] Malaise and fatigue Malaise and fatigue Problem 0 05/03/2021 12:00:00 AM EDT MED[facility] ([facility]) [id number] Hypersomnia Hypersomnia Problem 05/03/2021 12:00:00 AM EDT MED[facility] ([facility]) I48.0 Paroxysmal atrial fibrillation Paroxysmal atrial fibri llation Problem 05/03/2021 12:00:00 AM EDT MEDENT ([facility] ) G47.14 Hypersomnia Hypersomnia Problem 05/03/2021 12:00:00 AM EDT MEDENT ([facility] ) R53.83 Malaise and fatigue Malaise and fatigue Problem 0 05/03/2021 12:00:00 AM EDT MEDENT ([facility] ) G47.33 Obstructive sleep apnea syndrome Obstructive sle ep apnea syndrome Problem 05/03/2021 12:00:00 AM EDT MEDENT ([facility] ) I11.0 Hypertensive heart disease with congesti ve heart failure Hypertensive heart disease with congestive heart failure Problem 03/28/2021 12:00 :00 AM EDT MEDENT ([facility]) Surgeries/Procedures Procedure Description Date Indications Data Source(s) Polysomnography Sleep Staging 4+ Parameters W/Cpap 07/22/2021 12:00:00 AM EDT MEDENT ([facility] ) OFFICE OUTPATIENT VISIT 15 MINUTES 07/13/2021 12:00:00 AM EDT MEDENT ([facility] ) Polysomnography Sleep Staging 4+ Parameters 06/26/2021 12:00:00 AM EDT MEDENT ([facility] ) OFFICE OUTPATIENT VISIT 15 MINUTES 06/19/2021 12:00:00 AM EDT MEDENT ([facility]) OFFICE OUTPATIENT NEW 30 MINUTES 05/03/2021 12:00:00 A M EDT MEDENT ([facility] ) ECG ROUTINE ECG W/LEAST 12 LDS W/I&R 03/28/2021 12:00: 00 AM EDT MEDENT ([facility]) OFFICE OUTPATIENT VISIT 25 MINUTES 03/28/2021 12:00:00 AM EDT MEDENT ([facility]) OFFICE OUTPATIENT VISIT 15 MINUTES 03/19/2021 12:00:00 AM EDT MEDENT (Eliceo Ni MD) ECG ROUTINE ECG W/LEAST 12 LDS W/I&R 09/28/2020 12:00: 00 AM EST MEDENT ([facility]) Results ID Date Data Source [id number] 08/23/2021 12:42:00 PM EDT MEDENT ([facility]) Name Value Range Interpretation Code Description Data [...] [facility]) ID Date Data Source [id number] 08/23/2021 12:42:00 PM EDT MED[facility] ([facility]) ID Date Data Source [id number] 07/24/2021 12:50:00 PM EDT [facility] ([facility] Name Value Range Interpretation Code Description Data Bhavya rce(s) Supporting Document(s) Red Blood Count 4.41 4.70-6.20 [facility] ([facility]) White Blood Count 10.0 4.3-10.9 [facility] ([facility]) Platelets 359 130-400 [facility] Hematocrit 40.5 39.0-50.0 MED[facility] ([facility]) Hemoglobin 13.3 13.0-17.0 [facility] ([facility]) ID Date Data Source [id number] 07/24/2021 12:50:00 PM EDT MED[facility] ([facility]) Name Value Range Interpretation Code Description Data Bhavya rce(s) Supporting Document(s) Glucose 115 70-100 MED[facility] ([facility]) Creatinine 1.2 0.6-1.5 MED[facility] ([facility]) Blood Urea Nitrogen 18.2 5-21 MED[facility] ([facility]) Glomerular filtration rate/1.73 sq M.pre dicted [Volume Rate/Area] in Serum or Plasma by Creatinine-based formula (MDRD) 45 MED[facility] ([facility]) Potassium 4.06 3.5-5.3 MED[facility] ([facility]) Sodium 141.3 136-146 MED[facility] ([facility]) Carbon Dioxide 30.2 20-32 MED[facility] ([facility]) Chloride 103.7 98-110 MED[facility] ([facility]) Calcium 8.9 8.4-10.4 [facility] Albumin 4.0 3.5-4.7 [facility] ([facility]) Phosphorus 3.4 [facility] ([facility]) ID Date Data Source WWBC DIGITAL / TYRONE BILATERAL MAMMO SCREENING (Ultraso und if indicated) 07/03/2021 12:00:00 AM EDT eC ([facility]) Name Value Range Interpretation Code Description Data Bhavya rce(s) Supporting Document(s) WWBC DIGITAL / TYRONE BILAT ERAL MAMMO SCREENING (Ultrasound if indicated) [facility] ([facility]) ID Date Data Source [id number] 06/20/2021 08:37:00 AM EDT MED[facility] ([facility]) Name Value Range Interpretation Code Description Data Bhavya rce(s) Supporting Document(s) White Blood Count 9.8 4.0-10.0 [facility] ([facility]) Red Blood Count 4.85 4.00-5.40 [facility] ([facility]) Platelets 333 172-450 [facility] Hemoglobin 14.4 12.0-16.0 [facility] ([facility]) Hematocrit 44.1 36.0-47.0 [facility] ([facility]) ID Date Data Source [id number] 06/20/2021 08:37:00 AM EDT [facility] ([facility] Name Value Range Interpretation Code Description Data Bhavya rce(s) Supporting Document(s) Glucose 123 70-106 [facility] Blood Urea Nitrogen 17.3 7-18 [facility] ([facility]) Glomerular filtration rate/1.73 sq M.pre dicted [Volume [...] [facility]) ID Date Data Source [id number] 05/17/2021 03:50:00 PM EDT [facility] ([facility] Name Value Range Interpretation Code Description Data Bhavya rce(s) Supporting Document(s) Magnesium Level 1.66 1.6-2.6 [facility] ([facility]) ID Date Data Source [id number] 05/17/2021 03:50:00 PM EDT MED[facility] ([facility]) Name Value Range Interpretation Code Description Data Bhavya rce(s) Supporting Document(s) White Blood Count 9.0 4.0-10.0 [facility] ([facility]) Platelets 312 172-450 [facility] Red Blood Count 4.68 4.00-5.40 [facility] ([facility]) Hemoglobin 14.0 12.0-16.0 [facility] ([facility]) Hematocrit 42.2 36.0-47.0 [facility] ([facility]) ID Date Data Source [id number] 05/17/2021 03:50:00 PM EDT MED[facility] ([facility] [...] [facility]) ID Date Data Source [id number] 04/17/2021 10:57:00 AM EDT MED[facility] ([facility] [...] [facility]) ID Date Data Source [id number] 04/17/2021 10:57:00 AM EDT [facility] ([facility] [...] [facility]) ID Date Data Source [id number] 03/16/2021 12:05:00 PM EDT MEDENT ([facility]i [facility]y [...] Hematocrit 43.5 39.0-50.0 [facility] ([facility]) ID Date Data Source [id number] 03/16/2021 12:05:00 PM EDT MED[facility] ([facility]) Name Value Range Interpretation Code Description Data Bhavya rce(s) Supporting Document(s) Glucose 108 70-100 [facility] ([facility]) Glomerular filtration rate/1.73 sq M.pre dicted [Volume Rate/Area] in Serum or Plasma by Creatinine-based formula (MDRD) 49 [facility] ([facility]) Creatinine 1.1 0.6-1.5 [facility] ([facility]) Blood Urea Nitrogen 12.4 5-21 MED[facility] ([facility]) Chloride 99.1 98-110 MED[facility] ([facility]) Sodium 141.6 136-146 MED[facility] ([facility]) Potassium 3.84 3.5-5.3 MED[facility] ([facility]) Calcium 8.7 8.4-10.4 MED[facility] ([facility]) Phosphorus 3.7 [facility] ([facility]) Carbon Dioxide 30.0 20-32 MED[facility] ([facility]) Albumin 4.2 3.5-4.7 MED[facility] ([facility]) ID Date Data Source [id number] 09/08/2020 11:32:00 AM EDT MEDENT ([facility]) Name Value Range Interpretation Code Description Data Bhavya rce(s) Supporting Document(s) Hemoglobin A1c/Hemoglobin.total in Blood 6.4 MED[facility] ([facility]) ID Date Data Source [id number] 09/08/2020 11:32:00 AM EDT MEDENT ([facility]) Name Value Range Interpretation Code Description Data Bhavya rce(s) Supporting Document(s) Triglycerides 157 MED[facility] ([facility]) Cholesterol 213 120-200 [facility] ([facility] HDL 55 40-60 [facility] ([facility]) Cholesterol in LDL [Mass/volume] in Serum or Plasma by calculation 13 0 [facility] ([facility]) Chol/HDL Ratio 3.9 [facility] ([facility]) ID Date Data Source [id number] 09/08/2020 11:32:00 AM EDT MEDENT ([facility]) Name Value Range Interpretation Code Description Data Bhavya rce(s) Supporting Document(s) Free T4 1.14 MEDENT ([facility]) Thyroid Stimulating Hormone 3.950 ME DENT ([facility]) ID Date Data Source [id number] 09/08/2020 11:32:00 AM EDT MED[facility] ([facility]) Name Value Range Interpretation Code Description Data Bhavya rce(s) Supporting Document(s) Egfr (Calculated) 59 MED[facility] ([facility]) ID Date Data Source [id number] 09/08/2020 11:32:00 AM EDT [facility] Name Value Range Interpretation Code Description Data Bhavya rce(s) Supporting Document(s) Albumin [Mass/volume] in Serum or Plasma 4.2 MED[facility] ([facility]) Alanine aminotransferase [Enzymatic activity/volume] in Serum or Pl asma 18 MEDENT ([facility]) Calcium [Mass/volume] in Serum or Plasma 8.1 MED[facility] ([facility]) Carbon dioxide, total [Moles/volume] in Serum or Plasma 27 MED[facility] ([facility]) Chloride [Moles/volume] in Serum or Plasma 99 MED[facility] ([facility]) Alkaline phosphatase [Enzymatic activity/volume] in Serum or Plasma 6 7 MED[facility] ([facility]) Aspartate aminotransferase [Enzymatic activity/volume] in Serum or Plasma 23 MED[facility] ([facility]) Potassium [Moles/volume] in Serum or Plasma 4.5 MED[facility] ([facility]) Sodium 140 [facility] ([facility]) Protein [Mass/volume] in Serum or Plasma 6.7 MED[facility] ([facility]) Glucose 120 70-100 MED[facility] ([facility]) Creatinine For GFR 0.99 MED[facility] ([facility]) Urea nitrogen [Mass/volume] in Serum or Plasma 14 MED[facility] ([facility]) ID Date Data Source [id number] 09/08/2020 11:32:00 AM EDT MED[facility] ([facility]) Name Value Range Interpretation Code Description Data Bhavya rce(s) Supporting Document(s) Hemoglobin [Mass/volume] in Blood 13.5 MED[facility] ([facility]) Hematocrit [Volume Fraction] of Blood by Automated count 41.1 MED[facility] ([facility] Erythrocyte mean corpuscular volume [Entitic volume] by Automated c ount 89 MED[facility] ([facility]) Erythrocyte mean corpuscular hemoglobin [Entitic mass] by Au tomated count 29.3 MED[facility] ([facility]) Platelets [#/volume] in Blood by Automated count 287 MED[facility] ([facility]) Erythrocyte distribution width [Ratio] by Automated count 14.8 MED[facility] ([facility]) Erythrocyte mean corpuscular hemoglobin concentration [Mass/volume] by Automated count 32.8 MED[facility] ([facility]) Band form neutrophils/100 leukocytes in Body fluid by Manual count Laboratory test result MEDENT ([employer] [facility] [employer] [facility]) Platelet mean volume [Entitic volume] in Blood by [place] Laboratory test result MEDENT ([employer] [facility]) Neutrophils 57 [facility] ([facility]) Monocytes 7 MED[facility] ([facility]) Lymphocytes/100 leukocytes in Body fluid by Manual count 32 [facility] ([facility]) Fluid Body Eosinophils 3 [facility] ([facility]) Basophils/100 leukocytes in Blood 1 MEDENT (Cardiology [...] in Blood 0.6 MED[facility] ([facility]) ID Date Data Source [id number] 09/08/2020 11:32:00 AM EDT MEDENT ([facility]) Name Value Range Interpretation Code Description Data Bhavya rce(s) Supporting Document(s) White Blood Count 8.3 4.3-10.9 MED[facility] ([facility]) Hemoglobin 13.5 13.0-17.0 MED[facility] ([facility]) Platelets 287 130-400 [facility] ([facility]) Red Blood Count 4.61 4.70-6.20 MED[facility] ([facility]io [facility] [facility]) Hematocrit 41.1 39.0-50.0 MED[facility] ([facility]) Procedure Social History Code Duration Value Status Description Data Source(s ) Smoking 03/28/2021 12:00:00 AM EDT Patient is a former smoker completed Patient is a former smoker [facility] ([facility]) Smoking 11/04/2020 12:00:00 AM EST Patient is a former smoker completed Patient is a former smoker MED[facility] ([facility], [facility]) Vital Signs ID Date Data Source UNK Name Value Range Interpretation Code Description Data Source(s) Body weight 239.8 [lb_av] 239.8 [lb_av] eCW1 ([facility]) Body height 62 [in_i] 62 [in_i] eCW1 ([facility]) Body mass index (BMI) [Ratio] 43.86 kg/m2 43.86 kg/m2 W1 ([facility]) Systolic blood pressure 142 mm[Hg] 142 mm[Hg] e CW1 ([facility]) Diastolic blood pressure 88 mm[Hg] 88 mm[Hg] eCW1 ([facility]) Body mass index (BMI) [Ratio] 41.8 kg/m2 41.8 k g/m2 MEDENT ([facility], ) Systolic blood pressure 140 mm[Hg] 140 mm[Hg] M EDENT ([facility], ) Respiratory rate 14 /min 14 /min MEDENT ( [facility], ) Diastolic blood pressure 90 mm[Hg] 90 mm[Hg] MEDENT ([facility], ) Heart rate 58 /min 58 /min MEDENT ([facility], ) Body height 63 [in_i] 63 [in_i] MEDENT ([facility], ) 5'3" Body weight 236.00 [lb_av] 236.00 [lb_av] MEDEN T ([facility], ) [place] body weight 115 [lb_av] 115 [lb_av] MEDEN T ([facility], ) Heart rate 56 /min 56 /min MEDENT ([facility] Regular Body mass index (BMI) [Ratio] 41.8 kg/m2 41.8 k g/m2 MEDENT ([facility]) Systolic blood pressure 126 mm[Hg] 126 mm[Hg] M EDENT ([facility]) sitting, large cuff Respiratory rate 16 /min 16 /min MEDENT ( [facility]) Diastolic blood pressure 66 mm[Hg] 66 mm[Hg] MEDENT ([facility]) sitting Diastolic blood pressure 66 mm[Hg] 66 mm[Hg] MEDENT ([facility]) sitting, large cuff Systolic blood pressure 122 mm[Hg] 122 mm[Hg] M EDENT ([facility]) sitting Body weight 236.00 [lb_av] 236.00 [lb_av] MEDEN T ([facility]) Body height 63 [in_i] 63 [in_i] [facility]) 5'3" Systolic blood pressure 102 mm[Hg] 102 mm[Hg] M EDENT ([facility] [place], [facility]) Body height 63 [in_i] 63 [in_i] MEDENT ([facility] [place], [facility]) 5'3" Diastolic blood pressure 63 mm[Hg] 63 mm[Hg] MEDENT ([facility], [facility]) Heart rate 68 /min 68 /min MEDENT ([facility] [place], [facility]) Respiratory rate 18 /min 18 /min MEDENT ( [facility] [place], [facility]) Body weight 235.00 [lb_av] 235.00 [lb_av] MEDEN T ([facility], [facility]) Body mass index (BMI) [Ratio] 41.6 kg/m2 41.6 k g/m2 MEDENT ([facility] [place], [facility]) Oxygen saturation in Arterial blood by Pulse oximetry 97 % 97 % MEDENT ([facility], [facility]) Body temperature 98.0 [degF] 98.0 [degF] MEDENT ([facility] [place], [facility]) Body height 63 [in_i] 63 [in_i] [facility] ([facility]) 5'3" Body weight 231.00 [lb_av] 231.00 [lb_av] MEDEN T ([facility]) Body mass index (BMI) [Ratio] 40.9 kg/m2 40.9 k g/m2 MED[facility] ([facility]) Heart rate 60 /min 60 /min [facility] ([facility]) Regular Systolic blood pressure 126 mm[Hg] 126 mm[Hg] M EDENT ([facility]) sitting Diastolic blood pressure 70 mm[Hg] 70 mm[Hg] MED[facility] ([facility]) sitting Respiratory rate 16 /min 16 /min MED[facility] ( [facility]) Systolic blood pressure 126 mm[Hg] 126 mm[Hg] M EDENT ([facility]) sitting, large cuff Diastolic blood pressure 74 mm[Hg] 74 mm[Hg] MED[facility] ([facility]) sitting, large cuff
[2021-09-15 14:14] VITALS: BP 170/83
== END 2021-09-15 14:22 | disposition home or self-care (01) ==
LOC: M ED 13:28
DX: R04.0 Epistaxis (principal); E11.9 Type 2 diabetes mellitus without complications; I10 Essential (primary) hypertension; I48.91 Unspecified atrial fibrillation; M79.7 Fibromyalgia; E21.3 Hyperparathyroidism, unspecified; Z79.899 Other long term (current) drug therapy; Z79.01 Long term (current) use of anticoagulants; Z88.1 Allergy status to other antibiotic agents; Z88.2 Allergy status to sulfonamides

== ENCOUNTER → 2021-12-04 | Outpatient (REF) | payer MEDICARE ==
[~2021-12-04] MED LIST changes: +LOSA100T45 PO; -LOSA100T50 PO; +LOSA25TA13 PO; -LOSA25TA14 PO; +LOSA50TA28 PO; -LOSA50TA88 PO
[2021-12-04 13:57] LABS: MAGNESIUM LEVEL 2.1 MG/DL (1.8-2.4)
[2021-12-04 17:07] LABS: C REACTIVE PROTEIN QUANTITATIV 1.13 MG/DL (0.00-0.30)
== END ==
LOC: M LAB REF 13:04
PROVIDERS: ATTEND Nurse Practitioner Family
DX: R53.83 Other fatigue (principal); E83.42 Hypomagnesemia; R68.2 Dry mouth, unspecified; K59.00 Constipation, unspecified

== ENCOUNTER → 2022-03-29 | Outpatient (REF) | payer MEDICARE | LOC: M LAB REF 16:18 | PROVIDERS: ATTEND Internal Medicine | DX: R30.0 Dysuria (principal) ==

== ENCOUNTER → 2022-05-29 | Outpatient (CLI) | payer MEDICARE ==
[~2022-05-29] MED LIST changes: +FLEC1TAB PO; +KRIL1CAP6 PO; +METO25TA4 PO; +MULT-90 PO; +ODOR100T3 PO; +REDCAP3 PO; +TUMS500C PO; +VITA100T59 PO
== END ==
LOC: M LABSMTC 09:16
PROVIDERS: ATTEND Anesthesiology
DX: Z01.818 Encounter for other preprocedural examination (principal); Z11.52 Encounter for screening for COVID-19

== ENCOUNTER 2022-06-03 08:08 | Day surgery (SDC) | payer MEDICARE ==
[~2022-06-03] VITALS: Ht 160 cm; Wt 94.8 kg
[~2022-06-03 08:08] MED LIST changes: +LIDOCAINE 2% 100MG/5ML SDV (FOR ANES.) As Ordered ONE; +NS 1,000 ML IV ONE; +propofoL 200 MG/20 ML VIAL As Ordered ONE
[2022-06-03] MEDS ORDERED: hydrALAZINE 20MG/ML 1ML VIAL (J0360 PER 20MG) As Ordered ONE (09:34)
[2022-06-03 10:08] VITALS: BP 126/59
== END 2022-06-03 10:10 | disposition home or self-care (01) ==
LOC: M OPP 08:08
PROVIDERS: ATTEND Internal Medicine Gastroenterology
DX: Z12.11 Encounter for screening for malignant neoplasm of colon (principal); K63.5 Polyp of colon; K64.0 First degree hemorrhoids; K57.30 Diverticulosis of large intestine without perforation or abscess without bleeding; D17.5 Benign lipomatous neoplasm of intra-abdominal organs; I48.91 Unspecified atrial fibrillation; I10 Essential (primary) hypertension; M79.7 Fibromyalgia; Z88.2 Allergy status to sulfonamides; Z79.01 Long term (current) use of anticoagulants; Z79.899 Other long term (current) drug therapy
CPT/HCPCS: 45380; 88305; J0360

== ENCOUNTER → 2022-06-28 | Outpatient (REF) | payer MEDICARE ==
[~2022-06-28] MED LIST changes: -LIDOCAINE 2% 100MG/5ML SDV (FOR ANES.) As Ordered ONE; -NS 1,000 ML IV ONE; -propofoL 200 MG/20 ML VIAL As Ordered ONE
== END ==
LOC: M LAB REF 17:00
PROVIDERS: ATTEND Nurse Practitioner Family
DX: N39.0 Urinary tract infection, site not specified (principal)

== ENCOUNTER → 2022-07-04 | Outpatient (CLI) | payer MEDICARE | LOC: M WHC 09:50 | PROVIDERS: ATTEND Physician Assistant | DX: Z12.31 Encounter for screening mammogram for malignant neoplasm of breast (principal) ==

== ENCOUNTER → 2022-07-16 | Outpatient (CLI) | payer MEDICARE | LOC: M RAD 11:48 | PROVIDERS: ATTEND Nurse Practitioner Family | DX: R33.9 Retention of urine, unspecified (principal); R39.11 Hesitancy of micturition ==

== ENCOUNTER → 2023-07-16 | Outpatient (CLI) | payer MEDICARE ==
[~2023-07-16] MED LIST changes: -LOSA100T45 PO; +LOSA100T46 PO
== END ==
LOC: M WHC 09:37
PROVIDERS: ATTEND Nurse Practitioner Family
DX: Z12.31 Encounter for screening mammogram for malignant neoplasm of breast (principal)

== ENCOUNTER → 2024-07-22 | Outpatient (CLI) | payer MEDICARE ==
[~2024-07-22] MED LIST changes: -B-CO1TAB12 PO; +B-CO1TAB14 PO
== END ==
LOC: M WHC 08:50
PROVIDERS: ATTEND Nurse Practitioner Family
DX: Z13.820 Encounter for screening for osteoporosis (principal); M85.88 Other specified disorders of bone density and structure, other site

== ENCOUNTER → 2024-07-22 | Outpatient (CLI) | payer MEDICARE | LOC: M WHC 08:49 | PROVIDERS: ATTEND Nurse Practitioner Family | DX: Z12.31 Encounter for screening mammogram for malignant neoplasm of breast (principal); R92.313 Mammographic fatty tissue density, bilateral breasts ==

== ENCOUNTER 2024-12-10 10:54 | Emergency (ER) | payer MEDICARE ==
[~2024-12-10] VITALS: Ht 160 cm; Wt 102.3 kg
[2024-12-10 11:30] LABS: KETONE, URINE AUTO RFX NEGATIVE (NEGATIVE); NITRITE, URINE AUTO RFX NEGATIVE (NEGATIVE); RBC, URINE AUTO RFX 1 /HPF (0-3); SQUAM EPITHELIAL CELL UR AURFX 1 /HPF (0-6); WBC, URINE AUTO RFX 1 /HPF (0-3)
[2024-12-10 11:36] LABS: LEUKOCYTE ESTERASE UR AUTO RFX 1+ (NEGATIVE)
[2024-12-10 12:15] LABS: BASO # 0.1 10^3/uL (0.0-0.2); BASO % 0.5 % (0.0-1.0); EOS # 0.2 10^3/uL (0.0-0.5); EOS % 1.6 % (0.0-3.0); HEMATOCRIT 42.1 % (36.0-47.0); HEMOGLOBIN 14.2 g/dl (12.0-15.5); LYMPH # 2.3 10^3/uL (1.5-5.0); LYMPH % 24.7 % (24.0-44.0); MEAN CORPUSCULAR HGB CONC 33.7 g/dl (32.0-36.5); MEAN CORPUSCULAR VOLUME 88.8 fl (80.0-96.0); MONO # 0.8 10^3/uL (0.0-0.8); MONO % 8.3 % (2.0-8.0); NEUTROPHILS # 5.9 10^3/uL (1.5-8.5); NEUTROPHILS % 64.7 % (36.0-66.0); PLATELET COUNT, AUTOMATED 284 10^3/uL (150-450); RED BLOOD COUNT 4.74 10^6/uL (4.00-5.40); WHITE BLOOD COUNT 9.2 10^3/uL (4.0-10.0)
[2024-12-10 12:51] LABS: ALBUMIN 3.7 G/DL (3.2-5.2); BILIRUBIN,DIRECT 0.1 MG/DL (<0.4); BILIRUBIN,TOTAL 0.4 MG/DL (0.3-1.2); CALCIUM LEVEL 8.2 MG/DL (8.3-10.6); CREATININE FOR GFR 1.03 MG/DL (0.55-1.30); GLOMERULAR FILTRATION RATE 56.2 (>39); POTASSIUM SERUM 4.2 MMOL/L (3.5-5.1); TOTAL PROTEIN 7.3 G/DL (5.7-8.2)
[2024-12-10 13:35] VITALS: BP 138/75; TEMP 97.3; O2SAT 98
== END 2024-12-10 13:36 | disposition home or self-care (01) ==
LOC: M ED 10:54
DX: R10.2 Pelvic and perineal pain (principal); I48.91 Unspecified atrial fibrillation; E11.9 Type 2 diabetes mellitus without complications; Z79.01 Long term (current) use of anticoagulants; Z79.899 Other long term (current) drug therapy; Z88.2 Allergy status to sulfonamides

== ENCOUNTER → 2025-07-27 | Outpatient (CLI) | payer MEDICARE ==
[~2025-07-27] MED LIST changes: -RA T500C2 PO; +TURM500C10 PO
== END ==
LOC: M WHC 08:47
PROVIDERS: ATTEND Nurse Practitioner Family
DX: Z12.31 Encounter for screening mammogram for malignant neoplasm of breast (principal); R92.313 Mammographic fatty tissue density, bilateral breasts

== ENCOUNTER → 2025-10-23 | Outpatient (REF) | payer MEDICARE ==
[~2025-10-23] MED LIST changes: +RED600CA7 PO; -REDCAP3 PO
== END ==
LOC: M LAB REF 15:10
PROVIDERS: ATTEND Physician Assistant
DX: R30.0 Dysuria (principal)